=== PATIENT | female | born 1970 | race Caucasian/White ===

== ENCOUNTER → 2017-05-24 09:19 | Outpatient (CLI) | payer BC, SELFPAY ==
--- NOTE | 2017-05-24 09:29 | NM_ITS ---
NM gastric emptying study CLINICAL INDICATION: ITS.REASON: EARLY SATIETY,VOMITING ORDERING PHYSICIAN: Bia East PATIENT AGE: 47 years DOSE: 0.57 mCi technetium sulfa colloid radiolabeled meal COMPARISON: None FINDINGS: The one half emptying time is markedly prolonged an extrapolated at 269 minutes. The study was carried out for ligamentum 89 minutes. During this time only 60% of the gastric contents had emptied. No obvious reflux on the submitted images. IMPRESSION: Gastroparesis
--- NOTE | 2017-05-24 09:46 | HMH.ITSHM ---
LEVOTHYROXINE FEXOFENADINE HYDROCHLOROTHIAZIDE PHENTERMINE OXYBUTYNIN LISINOPRIL MONTELUKAST TOPIRAMATE GABAPENTIN
== END ==
PROVIDERS: Family Provider Family Medicine; PCP Family Medicine; Visit Provider Family Medicine
DX: R11.10 Vomiting, unspecified (principal); R68.81 Early satiety
CPT/HCPCS: 78264; A9541

== ENCOUNTER → 2017-07-13 08:51 | Outpatient (CLI) | payer BC, SELFPAY ==
[2017-07-13 12:03] LABS: Calcium 9.2 mg/dL (8.5-10.1); Free T4 (Free Thyroxine) 1.27 ng/dl (0.76-1.46); Thyroid Stimulating Hormone 5.15 uIU/ml (0.358-3.740)
[2017-07-15 10:47] LABS: Triiodothyronine (T3) Free 2.5 pg/mL (2.0-4.4)
== END ==
PROVIDERS: Visit Provider Otolaryngology
DX: E06.9 Thyroiditis, unspecified (principal)
CPT/HCPCS: 36415; 82310; 84439; 84443; 84481

== ENCOUNTER → 2017-07-26 09:42 | Outpatient (CLI) | payer BC, SELFPAY ==
--- NOTE | 2017-07-26 09:44 | US_ITS ---
US thyroid HISTORY: Dysphasia, neck pain, difficulty swallowing, ITS.REASON: thyroidectomy hx ORDERING PHYSICIAN: Favian Red MD PATIENT AGE: 47 years COMPARISON: 09/14/2016 FINDINGS: The right lobe is enlarged heterogeneous in nature measuring 4.8 x 2 x 1.9 cm with a solid appearing nodule in the mid aspect of the right lobe at 1.3 x 1.2 x 1.8 cm There is history of left thyroidectomy. There does appear to be some residual tissue in the left thyroid bed at 1.3 cm. IMPRESSION: 1. Status post left thyroidectomy with removal of the large left thyroid lobe with some residual tissue in the thyroid bed. 2. Enlarged right lobe of thyroid gland with a central 1.8 cm solid appearing nodule.
--- NOTE | 2017-07-26 09:44 | FL_ITS ---
EXAM: Barium swallow/esophagram. INDICATION: ITS.REASON: diffi. swallowing, prior thyroidectomy ORDERING PHYSICIAN: Favian Red MD PATIENT AGE: 47 years COMPARISON: 09/23/2016 TECHNIQUE: In the upright position the patient was observed to swallow barium in both the AP and lateral view. The cervical esophagus was examined under fluoroscopy with images obtained. The patient was then placed prone in the right anterior oblique position and was observed to swallow barium with Valsalva technique . FLUOROSCOPY TIME: 41 seconds FINDINGS: There was no evidence of aspiration. There was normal peristalsis. No filling defects or mucosal abnormalities. No masses or strictures. The lower cervical esophagus is slightly deviated toward the left as previously described no esophageal mass apparent. There is mild spasm of the distal esophagus. There is a small hiatal hernia. IMPRESSION: 1. Small hiatal hernia with mild esophageal spasm. 2. Minimal esophageal deviation toward the left in the lower cervical region
== END ==
PROVIDERS: Family Provider Family Medicine; PCP Family Medicine; Visit Provider Otolaryngology
DX: R13.10 Dysphagia, unspecified (principal)
CPT/HCPCS: 74220; 76536

== ENCOUNTER → 2017-08-29 09:47 | Outpatient (CLI) | payer BC, SELFPAY ==
--- NOTE | 2017-08-29 09:48 | US_ITS ---
US organ site (thyroid), US biopsy (core), US thyroid HISTORY: ITS.REASON: nodule right thyroid, diff swallowing ORDERING PHYSICIAN: Favian Red MD PATIENT AGE: 47 years COMPARISON: None Right thyroid ultrasound, prebiopsy: Prebiopsy ultrasound performed. Nodule of interest localized corresponding to the exam of 07/26/2017. TECHNIQUE: Following obtaining informed consent, using aseptic technique and local anesthesia with buffered lidocaine, fine-needle aspiration was performed of the nodule of interest using sonographic guidance. 3 passes were made into the nodule with a 25-gauge needle. Specimen was given to cytology. The patient tolerated the procedure well without evidence of immediate complications and left the ultrasound suite in stable condition. CYTOLOGY:Pending IMPRESSION: Uneventful ultrasound-guided FNA of the right thyroid nodule. Cytology pending
== END ==
PROVIDERS: Family Provider Family Medicine; PCP Family Medicine; Visit Provider Otolaryngology
DX: E04.1 Nontoxic single thyroid nodule (principal)
CPT/HCPCS: 10022; 76536; 76942

== ENCOUNTER → 2017-12-07 13:12 | Outpatient (CLI) | payer BC, SELFPAY ==
--- NOTE | 2017-12-07 13:28 | US_ITS ---
US thyroid HISTORY: Follow-up thyroid nodule ITS.REASON: thyroid nodule ORDERING PHYSICIAN: Favian Red MD PATIENT AGE: 47 years Comparison: 07/26/2017 FINDINGS: The right lobe is 4.2 x 1.6 x 2 cm. 2 x 1 cm hypoechoic nodule once again noted in the mid pole with a small focus of calcification. This is unchanged.. The right lobe of the thyroid gland has a heterogeneous nodular appearance.. There does appear to be some residual tissue in the left thyroid bed unchanged. IMPRESSION: No change 2 x 1 cm hypoechoic nodule the right lobe of the thyroid gland.
[2017-12-07 15:08] LABS: Free T4 (Free Thyroxine) 1.02 ng/dl (0.76-1.46)
[2017-12-07 15:12] LABS: Thyroid Stimulating Hormone 5.17 uIU/ml (0.358-3.740)
== END ==
PROVIDERS: Family Provider Family Medicine; PCP Family Medicine; Visit Provider Otolaryngology
DX: E04.1 Nontoxic single thyroid nodule (principal)
CPT/HCPCS: 36415; 76536; 84439; 84443

== ENCOUNTER → 2018-01-12 08:44 | Outpatient (CLI) | payer BC, SELFPAY ==
--- NOTE | 2018-01-12 08:46 | FL_ITS ---
EXAM: Barium swallow/esophagram. INDICATION: ITS.REASON: dysphagia ORDERING PHYSICIAN: Favian Red MD PATIENT AGE: 47 years COMPARISON: 07/26/2017 TECHNIQUE: In the upright position the patient was observed to swallow barium in both the AP and lateral view. The cervical esophagus was examined under fluoroscopy with images obtained. The patient was then placed prone in the right anterior oblique position and was observed to swallow barium with Valsalva technique . FLUOROSCOPY TIME: 1 minute and 6 seconds FINDINGS: There was no evidence of aspiration. There was normal peristalsis. No filling defects or mucosal abnormalities. No masses or strictures. There is a small hiatal hernia with a non-constricting Schatzki's ring. The ring however does allow the passage of a 12 mm barium tablet without difficulty. The upper thoracic esophagus is once again noted to be slightly deviated toward the left similar to the previous exam. IMPRESSION: Small hiatal hernia with a nonconstricting Schatzki's ring No change minimal deviation of the upper thoracic esophagus toward the left
== END ==
PROVIDERS: Family Provider Family Medicine; PCP Family Medicine; Visit Provider Otolaryngology
DX: E03.9 Hypothyroidism, unspecified (principal); R13.10 Dysphagia, unspecified
CPT/HCPCS: 36415; 74220; 84439; 84443

== ENCOUNTER → 2018-07-24 09:48 | Outpatient (CLI) | payer BC, SELFPAY ==
--- NOTE | 2018-07-24 09:54 | XR_ITS ---
EXAM: XR lumbar spine min 4V HISTORY: ITS.REASON: LOW BACK PAIN,SCIATICA ORDERING PHYSICIAN: Bia East PATIENT AGE: 48 years COMPARISON: None FINDINGS: There is mild degenerative disc disease at L3-L4 L4-L5 and L5-S1 with disc space narrowing which appears most severe at L5-S1. No fracture or dislocation. No lytic or blastic change. There is mild facet arthritic change at L5-S1. IMPRESSION: Mild lumbar spondylosis with degenerative disc disease and facet arthritic change as described above
== END ==
PROVIDERS: PCP Family Medicine; Visit Provider Family Medicine
DX: M54.5 Low back pain (principal); M54.30 Sciatica, unspecified side
CPT/HCPCS: 72110

== ENCOUNTER 2018-11-02 14:30 | Outpatient (RCR) | payer BC, SELFPAY ==
--- NOTE | 2018-08-30 11:28 | HMH.PTOPEV ---
PT Outpatient Evaluation Rehab PT Outpatient Evaluation Start: 08/30/18 10:16 Freq: Status: Active Protocol: Document 08/30/18 11:09 ADA (Rec: 08/30/18 11:25 PHOODETTE [id number]) Electronically Signed By Al Weiss, PT 08/30/18 11:09 Outpatient Therapy Subjective History Subjective History Pt is 48 yowf who presents with c/o low back pain on right side for many years, but worse x 2 mos. She reports no known injury and pain is worse with standing or bending . She had X-ray performed which shows mild DDD at L3-4, L4-5, and L5-S1. She reports feelings of catching especially with getting up in the am. She reports she has been going to chiropractor with no relief. She reports no significant PMH. Chief Complaint Pain,Stiff Symptom Type Sharp Symptoms Relieved By Rest/Positioning Symptoms Aggravated By Standing,Bending/Stooping, Physical Activity Prior Functional Limitations None Current Functional Limitations Housework,Standing,Bending/ Stooping Symptom Description Intermittent,Activity Dependent Level of pain today (0-10) 5 Pain scale - at its worst (0-10) 10 Lumbopelvic Eval Palapation tenderness right lumbar spinal tenderness Yes buttock tenderness Yes Lumbar/Sacral Palpation Findings Tenderness Lumbar/Sacral Palpation Overall Comment tender over right SI Accessory Movement L-spine Vertebrae Accessory Movements Central P/A [place] that Elicit Symptoms L2 bilateral L3 bilateral L4 bilateral L5 bilateral S1 bilateral Range of Motion Lumbar Spine Active Flexion Range of 0-40 Motion (degrees) Lumbar Spine Active Extension Range of 0-15 Motion (degrees) Left Lumbar Spine Lateral Flexion Active 0-5 Range of Motion (degrees) Right Lumbar Spine Lateral Flexion 0-15 Active Range of Motion (degrees) Manual Muscle Test Bilateral Knee Extension Strength Grade 5 Normal Knee Flexion Strength Grade 5 Normal Hip Flexion Strength Grade 5 Normal Hip Abduction Strength Grade 5 Normal Hip Adduction Strength Grade 5 Normal Ankle Dorsiflexion Strength Grade 5 Normal
--- NOTE | 2018-10-06 10:35 | HMH.RHREAS ---
Rehab Reassessment Rehab OP Re-assessment Start: 10/06/18 10:27 Freq: Status: Active Protocol: Document 10/06/18 10:27 ADA (Rec: 10/06/18 10:35 ADA [id number]) Electronically Signed By Al Weiss, PT 10/06/18 10:27 Rehab Re-assessment Subjective Subjective Pt reports she feels better overall, but has continued pain with prolonged standing or forward bending. Objective Objective Notes Lumbar AROM (in deg): Flex= 0- 65, Ext= 0-35, R SB= 0-25, L SB= 0-25. Pain: 6/10 at worst Assessment Progress Assessment Progressing as Expected Assessment Notes Pt with much improved AROM of the lumbar spine, overall pain is decreased as well. Patient goals met ST-5 Goals Not Met LT-5 Revised Goals none Plan Plan Continue per initial POC. Frequency of Therapy 2 x/wk Duration of therapy 8 wks Time and Billing Re-Eval Time 15 Re-Eval Billing Units 1 PHYSICIAN CERTIFICATION: I certify the specified therapy services for Chandni Morales are required, authorized, and reviewed every 30 days.
== END 2018-11-02 14:35 | disposition home or self-care (01) ==
LOC: PT 14:30
PROVIDERS: Visit Provider Nurse Practitioner Family
DX: M54.41 Lumbago with sciatica, right side (principal)
CPT/HCPCS: 97010; 97012; 97014; 97110; 97140; 97163; 97164; G0283

== ENCOUNTER → 2018-11-28 12:48 | Outpatient (CLI) | payer BC, SELFPAY ==
[2018-11-28 14:15] LABS: Basophils # 0.1 K/mm3 (0-0.2); Basophils % 0.7 % (0.1-2.0); Eosinophils # 0.2 K/mm3 (0.0-0.4); Eosinophils % 2.4 % (0.1-12.0); Hematocrit 34.7 % (37.0-47.0); Hemoglobin 10.1 g/dL (12.2-16.2); Lymphocytes # 1.4 K/mm3 (0.7-4.5); Lymphocytes % 20.6 % (10-50); Mean Corpuscular HGB Conc 29.2 g/dL (31.8-35.4); Mean Corpuscular Hemoglobin 21.1 pg (27.0-31.2); Mean Corpuscular Volume 72.3 fl (81-99); Mean Platelet Volume 7.3 fl (7.4-10.4); Monocytes # 0.4 K/mm3 (0.1-1.0); Monocytes % 6.4 % (1.7-9.3); Neutrophils # 4.6 K/mm3 (1.8-7.8); Platelet Count 418 K/mm3 (142-424); Red Blood Count 4.79 M/mm3 (4.20-5.40); Red Cell Distribution Width 16.9 % (11.5-17.5); White Blood Count 6.6 K/mm3 (4.8-10.8)
[2018-11-28 14:54] LABS: Alanine Aminotransferase 32 U/L (12-78); Albumin Level 3.5 gm/dL (3.4-5.0); Albumin/Globulin Ratio 0.9 (1.1-1.8); Alkaline Phosphatase 107 U/L (46-116); Anion Gap 15.4 mEq/L (5-15); Aspartate Amino Transferase 20 U/L (15-37); Bilirubin,Total 0.3 mg/dL (0.2-1.0); Blood Urea Nitrogen 22 mg/dL (7-18); Calcium 9.3 mg/dL (8.5-10.1); Carbon Dioxide 28 mmol/L (21.0-32.0); Chloride 103 mmol/L (98-107); Creatinine,Serum 0.82 mg/dL (0.55-1.02); Estimated Glomerular Filt Rate 75 ml/min (>60); GFR (African American) 90 ML/MIN (>60); Globulin 3.8 gm/dl (1.3-3.2); Glucose 89 mg/dL (74-106); Potassium 3.4 mmoL/L (3.5-5.1); Sodium 143 mmol/L (136-145); Thyroid Stimulating Hormone 0.01 uIU/ml (0.358-3.740); Total Protein,Serum 7.3 gm/dL (6.4-8.2)
[2018-11-28 15:43] LABS: Hemoglobin A1C 5.6 % (0.0-7.0)
[2018-11-29 06:09] LABS: Iron 13 ug/dL (27-159); UIBC 253 ug/dL (131-425)
[2018-11-29 07:28] LABS: Iron Saturation 5 % (15-55)
== END ==
PROVIDERS: Visit Provider Internal Medicine Adolescent Medicine
DX: I10 Essential (primary) hypertension (principal)
CPT/HCPCS: 36415; 80053; 83036; 83540; 83550; 84443; 85025

== ENCOUNTER → 2018-12-28 14:30 | Outpatient (CLI) | payer SELFPAY ==
[2018-12-28 15:50] LABS: Free T4 (Free Thyroxine) 1.34 ng/dl (0.76-1.46); Thyroid Stimulating Hormone 0.01 uIU/ml (0.358-3.740)
== END ==
PROVIDERS: Visit Provider Otolaryngology
DX: E03.9 Hypothyroidism, unspecified (principal)
CPT/HCPCS: 36415; 84439; 84443

== ENCOUNTER → 2019-09-20 11:44 | Outpatient (CLI) | payer BC, SELFPAY ==
--- NOTE | 2019-09-20 11:58 | XR_ITS ---
PROCEDURE: XR CHEST 2V CLINICAL HISTORY: COUGH, BODY ACHES COMPARISON: CXR CHEST(2 VIEWS-NOT PORTABLE) from 10/06/2016 CXR1VP XR chest portable from 07/04/2017 CXR2V XR chest 2V from 07/26/2018 FINDINGS: Mild upper thoracic scoliosis is noted. The lung myers are clear. The cardiac silhouette and the soft tissues are unremarkable. IMPRESSION: Mild thoracic scoliosis, clear lung myers Dictated by: Wilbur Bell 09/20/2019 13:57 Electronically signed by Wilbur Bell in [facility] 09/20/2019 13:57
[2019-09-20 12:14] LABS: Basophils # 0.1 K/mm3 (0-0.2); Eosinophils # 0.3 K/mm3 (0.0-0.4); Eosinophils % 3.3 % (0.1-12.0); Hematocrit 38.6 % (37.0-47.0); Hemoglobin 12.7 g/dL (12.2-16.2); Lymphocytes # 2.4 K/mm3 (0.7-4.5); Lymphocytes % 31.2 % (10-50); Mean Corpuscular Hemoglobin 29.1 pg (27.0-31.2); Mean Corpuscular Volume 88.4 fl (81-99); Mean Platelet Volume 7.6 fl (7.4-10.4); Monocytes # 0.3 K/mm3 (0.1-1.0); Monocytes % 3.5 % (1.7-9.3); Neutrophils # 4.8 K/mm3 (1.8-7.8); Neutrophils % 61.1 % (37.0-80.0); Platelet Count 275 K/mm3 (142-424); Red Blood Count 4.37 M/mm3 (4.20-5.40); Red Cell Distribution Width 14.4 % (11.5-17.5); White Blood Count 7.8 K/mm3 (4.8-10.8)
[2019-09-20 12:21] LABS: Monoscreen (Rapid) Negative (Negative)
[2019-09-20 13:19] LABS: Alanine Aminotransferase 34 U/L (12-78); Albumin/Globulin Ratio 1.2 (1.1-1.8); Alkaline Phosphatase 159 U/L (38-126); Anion Gap 9.5 mEq/L (5-15); Aspartate Amino Transferase 40 U/L (14-36); Bilirubin,Total 0.4 mg/dl (0.2-1.3); Blood Urea Nitrogen 16 mg/dl (7-17); Calcium 9.8 mg/dl (8.4-10.2); Carbon Dioxide 28 mmol/L (22.0-30.0); Chloride 103 mmol/L (98-107); Estimated Glomerular Filt Rate 67 ml/min (>60); GFR (African American) 81 ML/MIN (>60); Globulin 3.3 g/dL (1.3-3.2); Glucose 94 mg/dl (74-100); Potassium 4.5 mmoL/L (3.5-5.1); Sodium 136 mmol/L (136-145); Total Protein,Serum 7.3 g/dl (6.3-8.2)
[2019-09-20 13:36] LABS: Coronavirus 19 IgG Antibody Negative (Negative); Coronavirus 19 IgM Antibody Negative (Negative)
== END ==
PROVIDERS: Visit Provider Internal Medicine Adolescent Medicine
DX: R05 Cough (principal); R52 Pain, unspecified
CPT/HCPCS: 36415; 71046; 80053; 85025; 86318; 86328

== ENCOUNTER → 2019-11-28 09:40 | Outpatient (CLI) | payer BC, SELFPAY ==
[2019-11-28 11:47] LABS: Free Thyroxine Index 4.7 ug/dL (5.93-13.13); Triiodothryronine (T3) Uptake 36 % (23.5-40.5)
== END ==
PROVIDERS: Visit Provider Internal Medicine Adolescent Medicine
DX: E03.9 Hypothyroidism, unspecified (principal)
CPT/HCPCS: 36415; 84436; 84443; 84479

== ENCOUNTER 2020-01-09 15:02 | Emergency (ER) | payer BC, SELFPAY ==
[2020-01-09 15:33] VITALS: BP 168/93; PULSE 90; RESP 18; TEMP 36.8; O2SAT 96; BMI 47.2
--- NOTE | 2020-01-09 15:44 | XR_ITS ---
PROCEDURE: XR CHEST 2V CLINICAL HISTORY: shortness of breath, cough COMPARISON: CR CXR1VP XR chest portable from 07/04/2017 CR CXR2V XR chest 2V from 07/26/2018 CR XR CHEST 2V from 09/20/2019 FINDINGS: The cardiomediastinal silhouette and pulmonary vascularity are within normal limits. The lungs are clear without infiltrates, suspicious nodules, or pleural effusions. No acute bony abnormalities. IMPRESSION: No acute findings. Dictated by: Raffaele Membreno MD 01/09/2020 16:29 Raffaele Membreno MD in [facility] 01/09/2020 16:29
--- NOTE | 2020-01-09 15:46 | HMH.EDUTC ---
[facility] [place] Impression: Viral syndrome, Bronchitis Disposition: Home, Self-Care Condition on Discharge: Good Instructions: DI for Viral Syndrome, Preventing the Spread of Coronavirus Discharge Instructions Additional Instructions: Drink plenty of fluids. Take tylenol or ibuprofen for pain or fever. Take the medications as directed. Follow up with your regular doctor. GO TO THE ER FOR ANY WORSENING SYMPTOMS FOLLOW THE DIRECTIONS ON THE COVID-19 HAND OUT THAT WE GAVE YOU REGARDING SELF-ISOLATION UNTIL YOU KNOW YOUR COVID-19 RESULTS Prescriptions: Ondansetron [Zofran 4mg ODT] 4 mg PO Q8HP PRN #9 tab.rapdis PRN Reason: Nausea Transmission Status: Received by [facility] Azithromycin [Z-Td 250mg Tab*] 250 mg PO UD DOSE PK #6 tab Transmission Status: Received by [facility] Referrals: Rodrigue Lanier MD [Primary Care Provider] - Forms: Work/School Release Time of Disposition: 16:40 Medical Decision Making - Medical Records Medical records reviewed: No: I reviewed the patient's medical records. - Brad Inquiry Pt receiving controlled substance: No Vital Signs: 01/09/20 15:33 01/09/20 16:48 Temperature 98.3 F 98.3 F Temperature Source Oral Oral Pulse Rate 90 Pulse Rate [Radial] 90 Respiratory Rate 18 18 Blood Pressure 168/93 H Blood Pressure [Right Arm] 168/93 H Blood Pressure Mean [Right Arm] 118 Blood Pressure Source Automatic Cuff Blood Pressure Source [Right Arm] Automatic Cuff Blood Pressure Position Sitting Blood Pressure Position [Right Arm] Sitting 02 Sat by Pulse Oximetry 96 Oxygen Delivery Method Room Air Room Air - Lab Data Lab Results 01/09/20 19:29: Influenza Type A Ag Negative, Influenza Type B Ag Negative 01/09/20 19:29: Strep Scn Rapid Clinic Negative Orders (Tests/Meds): ED MEDICATIONS Discontinued Medications Generic Name Dose Route Start Last Admin Trade Name Freq PRN Reason Stop Dose Admin Ondansetron HCl 4 mg 01/09/20 15:39 01/09/20 16:03 Ondansetron 4mg Odt SL 01/09/20 15:40 4 mg ONCE ONE Administration ORDERS Category Date Time Status Full Resp Panel w/COVID ([facility]) Routine Lab 01/09/20 15:41 Received Strep Screen Confirmation Stat Micro 01/09/20 19:29 [place] [facility] [place] - General Stated complaint: fever,sore throat SOA Time Seen by Provider: 01/09/20 15:46 Mode of Arrival: Ambulatory Source of Information: Patient Limitations: No Limitations Description of Symptoms (Recalled from Triage Doc. by RN): sob, rmoe, cough, vomiting, pain in chest and upper back that started last night. HEENT Symptoms (Recalled from RN notes): Yes Resp Symptoms (Recalled from RN notes): No Skin Symptoms (Recalled from RN notes): No MS Symptoms (Recalled from RN notes): No Functional Status (Recalled from RN notes): wnl - History of Present Illness Provider Complaint: She states that last night she started feeling bad. Since then she has been having body aches, fever, chills, chest tightness, cough and n/v. She denies any known exposure to covid. - Related Data Home Medications Medication Instructions Recorded Confirmed Baclofen [Lioresal 10mg tablet] 1 tab PO DIRECTED PRN 07/04/17 01/01/19 Fexofenadine HCl 1 tab PO DAILY 07/04/17 01/01/19 Montelukast Sodium [Montelukast 10 mg PO HS 07/04/17 01/01/19 10mg Tab] Oxybutynin Chloride [Oxybutynin 10 mg PO DAILY 07/04/17 01/01/19 Chloride ER] Topiramate 1 tab PO HS 07/04/17 01/01/19 lisinopriL [Lisinopril 5mg 1 tab PO DAILY 07/04/17 01/01/19 Tablet] aspirin 81 mg tablet,delayed 81 mg PO DAILY 30 Days #30 09/05/17 01/01/19 release Levothyroxine Sodium 200 mcg PO DAILY 05/15/18 01/01/19 [Levothyroxine 200mcg (0.2mg) Tab] Levothyroxine Sodium 25 mcg PO DAILY 05/15/18 01/01/19 [Levothyroxine 25mcg (0.025mg) Tab] Citalopram Hydrobromide 20 mg PO DAILY 06/21/18 01/01/19 [Citalopram HBr] Metoclopramide HCl [Metoclopra
--- NOTE | 2020-01-09 16:24 | ECG_ITS ---
APPROVED REPORT Exam: Resting ECG HR:85 bpm ECG Measurements Heart Rate 85 AXES MD 158 P 34 QRSd 92 QRS 5 QT 394 T 26 QTc 468 Conclusion Normal sinus rhythm Poor r wave progression Abnormal ECG Electronically signed by : Edward Joshi, 01/13/2020 09:46:52
[2020-01-09 16:48] VITALS: BP 168/93; PULSE 90; RESP 18; TEMP 36.8; O2SAT 96
[2020-01-09 19:31] LABS: UTC Strep Screen (Rapid) Negative (Negative)
[2020-01-09 19:32] LABS: UTC Influenza A Antigen Negative (Negative); UTC Influenza B Antigen Negative (Negative)
[2020-01-11 13:57] LABS: Covid-19 Nasal PCR Sendout Lex Not Detected
== END 2020-01-09 16:49 | disposition home or self-care (01) ==
PROVIDERS: Emergency Provider Nurse Practitioner Family; PCP Internal Medicine Adolescent Medicine
DX: Z20.828 Contact with and (suspected) exposure to other viral communicable diseases (principal); B34.9 Viral infection, unspecified; J20.9 Acute bronchitis, unspecified; I10 Essential (primary) hypertension; E11.9 Type 2 diabetes mellitus without complications; K21.9 Gastro-esophageal reflux disease without esophagitis; G43.709 Chronic migraine without aura, not intractable, without status migrainosus; E03.9 Hypothyroidism, unspecified; Z88.0 Allergy status to penicillin; Z88.5 Allergy status to narcotic agent; Z79.899 Other long term (current) drug therapy
CPT/HCPCS: 71046; 87581; 87633; 87798; 87804; 87880; 93005; 99202; U0004

== ENCOUNTER → 2020-02-14 11:21 | Outpatient (CLI) | payer BC, SELFPAY | PROVIDERS: PCP Internal Medicine Adolescent Medicine; Visit Provider Nurse Practitioner Family | DX: Z03.818 Encounter for observation for suspected exposure to other biological agents ruled out (principal) | CPT/HCPCS: U0003 ==

== ENCOUNTER 2020-02-22 15:06 | Emergency (ER) | payer BC, SELFPAY ==
[2020-02-22 15:07] VITALS: BP 152/93; PULSE 104; RESP 18; TEMP 36.9; O2SAT 97; BMI 46.0
--- NOTE | 2020-02-22 15:16 | CT_ITS ---
PROCEDURE: CT THORACIC SPINE WO CON Referring Doctor: Bautista Moran Patient Age:49Y CLINICAL HISTORY: fall. Thoracic pain. Lumbar pain a COMPARISON: CT NECKW CT SOFT TISSUE NECK W/CONTRAST from 09/14/2016 CR CXR CHEST(2 VIEWS-NOT PORTABLE) from 10/06/2016 CT ABDPELW/O CT ABD PELVIS W/O CONTRAST from 10/15/[address] LUMBAR SPINE W/O CONTRAST from 10/15/2016 XA LHCWVENT CL lhc w ventricle from 08/16/2017 DX,RF BS FL barium swallow from 01/12/2018 CR CXR2V XR chest 2V from 07/26/2018 CR XR CHEST 2V from 09/20/2019 CR XR CHEST 2V from 01/09/2020 TECHNIQUE: No IV contrast Helical axial images obtained with sagittal and coronal reformats. All CT scans at the facility use one or more dose reduction, viz: automated exposure control, ma/kV adjustment per patient size (including targeted exams where dose is matched to indication, i.e. head), or iterative reconstruction technique. FINDINGS: Mild superior endplate compression at T6 favor is old. Slight loss of height at superior endplate with mild concavity. Age indeterminate strongly favor old finding-. I believe this is actually vaguely evident on lateral CXR from September 20 2019 as well as other old CXR studies-further supporting more likely longstanding feature Also today's CT reveals no perispinal mass or other features to raise concern. Remainder of the lower thoracic vertebral bodies appear intact The vertebral bodies at T7 through to L1 appears stable since a prior CT abdomen 2016. No additional compression fractures or findings here There is degenerative disc space narrowing and mild cervical spondylosis at C6/7 noted, but otherwise the upper T-spine from C7 through T5 appear intact with only subtle narrowing at T4/5 disc space and T3/4 suggesting early degenerative disc changes The the visualized posterior lungs and ribs adjacent to the spine appear satisfactory no significant findings.. IMPRESSION: . No discrete acute fracture or findings at the thoracic spine . . Minimal superior endplate concavity at T6 favor old, suspect reflects mild old superior endplate compression injury remote past Dictated by: Davion Perea MD 02/23/2020 11:37 Davion Perea MD in [facility] 02/23/2020 11:37
--- NOTE | 2020-02-22 15:17 | CT_ITS ---
PROCEDURE: CT LUMBAR SPINE WO CON Referring Doctor: Bautista Moran Patient Age:49Y CLINICAL HISTORY: fall abdominal pain back pain right leg pain. COMPARISON: CT LSWO CT LUMBAR SPINE W/O CONTRAST from 10/15/2016 TECHNIQUE: No IV contrast Helical axial images obtained with sagittal and coronal reformats. All CT scans at the facility use one or more dose reduction, viz: automated exposure control, ma/kV adjustment per patient size (including targeted exams where dose is matched to indication, i.e. head), or iterative reconstruction technique. FINDINGS: No acute fracture nor subluxation lumbar spine. Slight progression of degenerative findings/degenerative disc changes at the lower L-spine since 1999 17 With this there is slight progression of the levoscoliosis most notable at the L3/4 level T11/12. Scant of foraminal disc bulge. Trace degenerative facet changes T12/L1 disc intact trace degenerative facet changes L1/L2 disc intact. Unremarkable. L2/L3 disc intact unremarkable L3/4. Progression degenerative disc space narrowing to the right with resulting progression of mild levoscoliosis at this level Mild spur disc bulge and facet hypertrophy yield mild narrowing the spinal canal. Mild bilateral foraminal encroachment. L4/5: Slight progression of degenerative disc space narrowing narrowing and changes. Trace diffuse disc bulge and moderate facet hypertrophy bilateral. L 5/S1.. Similar degenerative disc space narrowing and changes, with vacuum phenomena. Mild disc bulge most evident just left of midline this small focal disc bulge or early protrusion abut and may slightly displace left S1 nerve root-. This was seen previously and appears similar.. Bilateral facet hypertrophy .. SI joint and sacrum stable minor degenerative changes SI joints but IMPRESSION: No acute fracture or findings at the lumbar spine The degenerative changes lower L-spine as detailed in body of report: . Note there has been progressive degenerative disc space narrowing rightward at at L3/4 which contributes to the progressive levoscoliosis at this level compared to 2017 . L5/S1 with disc bulge, small protrusion just the left of midline appears to abut and slightly displace left S1 nerve root-but no significant change here since 2017 Dictated by: Davion Perea MD 02/23/2020 11:59 Davion Perea MD in [facility] 02/23/2020 11:59
--- NOTE | 2020-02-22 15:18 | HMH.EDBACK ---
ED Disposition Clinical Impression: Abrasion Fall Qualifiers: Encounter type: initial encounter Qualified Code(s): W19.XXXA - Unspecified fall, initial encounter Thoracic back pain Qualifiers: Chronicity: acute Back pain laterality: bilateral Qualified Code(s): M54.6 - Pain in thoracic spine Disposition: Home, Self-Care Condition on Discharge: Good Instructions: DI for Low Back Pain Referrals: Rodrigue Lanier MD [Primary Care Provider] - Time of Disposition: 17:11 - Critical Care Critical Care Time: No Attestation: On , the high probability of a clinically significant, sudden or life threatening deterioration of the following system(s) required my full and direct attention, intervention and personal management. The time I documented below is in addition to time spent performing reported procedures but includes the following listed in this critical care notation. Medical Decision Making - Brad Inquiry Pt receiving controlled substance: No Brad was queried for this patient: No Vital Signs: 02/22/20 15:07 02/22/20 15:43 02/22/20 16:07 Temperature 98.5 F Temperature Source Oral Pulse Rate [Right] 104 H 98 H 95 H Respiratory Rate 18 20 Blood Pressure [Right Arm] 152/93 H 155/76 H 157/70 H Blood Pressure Mean [Right Arm] 112 102 99 Blood Pressure Source [Right Arm] Automatic Cuff Automatic Cuff Blood Pressure Position [Right Arm] Sitting Sitting 02 Sat by Pulse Oximetry 97 100 91 L Oxygen Delivery Method Room Air 02/22/20 16:30 Temperature Temperature Source Pulse Rate [Right] 94 H Respiratory Rate Blood Pressure [Right Arm] 137/74 Blood Pressure Mean [Right Arm] 95 Blood Pressure Source [Right Arm] Automatic Cuff Blood Pressure Position [Right Arm] Sitting 02 Sat by Pulse Oximetry 98 Oxygen Delivery Method Room Air - Lab Data Lab Results 02/22/20 15:30: WBC 9.7, RBC 5.17, Hgb 14.0, Hct 43.8, MCV 84.7, MCH 27.1, MCHC 32.0, RDW 14.4, Plt Count 360, MPV 7.2 L, Neut % (Auto) 69.6, Lymph % (Auto) 24.3, [place] % (Auto) 4.7, Eos % (Auto) 0.7, Baso % (Auto) 0.7, Neut # (Auto) 6.7, Lymph # (Auto) 2.3, [place] # (Auto) 0.5, Eos # (Auto) 0.1, Baso # (Auto) 0.1 Result diagrams: 02/22/20 15:30 Orders (Tests/Meds): ED MEDICATIONS Discontinued Medications Generic Name Dose Route Start Last Admin Trade Name Freq PRN Reason Stop Dose Admin Oxycodone/Acetaminophen 1 each 02/22/20 15:17 02/22/20 15:26 Oxycodone 5mg W/Apap 325mg Tablet PO 02/22/20 15:18 1 each ONCE ONE Administration ORDERS Category Date Time Status CT lumbar spine wo con Stat Cat Scan 02/22/20 15:[address] thoracic spine wo con Stat Cat Scan 02/22/20 15:16 Taken - CT Data CT Scan: T-Spine, L-Spine Time Received: 16:[address] Reviewed: Yes: I have reviewed the patient's CT results, I have viewed the radiologist's interpretation Preliminary Findings: Normal/NAD Medical Decision Narrative: 49yo F evaluated for acute back pain secondary to injury. Patient's pain is being treated at this time. Exam, other than acute tenderness to the area, he is unremarkable. CT of the spine unremarkable. Pain is better controlled now. Discussed results with the patient and that she needs to remain as active as possible. Tylenol/Motrin for aches and pains. Follow-up PCP next week. Back Pain HPI - General Chief Complaint: Back Pain/Injury Stated Complaint: [id number] back injury Time Seen by Provider: 02/22/20 15:18 Mode of Arrival: Ambulatory Limitations: No Limitations Description of Symptoms (Recalled from ER Triage Doc. by RN): Injury to her back 15 mins ago after falling and hitting her back on the ground. Pt states she is also bleeding from her rectum but is unsure if the 2 are related. - History of Present Illness HPI Narrative: 49yo morbidly obese F with past medical history of hypertension presents to the emergency department secondary to back pain. She reports she was trying to climb onto her
[2020-02-22 15:43] VITALS: BP 155/76; PULSE 98; RESP 20; O2SAT 100
[2020-02-22 15:43] LABS: Basophils # 0.1 K/mm3 (0-0.2); Basophils % 0.7 % (0.1-2.0); Eosinophils # 0.1 K/mm3 (0.0-0.4); Eosinophils % 0.7 % (0.1-12.0); Hematocrit 43.8 % (37.0-47.0); Lymphocytes # 2.3 K/mm3 (0.7-4.5); Lymphocytes % 24.3 % (10-50); Mean Corpuscular Hemoglobin 27.1 pg (27.0-31.2); Mean Corpuscular Volume 84.7 fl (81-99); Mean Platelet Volume 7.2 fl (7.4-10.4); Monocytes # 0.5 K/mm3 (0.1-1.0); Monocytes % 4.7 % (1.7-9.3); Neutrophils # 6.7 K/mm3 (1.8-7.8); Neutrophils % 69.6 % (37.0-80.0); Platelet Count 360 K/mm3 (142-424); Red Blood Count 5.17 M/mm3 (4.20-5.40); Red Cell Distribution Width 14.4 % (11.5-17.5); White Blood Count 9.7 K/mm3 (4.8-10.8)
[2020-02-22 16:07] VITALS: BP 157/70; PULSE 95; O2SAT 91
[2020-02-22 16:30] VITALS: BP 137/74; PULSE 94; O2SAT 98
[2020-02-22 17:20] VITALS: BP 156/62; PULSE 85; RESP 14; TEMP 36.8; O2SAT 99
== END 2020-02-22 17:21 | disposition home or self-care (01) ==
PROVIDERS: Emergency Provider Family Medicine; PCP Internal Medicine Adolescent Medicine
DX: S20.419A Abrasion of unspecified back wall of thorax, initial encounter (principal); M54.6 Pain in thoracic spine; W01.198A Fall on same level from slipping, tripping and stumbling with subsequent striking against other object, initial encounter; Y92.099 Unspecified place in other non-institutional residence as the place of occurrence of the external cause; I10 Essential (primary) hypertension; K21.9 Gastro-esophageal reflux disease without esophagitis; E11.9 Type 2 diabetes mellitus without complications; F33.1 Major depressive disorder, recurrent, moderate; Z88.0 Allergy status to penicillin; Z88.5 Allergy status to narcotic agent
CPT/HCPCS: 72128; 72131; 85025; 99283

== ENCOUNTER → 2020-03-04 12:18 | Outpatient (CLI) | payer BC, SELFPAY ==
[2020-03-04 13:20] LABS: Adenovirus,PCR Not Detected (NotDetected); Bordetella Pertussis Not Detected (NotDetected); Chlamydophila Pneumoniae, PCR Not Detected (NotDetected); Coronavirus 19, PCR Not Detected (NotDetected); Coronavirus 229E Not Detected (NotDetected); Coronavirus NL63 Not Detected (NotDetected); Coronavirus OC43 Not Detected (NotDetected); Coronovirus HKU1,PCR Not Detected (NotDetected); Human Metapneumovirus Not Detected (NotDetected); Influenza A, PCR Not Detected (NotDetected); Influenza AH1, 2009 Not Detected (NotDetected); Influenza AH1, PCR Not Detected (NotDetected); Influenza AH3,PCR Not Detected (NotDetected); Influenza B, PCR Not Detected (NotDetected); Mycoplasma Pneumoniae, PCR Not Detected (NotDetected); Parainfluenza 1, PCR Not Detected (NotDetected); Parainfluenza 2, PCR Not Detected (NotDetected); Parainfluenza 3, PCR Not Detected (NotDetected); Parainfluenza 4, PCR Not Detected (NotDetected); Respiratory Syncytial Virus Not Detected (NotDetected); Rhinovirus/Enterovirus Not Detected (NotDetected)
[2020-03-04 13:54] LABS: Strep Scrn Group A (Rapid) Negative (Negative)
== END ==
PROVIDERS: PCP Internal Medicine Adolescent Medicine; Visit Provider Internal Medicine Adolescent Medicine
DX: Z03.818 Encounter for observation for suspected exposure to other biological agents ruled out (principal); J02.9 Acute pharyngitis, unspecified
CPT/HCPCS: 87430; 87581; 87633; 87798

== ENCOUNTER → 2020-03-11 14:52 | Outpatient (CLI) | payer BC, SELFPAY ==
--- NOTE | 2020-03-11 14:57 | US_ITS ---
PROCEDURE: US TRANSVAGINAL CLINICAL INDICATION: MENORRHAGIA W/ REGULAR CYCLE COMPARISON: No exams were available for comparison FINDINGS: UTERUS: 7cm x 4cmx 4cm with a combined endometrial thickness of 10.7mm LEFT OVARY: [id number] with a volume of 7.7ml. RIGHT OVARY: [id number] with a volume of 3.9ml. Small simple cysts seen in each ovary at 1 cm on the right and 1.6 cm on the left IMPRESSION: Negative pelvic ultrasound Dictated by: Raffaele Membreno MD 03/12/2020 09:59 Raffaele Membreno MD in [facility] 03/12/2020 09:59
== END ==
PROVIDERS: PCP Internal Medicine Adolescent Medicine; Visit Provider Internal Medicine Adolescent Medicine
DX: N92.0 Excessive and frequent menstruation with regular cycle (principal)
CPT/HCPCS: 76830

== ENCOUNTER → 2020-05-05 07:18 | Outpatient (CLI) | payer BC, SELFPAY ==
--- NOTE | 2020-05-05 | CA_ITS ---
APPROVED REPORT Exam: Pharmacologic Technologist: Jo-Ann Mayberry Ht: 5 ft 3 in Wt: 278 lbs BSA: 2.22 m2 HR: 68 bpm BP: 127/63 mmHg Indications: Exertional Angina Medical History Medications: Lisinopril,,,,, Levothyroxine,,,,, Aspirin,,,,, Carvedilol,,,,, Citalopram,,,,, Ropinirole,,,,, TopIRAMATE,,,,, Montelukast,,,,, Metoclopramide,,,,, BuPROPION,,,,, OxYbutynin,,,,, Fexofenadine,,,,, Stress Test Details Test: LEXISCAN HR Resting HR: 74 bpm Max Heart Rate (APMHR): 171 bpm Max HR Achieved: 111 bpm Target HR (85% APMHR): 145 bpm % of APMHR: 64 Recovery HR: 85 bpm BP Resting BP: 127.0/63.0 mmHg Max BP: 169.0/66.0 mmHg Recovery BP: 134.0/61.0 mmHg ECG Resting ECG: Sinus rhythm Clinical Exercise duration: 04:01 min Highest Stage Achieved: Stress ECG Conclusion Lexiscan protocol completed. Patient complained of shortness of breath and chest pain during peak infusion. Symptoms: Chest pain and shortness of breath during peak infusion, resolved in recovery. Arrhythmias/Ectopy: No ectopy ST-T Changes: Less than 1.[address] depression Conclusion: Images to follow Test Summary REST . . . . . . . Resting REST 02:21 . . 74 . 127/ 63 . . Stage 1 . . . . . . . Cardiolite injected Stage 1 01:00 . . 111 . . . . Stage 2 01:00 . . 106 . 148/ 87 . . Stage 3 01:00 . . 105 . . . . Stage 4 01:00 . . 101 . 169/ 66 . . Stage 4 01:01 . . 101 . 169/ 66 . Stop exercise at 04:01 RECOVERY 01:00 . . 98 . 164/ 72 . . RECOVERY 02:00 . . 97 . 134/ 61 . . RECOVERY 03:00 . . 96 . 134/ 61 . . RECOVERY 03:52 . . 89 . 134/ 61 . . Electronically signed by : Mat Wei, 05/05/2020 21:59:00
--- NOTE | 2020-05-05 07:42 | NM_ITS ---
APPROVED REPORT Exam: Nuclear Stress Test Indication: Chest pain, SOB, HTN, Family history Patient Location: Outpatient Stress Tech: Jo-Ann Mayberry NM Tech:Angelina Cross, ARRT, RT (R)(N) Ht: 5 ft 3 in Wt: 278 lbs Bra Size: 44D HR: 68 bpm BP: 127/63 mmHg BSA: 2.22 m2 BMI: 49.2 History: Chest pain, SOB, HTN, Family history Procedure: Patient received a 0.4 mg of intravenous Lexiscan, resting heart rate 68 bpm, resting blood pressure 127/63 mmHg, with Lexiscan maximum heart rate achived was 105 bpm which is Less than 85 % of the maximum predicted heart rate and blood pressure was 148/87 mmHg. Electrocardiogram Resting electrocardiogram showed sinus rhythm, with Lexiscan there is less than 1.[address] segment depression noted from the baseline EKG. The EKG portion of the Lexiscan is nondiagnostic. Cardiac Stress and Resting SPECT Images: Cardiac Stress and Resting SPECT images were obtained using technetium 99m Myoview 28.5 mCi stress and 9.76 mCi at rest. Gated SPECT for analysis of segmental wall motion and calculation of the ejection fraction also done. Cardiac stress and rest SPECT images show uniform myocardial activity without segmental perfusion abnormality, computer derived ejection fraction is 63% with no regional wall motion abnormality, right ventricle is normal size and contractility. Conclusion: 1. The EKG portion of the Lexiscan is nondiagnostic. 2. No scintigraphic evidence of reversible ischemia seen, computer derived ejection fraction is 63% with no regional wall motion abnormality, right ventricle is normal size and contractility. 3. Normal Lexiscan Myoview study. Electronically signed by : Mat Wei, 05/05/2020 22:14:29
--- NOTE | 2020-05-05 09:35 | HMH.ITSHM ---
Current Home Medications as stated by this patient Chandni Morales or architectural representative. []LISINOPRIL LEVOTHYROXINE CARVEDILOL BUPROPION ASA TOPIRAMATE ROPINIROLE OXYBUTYNIN MONTELUKAST METOCLOPRAMIDE FEXOFENADINE CITALOPRAM
== END ==
LOC: RAD 07:19
PROVIDERS: PCP Internal Medicine Adolescent Medicine; Visit Provider Internal Medicine Adolescent Medicine
DX: I20.8 Other forms of angina pectoris (principal)
CPT/HCPCS: 78452; 93017; A9502; J2785

== ENCOUNTER → 2020-05-10 09:08 | Outpatient (CLI) | payer BC, SELFPAY ==
[2020-05-10 09:45] LABS: HCG Qualitative, Serum Negative (Negative)
[2020-05-10 10:00] LABS: Coronavirus 19 IgG Antibody Negative (Negative); Coronavirus 19 IgM Antibody Negative (Negative)
== END ==
PROVIDERS: Visit Provider Internal Medicine Gastroenterology
DX: Z01.818 Encounter for other preprocedural examination (principal); Z20.822 Contact with and (suspected) exposure to COVID-19; Z13.810 Encounter for screening for upper gastrointestinal disorder
CPT/HCPCS: 36415; 84703; 86328

== ENCOUNTER 2020-05-12 08:00 | Day surgery (SDC) | payer BC, SELFPAY ==
[2020-05-09 12:35] VITALS: BMI 49.2
[2020-05-12] VITALS (7 sets, daily range): BP systolic 121–150; BP diastolic 51–107; PULSE 82–101; RESP 18–19; TEMP 36.4–36.7; O2SAT 95–99
--- NOTE | 2020-05-12 09:16 | P.PN_ITS ---
[facility] Anesthesia Checklist - Patient Identification Patient Identification: Arm Band - Structural Data Admitted From: Home Planned Operative Procedure/s: egd Consent for Planned Operative Procedure(s) Verified: Yes Verified Documents: Surgical Consent, History and Physical - NPO Status Verified Time NPO: 00:00 - Additional verifications Anesthesia Reactions: No - Airway Assessment C-Spine Mobility Assessed: Yes (mp2) TMJ Mobility Assessed: Yes Dentition: Good Dentition - Neurological Assessment Level of Consciousness: Awake, Alert - Anesthesia Plan Anesthesia Risk discussed: Yes Anesthesia Plan: Verified ASA Class: III Anesthesia Type: MAC [facility] History I have reviewed the patient's past medical history: Yes Medical History: Reports:: Anxiety, Asthma, Congenital Heart Disease, Depression, Gastroesophageal Reflux Disease(GERD), Hypertension, Migraine Denies:: Cancer, Diabetes Mellitus Type 1, Diabetes Mellitus Type 2, Internal Pacemaker, MRSA, Seizures *Have you ever received a pneumonia vaccine?: No *Have you received a flu vaccine this season?: No Other Medical History: Reports: Hypothyroidism, Sinus Problems, Thyroid Disease Anesthesia experience/problems:: nac Laterality Cases: Bilateral: Other Other Surgeries: Yes: Cholecystectomy, Thyroidectomy, Tubal Ligation. No: Pacemaker Amputation: No Fractures: No - *Social History Smoking Status: Never smoker Alcohol Intake: current Alcohol Intake Frequency:: holidays/special occasions only Substance Use Type: denies use *Occupational Status:: unemployed Housing: house Household Members: spouse *Travel in the last 8 weeks: None - Psychiatric History Pschychiatric History:: Reports:: Depression Family Hx:: Hypertension, Hyperlipidemia, Cancer
--- NOTE | 2020-05-12 09:25 | HMH.PROC ---
[facility] Procedure Note Procedure Note:: Upper Endoscopy Procedure Report: Esophagogastroduodenoscopy with cold biopsies and TTS balloon dilation Endoscopost: Joel Carrion II, MD Referring Physician: Rodrigue Lanier MD Date of Procedure: May 12, 2020 Equipment: Olympus GIF 180 standard upper endoscope Sedation: MAC sedation Indications: Mrs. Morales is a 50-year-old female who is here for diagnostic endoscopy because of pyrosis. She reports burning across the chest. She states that this may occur even with the slightest exertion. She reports some dyspnea. Her cardiac stress test was reportedly normal. The patient reports no reflux, bloating or belching. She does have some mild intermittent dysphagia and occasionally nausea. She also reports some sharp epigastric pain that occurs 2 or 3 times monthly. She had cholecystectomy 8 years ago for what sounds like a nonfunctioning gallbladder. The patient also had seen our office previously because of anemia and some dysphagia. She had a barium swallow in August 2016 that showed some mild cervical esophageal deviation but was otherwise normal. Procedure: Prior to the procedure, a history and physical exam was performed, and patient's medications and allergies were reviewed. The risks, benefits and alternatives of the sedation and procedure were discussed with the patient. All questions were answered and informed consent was obtained. The patient was brought to the procedure room. Patient identification and proposed procedure were verified by the physician and the nurse. The patient was placed in a left lateral decubitus position and the scope was passed under direct vision. Throughout the procedure, the patient's blood pressure, pulse, and oxygen saturations were monitored continuously. The upper GI endoscopy was accomplished without difficulty. The patient tolerated the procedure well. Findings: The scope was passed directly into the upper esophagus and advanced to the third portion of the duodenum. The post bulbar duodenum and duodenal bulb were normal with normal mucosa and conniventes. The scope was withdrawn through a normal duodenal bulb and pylorus into the stomach. There was evidence of linear reactive gastropathy of the antrum and body of the stomach. The remainder of the fundus of the stomach was grossly normal. Upon retroflexion there was a small 2 cm sliding hiatal hernia. 2 biopsies were taken in the antrum and along the lesser curvature for histology to rule out gastritis and/or H pylori. The scope was then withdrawn into the esophagus. There was a serrated Z-line. Biopsies were taken from the GE junction. There were tertiary contractions and evidence of mild esophageal dysmotility. The entire esophagus was dilated to 60 Persian/20 mm with a TTS hydrostatic balloon. There was mild resistance at the cricopharyngeus. The remainder of the esophageal mucosa was normal. Impression: 1. Nonerosive GERD with mild esophageal dysmotility and small sliding (2 cm) hiatal hernia 2. Linear reactive gastropathy Plan: It is difficult to say whether her burning chest pain is esophageal chest pain. This is by her report mostly exertional and reportedly negative cardiac stress test. She does have some family history of cardiac disease. I would consider 3-month trial of PPI therapy (omeprazole). I do feel that she has some functional GERD and intermittent functional dyspepsia. Based upon this, this could be esophageal dyskinesia or esophageal hypersensitivity. If this persists, I would consider Hernandez esophageal pH monitoring with impedance.
== END 2020-05-12 10:40 | disposition home or self-care (01) ==
LOC: OUTP 08:02
PROVIDERS: PCP Internal Medicine Adolescent Medicine; Visit Provider Internal Medicine Gastroenterology
PROC: 0DJ08ZZ Inspection of Upper Intestinal Tract, Via Natural or Artificial Opening Endoscopic (ICD-10-PCS; CPT 43235; principal; 2020-05-12 09:30)
DX: K21.9 Gastro-esophageal reflux disease without esophagitis; K22.4 Dyskinesia of esophagus; K44.9 Diaphragmatic hernia without obstruction or gangrene; K31.9 Disease of stomach and duodenum, unspecified; I10 Essential (primary) hypertension; J45.909 Unspecified asthma, uncomplicated; Q24.9 Congenital malformation of heart, unspecified; F41.9 Anxiety disorder, unspecified; F32.9 Major depressive disorder, single episode, unspecified; E89.0 Postprocedural hypothyroidism
CPT/HCPCS: 43239; 43249; C1726

== ENCOUNTER → 2020-05-17 09:00 | Outpatient (CLI) | payer BC, SELFPAY ==
[2020-05-17 09:18] LABS: Basophils # 0.1 K/mm3 (0-0.2); Basophils % 0.8 % (0.1-2.0); Eosinophils # 0.1 K/mm3 (0.0-0.4); Eosinophils % 1.8 % (0.1-12.0); Hematocrit 41.5 % (37.0-47.0); Hemoglobin 12.4 g/dL (12.2-16.2); Lymphocytes # 1.7 K/mm3 (0.7-4.5); Lymphocytes % 22.5 % (10-50); Mean Corpuscular HGB Conc 29.9 g/dL (31.8-35.4); Mean Corpuscular Hemoglobin 25.6 pg (27.0-31.2); Mean Corpuscular Volume 85.5 fl (81-99); Mean Platelet Volume 8.6 fl (7.4-10.4); Monocytes # 0.4 K/mm3 (0.1-1.0); Monocytes % 5.2 % (1.7-9.3); Neutrophils # 5.3 K/mm3 (1.8-7.8); Neutrophils % 69.6 % (37.0-80.0); Platelet Count 329 K/mm3 (142-424); Red Blood Count 4.86 M/mm3 (4.20-5.40); White Blood Count 7.7 K/mm3 (4.8-10.8)
[2020-05-17 10:31] LABS: Chloride 104 mmol/L (98-107); Potassium 4.5 mmoL/L (3.5-5.1); Sodium 139 mmol/L (136-145)
[2020-05-17 10:34] LABS: Anion Gap 10.5 mEq/L (5-15); Blood Urea Nitrogen 18 mg/dl (7-17); Carbon Dioxide 29 mmol/L (22.0-30.0); Estimated Glomerular Filt Rate 67 ml/min (>60); GFR (African American) 81 ML/MIN (>60); Glucose 107 mg/dl (74-100)
[2020-05-17 10:49] LABS: Troponin I < 0.01 ng/ml (0.00-0.034)
[2020-05-17 13:20] LABS: Coronavirus 19 IgG Antibody Negative (Negative); Coronavirus 19 IgM Antibody Negative (Negative)
== END ==
PROVIDERS: Urology; Visit Provider Internal Medicine
DX: Z01.818 Encounter for other preprocedural examination (principal); Z20.822 Contact with and (suspected) exposure to COVID-19; R07.9 Chest pain, unspecified; R06.00 Dyspnea, unspecified; I10 Essential (primary) hypertension
CPT/HCPCS: 36415; 80048; 84484; 85025; 86328

== ENCOUNTER 2020-05-19 07:12 | Day surgery (SDC) | payer BC, SELFPAY ==
[2020-05-19] VITALS (14 sets, daily range): BP systolic 122–175; BP diastolic 71–106; PULSE 85–96; RESP 16–18; TEMP 37.4; O2SAT 89–97; BMI 50.3
--- NOTE | 2020-05-19 07:13 | IR_ITS ---
APPROVED REPORT Patient Location: Outpatient Automation Specialist: RADHA Morales RT (R) PROCEDURES Left heart catheterization Left ventriculogram Selective coronary angiogram Drug-eluting stent deployment to the ostial proximal LAD INDICATION Recalcitrant angina pectoris, Coronary disease Informed consent was obtained prior to the procedure. COMPLICATIONS None Estimated Blood Loss: Less than 10 ML TECHNIQUE One percent lidocaine used to anesthetize the right anterior aspect of the wrist. The right radial artery was accessed via the Seldinger technique. A 6 Sudanese sheath was placed in the right radial artery. 2.5 mg of verapamil, 800 mcg of nitroglycerin, 1mg Lidocaine and 5000 U Heparin were given through the arterial sheath. The trap catheter and 4 Sudanese JL 3.5 catheter were used to perform left heart catheterization, left ventriculogram and selective coronary angiogram. At the end of the diagnostic angiogram therapeutic heparin was administered and a 6 Sudanese JL 3 guide catheter was placed in the left main artery. A Choice PT extra-support wire was placed distally in the LAD and a 2.75 x 12 mm Xience stent was deployed at 24 rochelle in the ostial proximal LAD reducing the severe stenosis to 0%. PEEWEE-3 flow was present before and after the procedure. After achieving excellent angiographic results the apparatus was removed the sheath was removed good hemostasis was achieved using TR banding patient was transferred to the postop holding area stable ANGIOGRAPHIC RESULTS The left main artery Normal The left anterior descending artery Is an ostial proximal 80% stenosis followed by an additional long tubular 30% stenosis The circumflex artery Nondominant yet still large with a proximal smooth 20 to 30% stenosis The right coronary artery Is a dominant vessel and has a distal concentric smooth 30% stenosis The CASEY ventriculogram reveals Hyperdynamic 70% The left ventricular end-diastolic pressure Severely elevated at 40 mmHg IMPRESSION Severe ostial proximal LAD disease as described above Successful stent to the ostial proximal LAD severe disease reduced to 0% with 1 drug-eluting stent Persistent mild to moderate coronary artery disease in the proximal LAD circumflex artery and right coronary artery as described above Hyperdynamic ventricle consistent with hypertensive heart disease with diastolic dysfunction Severely elevated LVEDP consistent with severe diastolic dysfunction PLAN 1. Brilinta and aspirin 2. Aggressive risk factor modification with goal LDL less than 55 3. Patient will benefit from diuretics to decrease EDP 4. Patient has very aggressive coronary artery disease in which she went from normal coronary arteries to severe disease with multivessel involvement in less than 3 years. 5. Cardiac rehabilitation 6. Avoidance of all tobacco products Electronically signed by : Ethan Abdi, 05/19/2020 11:39:22
--- NOTE | 2020-05-19 07:25 | CA_ITS ---
APPROVED REPORT EXAM: Comprehensive 2D, Doppler, and color-flow Echocardiogram Nutrition And Dietetics Instructor: Erin Cohen RT(R) Ht: 5 ft 3 in Wt: 284lbs BSA: 2.24 BP: 163/91 mmHg Indications: CP, fatigue, BUI, obesity, HTN, edema, angina, DD, GERD, migraine 2D Dimensions LVOT 2.16 cm (M/F) 1.5-2.5 M-Mode Dimensions RVDd 2.62 cm (0.9-2.6) LA Diam 3.89 cm (1.9-4.0) LVDd 4.53 cm (3.5-5.7) Ao Diam 2.21 cm (2.0-3.7) LVDs 3.38 cm (3.5-5.7) IVSd 0.91 cm (0.6-1.1) PWd 0.78 cm (0.6-1.1) EF (Teich) 50.20% FS 25.40% EDV (Teich) 93.90 mL ESV (Teich) 46.80 mL LV Diastology E Decel Time 157.00 (160-240 msec) E/A Ratio 1.0 MED E' 10.20 (< 7 cm/sec) E'/MED E' Ratio 8.16 (>14) LAT E' 10.90 (<10 cm/sec) E/LAT E' Ratio 7.63 (>14) Mitral Valve MV E Max Mahad. 83.00 (40-130 cm/s) MV A Velocity 84.00 (40-130 cm/s) E/A Ratio 1.00 MV Decel. Time 157.00 (160-240 ms) MV PHT 46.00 ms Left Ventricle Left atrium is mildly enlarged, left ventricle is normal size, mild concentric left ventricular hypertrophy, visually estimated ejection fraction 55% with no regional wall motion abnormality, diastolic parameters are inconclusive. Right Ventricle Right atrium and right ventricle are mildly enlarged with normal contractility. Aortic Valve Aortic valve is minimally thickened and fibrosed, there is no aortic stenosis or aortic insufficiency. Mitral Valve Mitral valve is grossly normal, there is no mitral stenosis, there is trace mitral regurgitation. Tricuspid Valve Tricuspid valve grossly normal, there is trace tricuspid regurgitation, tricuspid regurgitation jet velocity is inadequate for calculation of the right ventricular systolic pressure. Pulmonic Valve Pulmonic valve is poorly visualized. Great Vessels Aortic root is normal size. Pericardium No significant pericardial effusion noted. Conclusion 1. Mild biatrial enlargement, normal left ventricular size, mild concentric left ventricular hypertrophy, visually estimated ejection fraction 55% with no regional wall motion abnormality, diastolic parameters are inconclusive. 2. Mildly enlarged right ventricle with normal contractility. 3. Trace mitral and tricuspid regurgitation. 4. No significant pericardial effusion noted. Electronically signed by : Mat Wei, 05/19/2020 12:26:41
--- NOTE | 2020-05-19 13:45 | HMH.PHACLD ---
Chandni Morales has received discharge medication counseling on the following medications: MD STARTING PATIENT WITH LISINOPRIL HCTZ 20 MG/12.5 MG DAILY, BISOPROLOL 5 MG DAILY, BRILINTA 90 MG BID, AND LIPITOR 40 MG DAILY. PATIENT IS CURRENTLY ALSO TAKING ASPIRIN [address] DAILY.
[2020-05-19 14:19] LABS: CATHL Activated Clotting Time 393 SEC (74-125)
== END 2020-05-19 15:05 | disposition home or self-care (01) ==
LOC: CATHLAB 07:13
PROVIDERS: PCP Internal Medicine Adolescent Medicine; Visit Provider Internal Medicine
DX: R07.9 Chest pain, unspecified (principal); I11.0 Hypertensive heart disease with heart failure; I25.118 Atherosclerotic heart disease of native coronary artery with other forms of angina pectoris; I50.30 Unspecified diastolic (congestive) heart failure; Z88.0 Allergy status to penicillin; E03.9 Hypothyroidism, unspecified; Z88.2 Allergy status to sulfonamides; Z88.7 Allergy status to serum and vaccine
CPT/HCPCS: 85347; 92928; 93306; 93458; 99152; 99153; C1725; C1769; C1875; C9600; J1644; Q9967

== ENCOUNTER → 2020-05-30 10:03 | Outpatient (CLI) | payer BC, SELFPAY ==
[2020-05-30 10:38] LABS: Basophils # 0.1 K/mm3 (0-0.2); Basophils % 1.1 % (0.1-2.0); Eosinophils # 0.2 K/mm3 (0.0-0.4); Eosinophils % 2.2 % (0.1-12.0); Hematocrit 41.1 % (37.0-47.0); Hemoglobin 12.6 g/dL (12.2-16.2); Lymphocytes # 2.3 K/mm3 (0.7-4.5); Lymphocytes % 22.8 % (10-50); Mean Corpuscular HGB Conc 30.8 g/dL (31.8-35.4); Mean Corpuscular Hemoglobin 25.5 pg (27.0-31.2); Mean Platelet Volume 7.2 fl (7.4-10.4); Monocytes # 0.5 K/mm3 (0.1-1.0); Monocytes % 4.4 % (1.7-9.3); Neutrophils # 7.1 K/mm3 (1.8-7.8); Neutrophils % 69.5 % (37.0-80.0); Platelet Count 384 K/mm3 (142-424); Red Blood Count 4.95 M/mm3 (4.20-5.40); Red Cell Distribution Width 15.4 % (11.5-17.5); White Blood Count 10.2 K/mm3 (4.8-10.8)
[2020-05-30 11:42] LABS: Alanine Aminotransferase 25 U/L (12-78); Albumin Level 4.6 g/dl (3.5-5.0); Alkaline Phosphatase 143 U/L (38-126); Aspartate Amino Transferase 23 U/L (14-36); Bilirubin,Indirect 0.6 mg/dL (0.0-0.9); Bilirubin,Total 0.6 mg/dl (0.2-1.3); Bilirubin,Unconjugated 0.6 mg/dL (0.0-1.1); Chol/HDL Ratio 4.1 (1-3.5); Cholesterol 192 mg/dl (140-200); HDL Cholesterol 47 mg/dl (40-60); Total Protein,Serum 8.2 g/dl (6.3-8.2); Triglycerides 270 mg/dl (30-150); VLDL Cholesterol 54 mg/dL (0-40)
[2020-05-30 11:43] LABS: Alanine Aminotransferase 24 U/L (12-78); Albumin Level 4.5 g/dl (3.5-5.0); Albumin/Globulin Ratio 1.3 (1.1-1.8); Alkaline Phosphatase 144 U/L (38-126); Aspartate Amino Transferase 23 U/L (14-36); Bilirubin,Total 0.6 mg/dl (0.2-1.3); Blood Urea Nitrogen 34 mg/dl (7-17); Calcium 10.4 mg/dl (8.4-10.2); Carbon Dioxide 24 mmol/L (22.0-30.0); Chloride 107 mmol/L (98-107); Estimated Glomerular Filt Rate 34 ml/min (>60); GFR (African American) 41 ML/MIN (>60); Globulin 3.6 g/dL (1.3-3.2); Glucose 108 mg/dl (74-100); Sodium 142 mmol/L (136-145); Total Protein,Serum 8.1 g/dl (6.3-8.2)
[2020-05-30 11:54] LABS: Direct LDL Cholesterol 86.02 mg/dL (100-129)
[2020-05-30 12:13] LABS: Thyroid Stimulating Hormone 0.05 uIU/mL (0.465-4.68)
== END ==
PROVIDERS: Physician Assistant; Visit Provider Internal Medicine Adolescent Medicine
DX: I25.10 Atherosclerotic heart disease of native coronary artery without angina pectoris (principal); E78.2 Mixed hyperlipidemia; Z79.899 Other long term (current) drug therapy
CPT/HCPCS: 36415; 80053; 80061; 80076; 84443; 85025

== ENCOUNTER 2020-06-07 10:48 | Emergency (ER) | payer BC, SELFPAY ==
[2020-06-07 11:02] VITALS: BP 103/57; PULSE 64; RESP 16; TEMP 36.6; O2SAT 97; BMI 48.6
--- NOTE | 2020-06-07 11:25 | HMH.EDUTC ---
[facility] Disposition Clinical Impression: Muscle pain Disposition: Home, Self-Care Condition on Discharge: Good Instructions: DI for Muscle Strain Additional Instructions: tylenol as needed for pain steroids as needed follow up with pcp warm tub baths muscle cream if symptoms worsen or do not improve return or be seen in ed Prescriptions: Diclofenac Sodium [Voltaren Arthritis Pain] 20 gm TP BID 14 Days #1 tube Transmission Status: Received by [id number] Referrals: Rodrigue Lanier MD [Primary Care Provider] - Time of Disposition: 11:54 Medical Decision Making - Brad Inquiry Pt receiving controlled substance: No Vital Signs: 06/07/20 11:02 Temperature 98 F Temperature Source Oral Pulse Rate [Right] 64 Respiratory Rate 16 Blood Pressure [Right Arm] 103/57 L Blood Pressure Mean [Right Arm] 72 Blood Pressure Source [Right Arm] Automatic Cuff Blood Pressure Position [Right Arm] Sitting 02 Sat by Pulse Oximetry 97 Oxygen Delivery Method Room Air Orders (Tests/Meds): ED MEDICATIONS Discontinued Medications Generic Name Dose Route Start Last Admin Trade Name Freq PRN Reason Stop Dose Admin Dexamethasone Sodium Phosphate 4 mg 06/07/20 11:43 Dexamethasone 4mg/Ml 1ml Vial IM 06/07/20 11:44 ONCE ONE [facility] HPI - General Chief complaint: Urgent Treatment Center Stated complaint: lower back pain, left arm pain Time Seen by Provider: 06/07/20 11:38 Mode of Arrival: Ambulatory Source of Information: Patient Limitations: No Limitations Description of Symptoms (Recalled from Triage Doc. by RN): pt is having lower back pain and left arm pain. no injury. pt states it just feels sore and she can hardly lift her arm. pain is 6/10 HEENT Symptoms (Recalled from RN notes): No Resp Symptoms (Recalled from RN notes): No Skin Symptoms (Recalled from RN notes): No MS Symptoms (Recalled from RN notes): Yes (lower back and left arm pain) Functional Status (Recalled from RN notes): na - History of Present Illness Provider Complaint: 50 yr old female presents for lower back pain and left arm pain. no injury. pt states it just feels sore and she can hardly lift her arm. pain is 6/10. pt states tender to palpate but shoulders and pain in left elbow and wrist. pt states if she uses her left arm much it cause pain to throb. pt states decrease rom due to pain. pt denies cp or pressure. - Related Data Home Medications Medication Instructions Recorded Confirmed Montelukast Sodium [Montelukast 10 mg PO HS 07/04/17 05/26/20 10mg Tab] Oxybutynin Chloride [Oxybutynin 10 mg PO DAILY 07/04/17 05/26/20 Chloride ER] aspirin 81 mg tablet,delayed 81 mg PO DAILY 30 Days #30 09/05/17 05/26/20 release Levothyroxine Sodium 175 mcg PO DAILY 05/15/18 05/26/20 [Levothyroxine 200mcg (0.2mg) Tab] citalopram 20 mg tablet 10 mg PO DAILY tab 05/14/20 05/26/20 hydroxyzine pamoate 25 mg capsule 25 mg PO HS PRN cap 05/14/20 05/26/20 omeprazole 40 mg capsule,delayed 40 mg PO DAILY 05/14/20 05/26/20 release ropinirole 1 mg tablet 2 mg PO HS tab 05/14/20 05/26/20 topiramate 100 mg tablet 50 mg PO HS tab 05/14/20 05/26/20 Atorvastatin Calcium [Lipitor 40mg 40 mg PO DAILY 05/19/20 05/26/20 Tab] Bisoprolol Fumarate [Bisoprolol 5 mg PO DAILY 05/19/20 05/26/20 5mg Tablet] Ranolazine [Ranolazine ER] 500 mg PO BID 05/19/20 05/26/20 Ticagrelor [Brilinta 90mg 90 mg PO BID 05/19/20 05/26/20 Tablet] lisinopril 20 1 tab PO DAILY tab 05/26/20 05/26/20 mg-hydrochlorothiazide 12.5 mg tablet Previous Rx's Medication Instructions Recorded Diclofenac Sodium [Voltaren 20 gm TP BID 14 Days #1 tube 06/07/20 Arthritis Pain] Allergies Allergy/AdvReac Type Severity Reaction Status Date / Time Penicillins [PENICILLINS] Allergy Intermediate ITCHING Verified 05/26/20 08:33 morphine [MORPHINE] Allergy Mild Verified 05/26/20 08:33 Iodinated Contrast Media AdvReac Intermediate HIVES,COUGH,NAUS
--- NOTE | 2020-06-07 11:37 | ECG_ITS ---
APPROVED REPORT Exam: Resting ECG HR:66 bpm ECG Measurements Heart Rate 66 AXES UT 156 P 35 QRSd 94 QRS 95 QT 390 T 9 QTc 408 Conclusion Normal sinus rhythm Rightward axis Low voltage QRS Borderline ECG Electronically signed by : Edward Joshi, 06/08/2020 20:25:07
[2020-06-07 12:02] VITALS: BP 109/87; PULSE 61; RESP 16; TEMP 36.6
== END 2020-06-07 12:05 | disposition home or self-care (01) ==
PROVIDERS: Emergency Provider Nurse Practitioner Family; PCP Internal Medicine Adolescent Medicine
DX: M79.18 Myalgia, other site (principal); M54.5 Low back pain; I25.10 Atherosclerotic heart disease of native coronary artery without angina pectoris; I10 Essential (primary) hypertension; F41.8 Other specified anxiety disorders; K21.9 Gastro-esophageal reflux disease without esophagitis; Z79.899 Other long term (current) drug therapy; Z88.0 Allergy status to penicillin; Z88.5 Allergy status to narcotic agent
CPT/HCPCS: 93005; 93041; 96372; 99202; G0463

== ENCOUNTER 2020-07-24 10:05 | Outpatient (RCR) | payer BC, SELFPAY | END 2020-10-03 13:10 | disposition home or self-care (01) | LOC: PT 10:05 | PROVIDERS: Visit Provider Urology | DX: I25.10 Atherosclerotic heart disease of native coronary artery without angina pectoris (principal) | CPT/HCPCS: 93798 ==

== ENCOUNTER → 2020-08-09 08:15 | Outpatient (CLI) | payer BC, SELFPAY ==
[2020-08-09 08:51] LABS: Adenovirus,PCR Not Detected (NotDetected); Bordetella Pertussis Not Detected (NotDetected); Chlamydophila Pneumoniae, PCR Not Detected (NotDetected); Coronavirus 19, PCR Not Detected (NotDetected); Coronavirus 229E Not Detected (NotDetected); Coronavirus NL63 Not Detected (NotDetected); Coronavirus OC43 Not Detected (NotDetected); Coronovirus HKU1,PCR Not Detected (NotDetected); Human Metapneumovirus Not Detected (NotDetected); Influenza A, PCR Not Detected (NotDetected); Influenza AH1, 2009 Not Detected (NotDetected); Influenza AH1, PCR Not Detected (NotDetected); Influenza AH3,PCR Not Detected (NotDetected); Influenza B, PCR Not Detected (NotDetected); Mycoplasma Pneumoniae, PCR Not Detected (NotDetected); Parainfluenza 1, PCR Not Detected (NotDetected); Parainfluenza 2, PCR Not Detected (NotDetected); Parainfluenza 3, PCR Not Detected (NotDetected); Parainfluenza 4, PCR Not Detected (NotDetected); Respiratory Syncytial Virus Not Detected (NotDetected); Rhinovirus/Enterovirus Not Detected (NotDetected)
== END ==
PROVIDERS: PCP Internal Medicine Adolescent Medicine; Visit Provider Internal Medicine Adolescent Medicine
DX: Z11.52 Encounter for screening for COVID-19 (principal); R05 Cough
CPT/HCPCS: 87581; 87633; 87798

== ENCOUNTER → 2020-08-18 17:01 | Outpatient (CLI) | payer BC, SELFPAY ==
--- NOTE | 2020-08-18 17:16 | XR_ITS ---
PROCEDURE: XR SHOULDER LT MIN 2V CLINICAL INDICATION: LEFT ANTERIOR SHOULDER PAIN COMPARISON: No exams were available for comparison FINDINGS: No fracture or dislocation. No lytic or blastic change. There is normal mineralization. The joint spaces are well-preserved. No significant degenerative/arthritic changes. No erosive changes evident. Other findings:None. IMPRESSION: Negative left shoulder Dictated by: Raffaele Membreno MD 08/19/2020 13:00 Raffaele Membreno MD in [place] 08/19/2020 13:00
== END ==
PROVIDERS: PCP Internal Medicine Adolescent Medicine; Visit Provider Internal Medicine Adolescent Medicine
DX: M25.512 Pain in left shoulder (principal)
CPT/HCPCS: 73030

== ENCOUNTER 2020-08-19 14:14 | Emergency (ER) | payer BC, SELFPAY ==
[2020-08-19 14:15] VITALS: BP 140/91; PULSE 79; RESP 18; TEMP 37.1; O2SAT 98; BMI 46.4
[2020-08-19 14:39] LABS: UTC Strep Screen (Rapid) Negative (Negative)
--- NOTE | 2020-08-19 14:42 | HMH.EDUTC ---
[facility] Disposition Clinical Impression: Sore throat (viral) Disposition: Home, Self-Care Condition on Discharge: Good Instructions: Sore Throat, DI for Cough -- Adult Additional Instructions: *Monitor Temp, Over the counter Motrin or Tylenol as directed/as needed Tylenol every 4 hours and Motrin every 6 hours (as long as your family doctor has told you that you can take it) for fever or pain. and straight to ER if unable to lower temp less than 101.0 after medication given *Warm salt water gargles may help to soothe the throat *Throat Lozenges *Warm fluids like tea with honey may help to soothe the throat *Sleep elevated *Humidifier/Vaporizer Your throat swab was sent for culture. Those results are typically sent to your primary care. Be sure to follow up in 2-3 days with your family doctor/primary care physician if no improvement so they can review those result and treat if necessary. If you don?t have a primary care doctor, I recommend you get one but in the mean time, you will have to return to a walk in clinic Follow up IMMEDIATELY for new or worsening symptoms or no Noticeable improvement over the next 48-72 hours. 911 for difficulty breathing or swallowing Prescriptions: Benzonatate [Tessalon Perle 100mg Cap*] 100 mg PO TID PRN #15 cap PRN Reason: Cough Transmission Status: Pending to [id number] Referrals: Edward Joshi MD [Primary Care Provider] - As needed Medical Decision Making - Brad Inquiry Pt receiving controlled substance: No Brad was queried for this patient: No Vital Signs: 08/19/20 14:15 Temperature 98.7 F Temperature Source Oral Pulse Rate [Right Brachial] 79 Respiratory Rate 18 Blood Pressure [Right Arm] 140/91 H Blood Pressure Mean [Right Arm] 107 Blood Pressure Source [Right Arm] Automatic Cuff Blood Pressure Position [Right Arm] Sitting 02 Sat by Pulse Oximetry 98 Oxygen Delivery Method Room Air - Lab Data Lab results reviewed: Yes: I reviewed the patient's lab results. Lab Results 08/19/20 14:16: Strep Scn Rapid Clinic Negative Orders (Tests/Meds): ORDERS Category Date Time Status Strep Screen Confirmation Stat Micro 08/19/20 14:16 Received [facility] [place] HPI - General Stated complaint: sore throat Time Seen by Provider: 08/19/20 14:42 Mode of Arrival: Ambulatory Source of Information: Patient Limitations: No Limitations Description of Symptoms (Recalled from Triage Doc. by RN): PATIENT C/O SORE THROAT AND COUGH SINCE YESTERDAY HEENT Symptoms (Recalled from RN notes): Yes Resp Symptoms (Recalled from RN notes): Yes Skin Symptoms (Recalled from RN notes): No MS Symptoms (Recalled from RN notes): No Functional Status (Recalled from RN notes): WNL - History of Present Illness Provider Complaint: Patient states that she started having sore throat last night and has had a nagging cough on and off State that had something similar last week but got better State that she was worried that she may have strep throat so she came in to get checked Denies fever - Related Data Home Medications Medication Instructions Recorded Confirmed Montelukast Sodium [Montelukast 10 mg PO HS 07/04/17 05/26/20 10mg Tab] Oxybutynin Chloride [Oxybutynin 10 mg PO DAILY 07/04/17 05/26/20 Chloride ER] aspirin 81 mg tablet,delayed 81 mg PO DAILY 30 Days #30 09/05/17 05/26/20 release Levothyroxine Sodium 175 mcg PO DAILY 05/15/18 05/26/20 [Levothyroxine 200mcg (0.2mg) Tab] citalopram 20 mg tablet 10 mg PO DAILY tab 05/14/20 05/26/20 hydroxyzine pamoate 25 mg capsule 25 mg PO HS PRN cap 05/14/20 05/26/20 omeprazole 40 mg capsule,delayed 40 mg PO DAILY 05/14/20 05/26/20 release ropinirole 1 mg tablet 2 mg PO HS tab 05/14/20 05/26/20 topiramate 100 mg tablet 50 mg PO HS tab 05/14/20 05/26/20 Atorvastatin Calcium [Lipitor 40mg 40 mg PO DAILY 05/19/20 05/26/20 Tab] Bisoprolol Fumarate [Bisoprolol 5 mg PO DAILY 05/19/20 05/26/20 5mg Tablet
[2020-08-19 14:48] VITALS: BP 140/91; PULSE 79; RESP 18; TEMP 37.1; O2SAT 98
== END 2020-08-19 14:50 | disposition home or self-care (01) ==
PROVIDERS: Emergency Provider Nurse Practitioner; PCP Internal Medicine Adolescent Medicine
DX: J02.8 Acute pharyngitis due to other specified organisms (principal); E03.9 Hypothyroidism, unspecified; F41.8 Other specified anxiety disorders; K21.9 Gastro-esophageal reflux disease without esophagitis; I10 Essential (primary) hypertension; G43.709 Chronic migraine without aura, not intractable, without status migrainosus; Z79.899 Other long term (current) drug therapy; Z88.0 Allergy status to penicillin; Z88.5 Allergy status to narcotic agent
CPT/HCPCS: 87880; 99202; G0463

== ENCOUNTER → 2020-08-20 19:27 | Outpatient (CLI) | payer BC, SELFPAY ==
[2020-08-21 01:49] LABS: Adenovirus,PCR Not Detected (NotDetected); Bordetella Pertussis Not Detected (NotDetected); Chlamydophila Pneumoniae, PCR Not Detected (NotDetected); Coronavirus 19, PCR Not Detected (NotDetected); Coronavirus 229E Not Detected (NotDetected); Coronavirus NL63 Not Detected (NotDetected); Coronavirus OC43 Not Detected (NotDetected); Coronovirus HKU1,PCR Not Detected (NotDetected); Human Metapneumovirus Not Detected (NotDetected); Influenza A, PCR Not Detected (NotDetected); Influenza AH1, 2009 Not Detected (NotDetected); Influenza AH1, PCR Not Detected (NotDetected); Influenza AH3,PCR Not Detected (NotDetected); Influenza B, PCR Not Detected (NotDetected); Mycoplasma Pneumoniae, PCR Not Detected (NotDetected); Parainfluenza 1, PCR Not Detected (NotDetected); Parainfluenza 2, PCR Not Detected (NotDetected); Parainfluenza 3, PCR Not Detected (NotDetected); Parainfluenza 4, PCR Not Detected (NotDetected); Respiratory Syncytial Virus Not Detected (NotDetected); Rhinovirus/Enterovirus Not Detected (NotDetected)
== END ==
PROVIDERS: Visit Provider Nurse Practitioner Family
DX: Z20.822 Contact with and (suspected) exposure to COVID-19 (principal); J02.9 Acute pharyngitis, unspecified; R05 Cough
CPT/HCPCS: 87581; 87633; 87798; U0003

== ENCOUNTER → 2020-08-26 09:26 | Outpatient (CLI) | payer BC, SELFPAY ==
--- NOTE | 2020-08-26 09:29 | XR_ITS ---
PROCEDURE: XR CHEST 2V CLINICAL HISTORY: cough, dyspnea COMPARISON: CR CXR2V XR chest 2V from 07/26/2018 CR XR CHEST 2V from 09/20/2019 CR XR CHEST 2V from 01/09/2020 FINDINGS: The cardiomediastinal silhouette and pulmonary vascularity are within normal limits. The lungs are clear without infiltrates, suspicious nodules, or pleural effusions. Mild upper thoracic curvature convex right. IMPRESSION: No acute findings. Dictated by: Raffaele Membreno MD 08/26/2020 10:15 Raffaele Membreno MD in [place] 08/26/2020 10:15
== END ==
PROVIDERS: PCP Internal Medicine Adolescent Medicine; Visit Provider Physician Assistant
DX: R05 Cough (principal); I10 Essential (primary) hypertension; I51.89 Other ill-defined heart diseases; R06.00 Dyspnea, unspecified
CPT/HCPCS: 71046

== ENCOUNTER → 2020-08-29 10:54 | Outpatient (CLI) | payer BC, SELFPAY ==
[2020-08-29 11:27] LABS: Basophils # 0.1 K/mm3 (0-0.2); Basophils % 0.7 % (0.1-2.0); Eosinophils # 0.2 K/mm3 (0.0-0.4); Eosinophils % 3.5 % (0.1-12.0); Hematocrit 40.4 % (37.0-47.0); Hemoglobin 13.3 g/dL (12.2-16.2); Lymphocytes # 1.6 K/mm3 (0.7-4.5); Lymphocytes % 23.8 % (10-50); Mean Corpuscular HGB Conc 32.8 g/dL (31.8-35.4); Mean Corpuscular Hemoglobin 27.2 pg (27.0-31.2); Mean Corpuscular Volume 82.7 fl (81-99); Mean Platelet Volume 7.7 fl (7.4-10.4); Monocytes # 0.4 K/mm3 (0.1-1.0); Monocytes % 6.3 % (1.7-9.3); Neutrophils # 4.4 K/mm3 (1.8-7.8); Neutrophils % 65.7 % (37.0-80.0); Platelet Count 329 K/mm3 (142-424); Red Blood Count 4.88 M/mm3 (4.20-5.40); Red Cell Distribution Width 14.4 % (11.5-17.5); White Blood Count 6.7 K/mm3 (4.8-10.8)
[2020-08-29 12:15] LABS: Blood Urea Nitrogen 13 mg/dl (7-17); Calcium 9.6 mg/dl (8.4-10.2); Carbon Dioxide 24 mmol/L (22.0-30.0); Chloride 103 mmol/L (98-107); Cholesterol 166 mg/dl (140-200); Estimated Glomerular Filt Rate 67 ml/min (>60); GFR (African American) 81 ML/MIN (>60); Glucose 100 mg/dl (74-100); Sodium 140 mmol/L (136-145)
== END ==
PROVIDERS: Visit Provider Internal Medicine Adolescent Medicine
DX: R05 Cough (principal); I10 Essential (primary) hypertension
CPT/HCPCS: 36415; 80048; 82465; 85025

== ENCOUNTER → 2020-09-02 11:28 | Outpatient (CLI) | payer BC, SELFPAY | PROVIDERS: PCP Internal Medicine Adolescent Medicine; Visit Provider Internal Medicine Adolescent Medicine | DX: Z20.822 Contact with and (suspected) exposure to COVID-19 (principal); U07.1 COVID-19 | CPT/HCPCS: U0003 ==

== ENCOUNTER → 2020-09-06 07:53 | Outpatient (CLI) | payer BC, SELFPAY ==
[2020-09-06] VITALS (10 sets, daily range): BP systolic 101–119; BP diastolic 50–71; PULSE 65–82; RESP 15–18; TEMP 36.8–36.9; O2SAT 95–98
== END ==
PROVIDERS: PCP Internal Medicine Adolescent Medicine; Visit Provider Internal Medicine Adolescent Medicine
DX: U07.1 COVID-19 (principal)
CPT/HCPCS: 96365

== ENCOUNTER 2020-10-26 18:58 | Emergency (ER) | payer BC, SELFPAY ==
--- NOTE | 2020-10-26 19:50 | HMH.EDUTC ---
[facility] [place] Impression: Right knee pain Qualifiers: Chronicity: acute Qualified Code(s): M25.561 - Pain in right knee Disposition: Home, Self-Care Condition on Discharge: Good Instructions: How to Use Crutches, DI for Knee Pain, How to Use a Knee Immobilizer Additional Instructions: Rest the extremity, apply ice for 15 minutes as tolerated three or four times per day, Elevate the extremity as tolerated while you are resting. Follow up with Dr. Hawkins (orthopedics). I put in a referral but you need to call his office and schedule an appointment. Follow up with your regular doctor. GO TO THE ER FOR ANY WORSENING SYMPTOMS Prescriptions: methylPREDNISolone [Medrol] 4 mg PO DIRECTED 6 Days #21 tab.ds.pk Transmission Status: Received by [id number] Referrals: Rodrigue Lanier MD [Primary Care Provider] - Wayne Hawkins MD [Staff Physician] - Time of Disposition: 20:49 Medical Decision Making - Medical Records Medical records reviewed: No: I reviewed the patient's medical records. - Brad Inquiry Pt receiving controlled substance: No Vital Signs: 10/26/20 20:06 10/26/20 21:06 Temperature 98.2 F 98 F Temperature Source Oral Pulse Rate 71 Pulse Rate [Left] 71 Respiratory Rate 16 16 Blood Pressure 126/65 Blood Pressure [Right Arm] 121/58 L Blood Pressure Mean [Right Arm] 79 02 Sat by Pulse Oximetry 100 Orders (Tests/Meds): ED MEDICATIONS Discontinued Medications Generic Name Dose Route Start Last Admin Trade Name Freq PRN Reason Stop Dose Admin Ketorolac Tromethamine 60 mg 10/26/20 20:28 10/26/20 20:37 Ketorolac 60mg/2ml Vial IM 10/26/20 20:29 60 mg ONCE ONE Administration Methylprednisolone Sodium Succinate 125 mg 10/26/20 20:28 10/26/20 20:37 Methylprednisolone Sod Succ 125mg Vial IM 10/26/20 20:29 125 mg ONCE ONE Administration - Radiology Data #1 Image(s): Knee Image Reviewed: Yes I reviewed the patient's radiology image, Yes I have reviewed radiologist's interpretation Preliminary Findings: Normal/NAD, No Fracture Seen PROCEDURE INFORMATION: Exam: XR Right Knee Exam date and time: 10/26/2020 7:52 PM Age: 50 years old Clinical indication: Injury or trauma; Fall; Blunt trauma; Injury details: Patient fell onto right knee yesterday. ; Additional info: Fall, knee pain TECHNIQUE: Imaging protocol: XR Right knee. Views: 3 views. COMPARISON: US VARPH ARTERIAL/[id number] 12/15/2016 1:38 PM FINDINGS: Bones/joints: Normal. Soft tissues: Normal. IMPRESSION: No acute findings. [facility] [place] - General Stated complaint: AO 10/26 899 injured R knee Time Seen by Provider: 10/26/20 20:23 - History of Present Illness Provider Complaint: She states that she has been having worsening right knee pain and stiffness since yesterday. 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 She denies any fall or known injury. - Related Data Home Medications Medication Instructions Recorded Confirmed Montelukast Sodium [Montelukast 10 mg PO HS 07/04/17 08/26/20 10mg Tab] aspirin 81 mg tablet,delayed 81 mg PO DAILY 30 Days #30 09/05/17 08/26/20 release Levothyroxine Sodium 175 mcg PO DAILY 05/15/18 08/26/20 [Levothyroxine 200mcg (0.2mg) Tab] citalopram 20 mg tablet 10 mg PO DAILY tab 05/14/20 08/26/20 hydroxyzine pamoate 25 mg capsule 25 mg PO HS PRN cap 05/14/20 08/26/20 ropinirole 1 mg tablet 2 mg PO HS tab 05/14/20 08/26/20 topiramate 100 mg tablet 50 mg PO HS tab 05/14/20 08/26/20 Atorvastatin Calcium [Lipitor 40mg 40 mg PO DAILY 05/19/20 08/26/20 Tab] Bisoprolol Fumarate [Bisoprolol 5 mg PO DAILY 05/19/20 08/26/20 5mg Tablet] bupropion HCl 150 mg 24 hr tablet, ea PO 08/20/20 08/26/20 extended release Previous Rx's Medication Instruct
[2020-10-26 20:06] VITALS: BP 121/58; PULSE 71; RESP 16; TEMP 36.8; O2SAT 100; BMI 45.5
[2020-10-26 21:06] VITALS: BP 126/65; PULSE 71; RESP 16; TEMP 36.6
== END 2020-10-26 21:08 | disposition home or self-care (01) ==
PROVIDERS: Emergency Provider Nurse Practitioner Family; PCP Internal Medicine Adolescent Medicine
DX: M25.561 Pain in right knee (principal); X50.3XXA Overexertion from repetitive movements, initial encounter; Y92.89 Other specified places as the place of occurrence of the external cause; F41.8 Other specified anxiety disorders; K21.9 Gastro-esophageal reflux disease without esophagitis; I10 Essential (primary) hypertension; E78.5 Hyperlipidemia, unspecified; G43.709 Chronic migraine without aura, not intractable, without status migrainosus; E03.9 Hypothyroidism, unspecified; Z88.0 Allergy status to penicillin; Z88.5 Allergy status to narcotic agent; Z79.899 Other long term (current) drug therapy
CPT/HCPCS: 29505; 73562; 96372; 99202; G0463

== ENCOUNTER 2021-03-04 00:40 | Observation (INO) | payer BC, SELFPAY ==
[2021-03-04] VITALS (32 sets, daily range): BP systolic 102–162; BP diastolic 52–89; PULSE 59–80; RESP 16–23; TEMP 36.5–37.2; O2SAT 92–99; BMI 46.0; BMI 46.5
--- NOTE | 2021-03-04 | IR_ITS ---
APPROVED REPORT Patient Location: Inpatient Forepart Reducer: RADHA Morales RT (R) PROCEDURES Left heart catheterization Left ventriculogram Selective coronary angiogram Drug-eluting stent deployment to the ostial proximal LAD Drug-eluting stent deployment to the left main artery extending into the circumflex artery Angioplasty to the circumflex artery INDICATION Coronary artery disease, Acute coronary syndrome Informed consent was obtained prior to the procedure. COMPLICATIONS NONE Estimated Blood Loss: LESS THAN 10 ML TECHNIQUE One percent lidocaine used to anesthetize the right anterior aspect of the wrist. The right radial artery was accessed via the Seldinger technique. A 6 [place] sheath was placed in the right radial artery. 2.5 mg of verapamil, 800 mcg of nitroglycerin, 1mg Lidocaine and 5000 U Heparin were given through the arterial sheath. The ZingCheckout one catheter was also used to perform left heart catheterization, left ventriculogram and selective coronary angiogram. At the end the diagnostic angiogram therapeutic heparin was administered giving a therapeutic ACT and the same guide catheter was placed in the left main artery. Wires were placed in the LAD and circumflex artery. A 3 mm x 15 mm resolute Rangely stent was deployed in the ostium of the LAD at 22 rochelle. 2.5 mm balloon was then used to dilate the struts in the left main artery extending into the circumflex artery. Following this a 4 mm x 18 mm resolute Rangely stent was placed in the left main artery extending into the proximal circumflex artery and deployed at 20 rochelle. A wire was then placed back into the LAD where a 3 mm x 12 mm balloon was used to open the struts. An additional 3 mm x 18 mm resolute Rangely stent was then deployed in the proximal LAD overlapping the distal aspect of the first LAD stent and deployed at 18 rochelle. The balloon was brought back and deployed at 22 to mesh the two stents. Following this a 4 mm x 12 mm noncompliant balloon was placed in the ostium of the circumflex artery and deployed at 20 rochelle to further post dilate. Excellent angiographic results were obtained. At the beginning of the procedure PEEWEE II flow was present down the LAD with PEEWEE-3 flow being present down the LAD at the end of the procedure. The left main artery and circumflex artery had PEEWEE-3 flow before and after the procedure ANGIOGRAPHIC RESULTS The left main artery Normal The left anterior descending artery Has an ostial greater than 90% stenosis which appears to represent a component of in-stent restenosis. Distal to the stent there is an additional 30 to 40% proximal LAD stenosis. The circumflex artery Is nondominant yet still large vessel and has an eccentric 50% stenosis The right coronary artery Is a codominant vessel and has proximal and mid vessel 10 to 20% stenoses with a distal 40 to 50% stenosis proximal to the origin of the PDA and posterior lateral branch The CASEY ventriculogram reveals Normal 65% The left ventricular end-diastolic pressure Severe to critically elevated at 55 mmHg IMPRESSION Coronary disease as described above Successful percutaneous revascularization of a critically diseased ostial LAD reducing the critical disease to 0%. Successful stenting of an ostial circumflex artery extending back into the left main artery reducing the stenosis to 10% Normal ejection fraction Critically elevated LVEDP PLAN 1. Dual antiplatelet therapy 2. Risk factor modification 3. Cardiac rehabilitation 4. Avoidance of tobacco products 5. Patient must have more aggressive control of her diabetes. 6. I would recommend a Myoview stress test in 6 months as well as 1 year. In this particular patient I would recommend an annual
--- NOTE | 2021-03-04 00:34 | ECG_ITS ---
APPROVED REPORT Exam: Resting ECG HR:74 bpm ECG Measurements Heart Rate 74 AXES AR 166 P 74 QRSd 88 QRS -7 QT 400 T 38 QTc 444 Conclusion Normal sinus rhythm Nonspecific ST and T wave abnormality Abnormal ECG Electronically signed by : Edward Joshi MD 03/04/2021 13:55:43
--- NOTE | 2021-03-04 00:41 | XR_ITS ---
PROCEDURE INFORMATION: Exam: XR Chest Exam date and time: 03/04/2021 12:41 AM Age: 50 years old Clinical indication: Sternal or substernal pain and left-sided; Patient HX: Chest pain midsternal to left sided. No prior SX, HX of covid TECHNIQUE: Imaging protocol: XR of the chest. Views: 1 view. COMPARISON: CR XR CHEST 2V 08/26/2020 9:32 AM FINDINGS: Lungs: Mild linear atelectasis in the bilateral infrahilar regions. No consolidation. No overt pulmonary edema. Pleural spaces: No pleural effusion. No pneumothorax. Heart/Mediastinum: Normal heart size. Bones/joints: Unremarkable. IMPRESSION: Mild infrahilar atelectasis. Otherwise unremarkable.
--- NOTE | 2021-03-04 00:43 | HMH.EDGENADL ---
ED Disposition Clinical Impression: Chest pain Qualifiers: Chest pain type: chest pain due to myocardial ischemia Ischemic chest pain type: unspecified angina pectoris type Qualified Code(s): I25.9 - Chronic ischemic heart disease, unspecified CAD (coronary artery disease) Qualifiers: Coronary Disease-Associated Artery/Lesion type: andreafski artery [place] vs. transplanted heart: andreafski heart Associated angina: with unstable angina Qualified Code(s): I25.110 - Atherosclerotic heart disease of andreafski coronary artery with unstable angina pectoris Disposition: Admitted as Observation Condition on Discharge: Fair Time of Disposition: 01:36 - Critical Care Critical Care Time: No Attestation: On , the high probability of a clinically significant, sudden or life threatening deterioration of the following system(s) required my full and direct attention, intervention and personal management. The time I documented below is in addition to time spent performing reported procedures but includes the following listed in this critical care notation. Medical Decision Making - Medical Records Medical records reviewed: Yes: I reviewed the patient's medical records. - Brad Inquiry Pt receiving controlled substance: No Vital Signs: 03/04/21 00:40 03/04/21 01:00 03/04/21 01:30 Temperature 97.7 F Temperature Source Oral Pulse Rate 67 66 Pulse Rate [Right] 69 Respiratory Rate 23 17 Blood Pressure 128/65 102/59 L Blood Pressure [Right Arm] 156/79 H Blood Pressure Mean Blood Pressure Mean [Right Arm] 104 Blood Pressure Source [Right Arm] 02 Sat by Pulse Oximetry 98 99 96 Oxygen Delivery Method Room Air Room Air Room Air 03/04/21 01:42 03/04/21 02:01 03/04/21 02:06 Temperature 97.9 F 98.0 F Temperature Source Oral Oral Pulse Rate 61 66 Pulse Rate [Right] 59 L Respiratory Rate 16 17 18 Blood Pressure 107/55 L 107/55 L Blood Pressure [Right Arm] 141/79 H Blood Pressure Mean 63 Blood Pressure Mean [Right Arm] 99 Blood Pressure Source [Right Arm] Automatic Cuff 02 Sat by Pulse Oximetry 98 96 Oxygen Delivery Method Room Air Room Air Room Air - Lab Data Lab Results 03/04/21 00:45: SARS-CoV-2 (PCR) Not detected, Influenza A Untype (PCR) Not detected, Influenza Type B (PCR) Not detected 03/04/21 00:46: WBC 11.0 H, RBC 4.87, Hgb 14.2, Hct 43.3, MCV 88.8, MCH 29.2, MCHC 32.8, RDW 13.4, Plt Count 390, MPV 7.4, Neut % (Auto) 58.2, Lymph % (Auto) 31.8, [place] % (Auto) 4.6, Eos % (Auto) 3.8, Baso % (Auto) 1.5, Neut # (Auto) 6.4, Lymph # (Auto) 3.5, [place] # (Auto) 0.5, Eos # (Auto) 0.4, Baso # (Auto) 0.2 03/04/21 00:46: Sodium 138, Potassium 3.7, Chloride 99, Carbon Dioxide 34 H, Anion Gap 8.7, BUN 19 H, Creatinine 0.80, Estimated Creat Clear 70, Estimated GFR 76, Est GFR ( Amer) 92, Glucose 123 H, Calcium 9.8, Troponin I < 0.01 Result diagrams: 03/04/21 00:46 03/04/21 00:46 Orders (Tests/Meds): ED MEDICATIONS Generic Name Dose Route Start Last Admin Trade Name Freq PRN Reason Stop Dose Admin Acetaminophen 650 mg 03/04/21 02:07 03/04/21 03:05 Acetaminophen 325mg Tab PO 04/03/21 02:06 650 mg Q4HP PRN Administration Fever or Mild Pain Hydrocodone Bitart/Acetaminophen 1 tab 03/04/21 03:40 03/04/21 03:49 Hydrocodone/Apap 5/325 Mg Tablet PO 04/03/21 03:39 1 tab Q4HP PRN Administration Moderate to Severe Pain Aspirin 81 mg 03/04/21 09:00 Aspirin Ec 81mg Tablet PO 04/03/21 08:59 DAILY SANDRO Atorvastatin Calcium 40 mg 03/04/21 21:00 Atorvastatin 40mg Tablet PO 04/03/21 20:59 HS SANDRO Bisoprolol Fumarate 5 mg 03/04/21 09:00 Bisoprolol 5mg Tablet PO 04/03/21 08:59 DAILY SANDRO Citalopram Hydrobromide 20 mg 03/04/21 09:00 Citalopram 20mg Tablet PO 04/03/21 08:59 DAILY SANDRO Clopidogrel Bisulfate 75 mg 03/04/21 09:00 Clopidogrel 75mg Tab PO 04/03/21 08:59 DAILY SANDRO Hydrochlorothiazide 12.5 mg 03/04/21 09:00 H
[2021-03-04 00:54] LABS: Basophils # 0.2 K/mm3 (0-0.2); Basophils % 1.5 % (0.1-2.0); Eosinophils # 0.4 K/mm3 (0.0-0.4); Eosinophils % 3.8 % (0.1-12.0); Hematocrit 43.3 % (37.0-47.0); Hemoglobin 14.2 g/dL (12.2-16.2); Lymphocytes # 3.5 K/mm3 (0.7-4.5); Lymphocytes % 31.8 % (10-50); Mean Corpuscular HGB Conc 32.8 g/dL (31.8-35.4); Mean Corpuscular Hemoglobin 29.2 pg (27.0-31.2); Mean Corpuscular Volume 88.8 fl (81-99); Mean Platelet Volume 7.4 fl (7.4-10.4); Monocytes # 0.5 K/mm3 (0.1-1.0); Monocytes % 4.6 % (1.7-9.3); Neutrophils # 6.4 K/mm3 (1.8-7.8); Neutrophils % 58.2 % (37.0-80.0); Platelet Count 390 K/mm3 (142-424); Red Blood Count 4.87 M/mm3 (4.20-5.40); Red Cell Distribution Width 13.4 % (11.5-17.5)
[2021-03-04 01:03] LABS: Coronavirus 19, PCR Not Detected (NotDetected); Influenza A, PCR Not Detected (NotDetected); Influenza B, PCR Not Detected (NotDetected)
[2021-03-04 01:04] LABS: Anion Gap 8.7 mEq/L (5-15); Blood Urea Nitrogen 19 mg/dl (7-17); Calcium 9.8 mg/dl (8.4-10.2); Carbon Dioxide 34 mmol/L (22.0-30.0); Chloride 99 mmol/L (98-107); Creatinine Clearance Estimated 70 mL/min (50-200); Estimated Glomerular Filt Rate 76 ml/min (>60); GFR (African American) 92 ML/MIN (>60); Glucose 123 mg/dl (74-100); Potassium 3.7 mmoL/L (3.5-5.1); Sodium 138 mmol/L (136-145)
[2021-03-04 01:16] LABS: Troponin I < 0.01 ng/ml (0.00-0.034)
--- NOTE | 2021-03-04 01:37 | ECG_ITS ---
APPROVED REPORT Exam: Resting ECG HR:59 bpm ECG Measurements Heart Rate 59 AXES IL 176 P 27 QRSd 92 QRS -1 QT 422 T 31 QTc 417 Conclusion Sinus bradycardia Cannot rule out Anterior infarct, age undetermined Abnormal ECG Electronically signed by : Edward Joshi MD 03/04/2021 13:55:36
--- NOTE | 2021-03-04 02:19 | PC.NURSE ---
patient up to floor via wheelchair @ this time.
[2021-03-04 04:01] LABS: Troponin I < 0.01 ng/ml (0.00-0.034)
--- NOTE | 2021-03-04 04:33 | PC.NURSE ---
Patient reported chest pain at 0315. Patient describes pain as same pain that brought her into ER. Dr Gonzales paged at 0320 new medication orders given. Upon reassessment pt reports relief of symptoms and is resting well.
[2021-03-04 05:38] LABS: POC Glucose,Bedside 120 (70-110)
--- NOTE | 2021-03-04 07:13 | P.CONPHA_ITS ---
[facility] [place] Pharmacy VTE Monitoring - Patient Demographics Admission date: 03/04/21 Report Date: 03/04/21 Time: 07:14 Allergies/Adverse Reactions: Patient Allergies Penicillins [PENICILLINS] Allergy (Intermediate, Verified 08/26/20 08:58) ITCHING morphine [MORPHINE] Allergy (Mild, Verified 08/26/20 08:58) Iodinated Contrast Media [Iodinated Contrast Media - Oral and] Adverse Reaction (Intermediate, Verified 08/26/20 08:58) HIVES,COUGH,NAUSEA,DIZZY - NEED TO PREMED BEFORE GIVING Height: 1.6 m Weight: 119.249 kg Patient Problems: Current Active Problems Chest pain (Acute) CAD (coronary artery disease) (Chronic) - VTE Risk Labs: VTE Related Lab Results Hgb 14.2 g/dL (12.2-16.2) 03/04/21 00:46 Hct 43.3 % (37.0-47.0) 03/04/21 00:46 Plt Count 390 K/mm3 (142-424) 03/04/21 00:46 BUN 19 mg/dl (7-17) H 03/04/21 00:46 Creatinine 0.80 mg/dl (0.52-1.04) 03/04/21 00:46 Estimated Creat Clear 70 mL/min (50-200) 03/04/21 00:46 - Prophylaxis VTE Prophylaxis Ordered?: Yes Types of VTE Prophylaxis: TEDS Knee High Location of Applied Device: Bilateral Lower Extremeties
--- NOTE | 2021-03-04 07:41 | HMH.PHAINT ---
MEDICATION RECONCILIATION COMPLETED ON PATIENT USING EXTERNAL FILL HISTORY FROM PHARMACY AND PATIENT INTERVIEW. -HESHAM MALONEY, YAMILETHD
--- NOTE | 2021-03-04 08:16 | HMH.CNCARD ---
History of Present Illness Consult date: 03/04/21 Requesting physician: Edward Joshi Consult reason: chest pain Chief complaint: chest pain Additional Medical History:: 1. Hypertension A. Echocardiogram, 04/2020, 1. Mild biatrial enlargement, normal left ventricular size, mild concentric left ventricular hypertrophy, visually estimated ejection fraction 55% with no regional wall motion abnormality, diastolic parameters are inconclusive. 2. Mildly enlarged right ventricle with normal contractility. 3. Trace mitral and tricuspid regurgitation. 4. No significant pericardial effusion noted. Electronically signed by : Mat Wei, 05/19/2020 12:26:41 2. Obesity 3. Coronary artery disease A. History of cardiac catheterization in 2018 with mild coronary artery disease B. History of normal Lexiscan Myoview 04/2020 C. Left heart catheterization, 04/2020, GALE to ostial LAD with mild to moderate CAD of all 3 coronary vessels. 4. Hyperlipidemia, on statin therapy 5. Anxiety/depression 6. Gastroesophageal reflux disease A. Delayed gastric emptying by gastric study 2018 History of present illness: 50-year-old white female with known coronary artery disease and obesity presented to the emergency department with a 3-day history of recurrent exertional chest pain that was reminiscent of her symptoms prior to cardiac catheterization and subsequent stenting in April of this year. Symptoms would resolve with rest until last evening when they continue despite rest. Patient was seen in the emergency department and given aspirin along with sublingual nitroglycerin with near resolution of symptoms. She was admitted for observation. Troponins have returned normal x2 overnight. EKG is sinus rhythm with poor R wave progression anteriorly and T wave inversion. Patient remains asymptomatic this morning. Cardiology consulted for evaluation recommendations. [facility] History Medical History: Reports:: Anxiety, Asthma, Congenital Heart Disease, Coronary Artery Disease, Depression, Gastroesophageal Reflux Disease(GERD), Hyperlipidemia, Hypertension, Migraine Denies:: Cancer, Diabetes Mellitus Type 1, Diabetes Mellitus Type 2, Internal Pacemaker, MRSA, Seizures *Have you ever received a pneumonia vaccine?: No *Have you received a flu vaccine this season?: No Other Medical History: Reports: Hypothyroidism, Sinus Problems, Thyroid Disease, Other Laterality Cases: Bilateral: Other Other Surgeries: Yes: Cardiac Catheterization, Cholecystectomy, Coronary Stent, , Thyroidectomy, Tubal Ligation. No: Pacemaker Amputation: No Fractures: No - *Social History Smoking Status: Never smoker Alcohol Intake: never Alcohol Intake Frequency:: holidays/special occasions only Substance Use Type: denies use *Occupational Status:: unemployed Housing: house Household Members: spouse *Travel in the last 8 weeks: None - Psychiatric History Pschychiatric History:: Reports:: Anxiety, Depression Family Hx:: Cancer, Diabetes, Heart Attack Meds Home Medications Medication Instructions Recorded Confirmed Type aspirin 81 mg tablet,delayed 81 mg PO DAILY 30 Days #30 09/05/17 03/04/21 History release hydroxyzine pamoate 25 mg capsule 25 mg PO BIDP PRN cap 05/14/20 03/04/21 History topiramate 100 mg tablet 100 mg PO HS tab 05/14/20 03/04/21 History Atorvastatin Calcium [Lipitor 40mg 40 mg PO DAILY 03/04/21 03/04/21 History Tab] Citalopram Hydrobromide 20 mg PO DAILY 03/04/21 03/04/21 History [Citalopram 20mg Tablet] Clopidogrel Bisulfate [Plavix] 75 mg PO DAILY 03/04/21 03/04/21 History Diclofenac Sodium [Voltaren 1 applicatio TP NEEDED PRN 03/04/21 03/04/21 History Arthritis Pain] Ferrous Sulfate 325 mg PO DAILY 03/04/21 03/04/21 History Fexofenadine HCl [Allergy Relief] 180 mg PO DAILY 03/04/21 03/04/21 History Levothyroxine Sodium [Euthyrox] 175 mcg PO DAILY 03/04/21 03/04/21 History Ropinirole HCl 2 mg PO HS 03/04/21 12
[2021-03-04 09:01] LABS: Anion Gap 3.5 mEq/L (5-15); Blood Urea Nitrogen 18 mg/dl (7-17); Calcium 8.9 mg/dl (8.4-10.2); Carbon Dioxide 35 mmol/L (22.0-30.0); Chloride 102 mmol/L (98-107); Creatinine Clearance Estimated 77 mL/min (50-200); Estimated Glomerular Filt Rate 89 ml/min (>60); GFR (African American) 108 ML/MIN (>60); Glucose 111 mg/dl (74-100); Potassium 3.5 mmoL/L (3.5-5.1); Sodium 137 mmol/L (136-145)
[2021-03-04 09:11] LABS: Troponin I < 0.01 ng/ml (0.00-0.034)
[2021-03-04 09:57] LABS: Hemoglobin A1C 5.3 % (4.0-6.0)
[2021-03-04 10:45] LABS: Chol/HDL Ratio 2.9 (1-3.5); Cholesterol 186 mg/dl (140-200); HDL Cholesterol 64 mg/dl (40-60); Triglycerides 231 mg/dl (30-150); VLDL Cholesterol 46 mg/dL (0-40)
[2021-03-04 10:56] LABS: Direct LDL Cholesterol 75.86 mg/dL (100-129)
[2021-03-04 11:59] LABS: CATHL Activated Clotting Time 317 SEC (74-125)
[2021-03-04 12:01] LABS: CATHL Activated Clotting Time > 400 SEC (74-125)
--- NOTE | 2021-03-04 13:51 | HMH.HP ---
*Admission Date: 03/04/21 *Chief complaint: Anterior chest pain *History of present illness: 50-year-old white female with known coronary artery disease and obesity presented to the emergency department with a 3-day history of recurrent exertional chest pain that was reminiscent of her symptoms prior to cardiac catheterization and subsequent stenting in April of this year. Symptoms would resolve with rest until last evening when they continue despite rest. Patient was seen in the emergency department and given aspirin along with sublingual nitroglycerin with near resolution of symptoms. She was admitted for observation. Troponins have returned normal x2 overnight. EKG is sinus rhythm with poor R wave progression anteriorly and T wave inversion. Patient remains asymptomatic this morning. [facility] History I have reviewed the patient's past medical history: Yes Medical History: Reports:: Anxiety, Asthma, Congenital Heart Disease, Coronary Artery Disease, Depression, Gastroesophageal Reflux Disease(GERD), Hyperlipidemia, Hypertension, Migraine Denies:: Cancer, Diabetes Mellitus Type 1, Diabetes Mellitus Type 2, Internal Pacemaker, MRSA, Seizures *Have you ever received a pneumonia vaccine?: No *Have you received a flu vaccine this season?: No Other Medical History: Reports: Hypothyroidism, Sinus Problems, Thyroid Disease, Other Laterality Cases: Bilateral: Other Other Surgeries: Yes: Cardiac Catheterization, Cholecystectomy, Coronary Stent, , Thyroidectomy, Tubal Ligation. No: Pacemaker Amputation: No Fractures: No - *Social History Smoking Status: Never smoker Alcohol Intake: never Alcohol Intake Frequency:: holidays/special occasions only Substance Use Type: denies use *Occupational Status:: unemployed Housing: house Household Members: spouse *Travel in the last 8 weeks: None - Psychiatric History Pschychiatric History:: Reports:: Anxiety, Depression Family Hx:: Cancer, Diabetes, Heart Attack Review of Systems - Review of Systems Review of systems:: pertinent systems reviewed and negative unless documented below - *Neurologic Denies headache(s), Denies numbness, Denies tingling Meds Home Medications Medication Instructions Recorded Confirmed Type aspirin 81 mg tablet,delayed 81 mg PO DAILY 30 Days #30 09/05/17 03/04/21 History release hydroxyzine pamoate 25 mg capsule 25 mg PO BIDP PRN cap 05/14/20 03/04/21 History topiramate 100 mg tablet 100 mg PO HS tab 05/14/20 03/04/21 History Atorvastatin Calcium [Lipitor 40mg 40 mg PO DAILY 03/04/21 03/04/21 History Tab] Citalopram Hydrobromide 20 mg PO DAILY 03/04/21 03/04/21 History [Citalopram 20mg Tablet] Clopidogrel Bisulfate [Plavix] 75 mg PO DAILY 03/04/21 03/04/21 History Diclofenac Sodium [Voltaren 1 applicatio TP NEEDED PRN 03/04/21 03/04/21 History Arthritis Pain] Ferrous Sulfate 325 mg PO DAILY 03/04/21 03/04/21 History Fexofenadine HCl [Allergy Relief] 180 mg PO DAILY 03/04/21 03/04/21 History Levothyroxine Sodium [Euthyrox] 175 mcg PO DAILY 03/04/21 03/04/21 History Ropinirole HCl 2 mg PO HS 03/04/21 03/04/21 History bisoproloL fumarate [Bisoprolol 5 mg PO DAILY 03/04/21 03/04/21 History Fumarate] hydroCHLOROthiazide 12.5 mg PO DAILY 03/04/21 03/04/21 History [Hydrochlorothiazide 12.5mg Tab] nitroglycerin 0.4 mg sublingual 0.4 mg SUBLINGUAL Q5M PRN #30 tab 03/04/21 Rx tablet Allergies Allergy/AdvReac Type Severity Reaction Status Date / Time Penicillins [PENICILLINS] Allergy Intermediate ITCHING Verified 08/26/20 08:58 morphine [MORPHINE] Allergy Mild Verified 08/26/20 08:58 Iodinated Contrast Media AdvReac Intermediate HIVES,COUGH,NAUSEA,DIZZY Verified 08/26/20 08:58 [Iodinated Contrast Media - - NEED TO Oral and] PREMED BEFORE GIVING Exam Vital signs and Labs for Last 24 Hours: Temp Pulse Resp BP Pulse Ox 98.7 F 70 18 129/60 92 L 03/04/21 07:24 03/04/21 11:55 03/04/21 1
--- NOTE | 2021-03-04 19:22 | PC.NURSE ---
radial band deflated as follows: 1330: -3 (17mL remains) 1345: -3 (14mL remains) 1400: -3 (11 mL remains) 1415: -3 (8mL remains) 1430: -3 (5 mL remains) 1445: -3 (2 mL remains) 15:00 -2 (cuff deflated and removed)
[2021-03-04 19:26] LABS: POC Glucose,Bedside 154 (70-110)
[2021-03-04 20:33] LABS: POC Glucose,Bedside 200 (70-110)
[2021-03-05] VITALS: PULSE 70
[2021-03-05 04:00] VITALS: BP 118/61; PULSE 60; PULSE 74; RESP 16; TEMP 36.8; O2SAT 96
[2021-03-05 04:16] VITALS: BMI 48.2
[2021-03-05 05:26] LABS: POC Glucose,Bedside 131 (70-110)
[2021-03-05 06:55] LABS: Basophils % 0.2 % (0.1-2.0); Hematocrit 41.8 % (37.0-47.0); Hemoglobin 13.4 g/dL (12.2-16.2); Lymphocytes # 1.3 K/mm3 (0.7-4.5); Lymphocytes % 7.1 % (10-50); Mean Corpuscular Hemoglobin 28.9 pg (27.0-31.2); Mean Corpuscular Volume 90.4 fl (81-99); Monocytes # 0.6 K/mm3 (0.1-1.0); Monocytes % 3.1 % (1.7-9.3); Neutrophils # 16.7 K/mm3 (1.8-7.8); Neutrophils % 89.5 % (37.0-80.0); Platelet Count 396 K/mm3 (142-424); Red Blood Count 4.63 M/mm3 (4.20-5.40); Red Cell Distribution Width 13.3 % (11.5-17.5); White Blood Count 18.7 K/mm3 (4.8-10.8)
[2021-03-05 07:00] LABS: MANUAL DIFFERENTIAL MANUAL DIFFERENTIAL (MANUAL DIFF)
[2021-03-05 07:09] LABS: Anion Gap 7.5 mEq/L (5-15); Blood Urea Nitrogen 15 mg/dl (7-17); Calcium 9.3 mg/dl (8.4-10.2); Carbon Dioxide 35 mmol/L (22.0-30.0); Chloride 98 mmol/L (98-107); Creatinine Clearance Estimated 60 mL/min (50-200); Estimated Glomerular Filt Rate 67 ml/min (>60); GFR (African American) 81 ML/MIN (>60); Glucose 118 mg/dl (74-100); Potassium 3.5 mmoL/L (3.5-5.1); Sodium 137 mmol/L (136-145)
[2021-03-05 07:46] VITALS: BP 108/63; PULSE 63; RESP 17; TEMP 36.6; O2SAT 94
--- NOTE | 2021-03-05 08:08 | HMH.PNCARD ---
Subjective Date: 03/05/21 Time: 08:08 Principal diagnosis: Angina Interval history: 50 yo WF in bed in NAD. No chest pains. Feeling much better. Discussed diet changes regarding salt intake and soda in setting of diastolic dysfunction. Also discussed that she may be insulin resistant as part of the reason for aggressive CAD. Will defer workup to PCP. Exam Vital signs and Labs for Last 24 Hours: Temp Pulse Resp BP Pulse Ox 97.9 F 63 17 108/63 L 94 L 03/05/21 07:46 03/05/21 07:46 03/05/21 07:46 03/05/21 07:46 03/05/21 07:46 Laboratory Results - last 24 hr 03/04/21 00:42: Hemoglobin A1c 5.3 03/04/21 00:46: Triglycerides 231 H, Cholesterol 186, LDL Cholesterol Direct 75.86 L, VLDL Cholesterol 46 H, HDL Cholesterol 64 H, Cholesterol/HDL Ratio 2.9 03/04/21 06:30: Sodium 137, Potassium 3.5, Chloride 102, Carbon Dioxide 35 H, Anion Gap 3.5 L, BUN 18 H, Creatinine 0.70, Estimated Creat Clear 77, Estimated GFR 89, Est GFR ( Amer) 108, Glucose 111 H, Calcium 8.9, Troponin I < 0.01 03/04/21 11:57: Activated Clotting Time > 400 H* 03/04/21 12:21: Activated Clotting Time 317 H* D 03/04/21 16:51: POC Glucose 154 H 03/04/21 20:22: POC Glucose 200 H 03/05/21 05:04: POC Glucose 131 H 03/05/21 05:24: WBC 18.7 H D, RBC 4.63, Hgb 13.4, Hct 41.8, MCV 90.4, MCH 28.9, MCHC 32.0, RDW 13.3, Plt Count 396, MPV 8.0, Neut % (Auto) 89.5 H, Lymph % (Auto) 7.1 L, [place] % (Auto) 3.1, Eos % (Auto) 0.0 L, Baso % (Auto) 0.2, Neut # (Auto) 16.7 H, Lymph # (Auto) 1.3, [place] # (Auto) 0.6, Eos # (Auto) 0.0, Baso # (Auto) 0.0 03/05/21 05:24: Sodium 137, Potassium 3.5, Chloride 98, Carbon Dioxide 35 H, Anion Gap 7.5, BUN 15, Creatinine 0.90 D, Estimated Creat Clear 60, Estimated GFR 67, Est GFR ( Amer) 81 D, Glucose 118 H, Calcium 9.3 I & O for Last 24 hours: Intake & Output 03/02/21 03/03/21 03/04/21 03/05/21 11:59 11:59 11:59 11:59 Intake Total 360 / 360 1713 / 1713 Output Total 0 / 0 Balance 360 / 360 1713 / 1713 Weight 262 lb 14.384 oz 272 lb - Constitutional no acute distress - *Routine HEENT Exam Head: Present: normocephalic Eye: Present: EOMI, PERRL ENT: Present: mucous membranes moist - *Routine Neck Exam Present: supple. Absent: lymphadenopathy - *Routine Respiratory Exam Present: CTA bilaterally - *Routine Cardiovascular Exam Present: RRR - *Routine Abdominal Exam Present: soft, normoactive bowel sounds. Absent: tenderness - *Routine Extremities Exam Absent: cyanosis, clubbing, edema - *Routine Skin Exam Present: warm. Absent: rash - *Routine Neurological Exam Present: alert, oriented X3 Progress Note: A&P (1) Coronary artery disease with exertional angina Status: Acute (2) Hyperlipidemia Status: Acute (3) Obesity Status: Acute (4) Diastolic dysfunction Status: Chronic (5) HTN (hypertension) Status: Chronic Assessment and Plan for All Diagnoses:: 1. CAD, s/p GALE to LAD and Circ. Continue ASA, plavix. Atorvastatin increased to 80 mg daily. 2. Diastolic dysfunction, continue bisoprolol. Added Irbesartan 75 mg daily along with lasix 40 mg daily and potassium 20 meq daily. Will need BMP in one week. 3. Elevated glucose but normal Hgb A1C. Concerned for insulin resistance. 4. Obesity Okay for discharge home from cardiology standpoint Home medication recommendations: Bisoprolol 5 mg daily Irbesartan 75 mg daily Lasix 40 mg daily Potassium 20 mEq daily Atorvastatin 80 mg daily Aspirin 81 mg daily Plavix 75 mg daily Follow-up in our office in 1 week with BMP on the day of visit.
--- NOTE | 2021-03-05 08:51 | HMH.DCSUM ---
General - General Admission date:: 03/04/21 Discharge date: 03/05/21 HPI HPI: 50-year-old white female with known coronary artery disease and obesity presented to the emergency department with a 3-day history of recurrent exertional chest pain that was reminiscent of her symptoms prior to cardiac catheterization and subsequent stenting in April of this year. Symptoms would resolve with rest until last evening when they continue despite rest. Patient was seen in the emergency department and given aspirin along with sublingual nitroglycerin with near resolution of symptoms. She was admitted for observation. Troponins have returned normal x2 overnight. EKG is sinus rhythm with poor R wave progression anteriorly and T wave inversion. Patient remains asymptomatic this morning. Hospital Course Hospital Course: Patient was admitted. Given her significant history and atypical chest pain she was taken to [facility] on 03/04/[facility]21. Results as noted below: ANGIOGRAPHIC RESULTS The left main artery Normal The left anterior descending artery Has an ostial greater than 90% stenosis which appears to represent a component of in-stent restenosis. Distal to the stent there is an additional 30 to 40% proximal LAD stenosis. The circumflex artery Is nondominant yet still large vessel and has an eccentric 50% stenosis The right coronary artery Is a codominant vessel and has proximal and mid vessel 10 to 20% stenoses with a distal 40 to 50% stenosis proximal to the origin of the PDA and posterior lateral branch The CSAEY ventriculogram reveals Normal 65% The left ventricular end-diastolic pressure Severe to critically elevated at 55 mmHg IMPRESSION Coronary disease as described above Successful percutaneous revascularization of a critically diseased ostial LAD reducing the critical disease to 0%. Successful stenting of an ostial circumflex artery extending back into the left main artery reducing the stenosis to 10% Normal ejection fraction Critically elevated LVEDP PLAN 1. Dual antiplatelet therapy 2. Risk factor modification 3. Cardiac rehabilitation 4. Avoidance of tobacco products 5. Patient must have more aggressive control of her diabetes. 6. I would recommend a Myoview stress test in 6 months as well as 1 year. In this particular patient I would recommend an annual Myoview. Patient did well overnight. This morning patient was feeling much better. Patient will be discharged home with the addition of ARB medication, Lasix and potassium. Given her elevated sugar and significant cardiac disease we will start Jardiance given its positive effects on coronary atherosclerotic outcomes. We will set up follow-up in my office on Tuesday and with cardiology this week. Objective Vital signs: Temp Pulse Resp BP Pulse Ox 97.9 F 63 17 108/63 L 94 L 03/05/21 07:46 03/05/21 07:46 03/05/21 07:46 03/05/21 07:46 03/05/21 07:46 no acute distress - *Routine HEENT Exam Head: Present: normocephalic Eye: Present: EOMI, PERRL ENT: Present: mucous membranes moist - *Routine Neck Exam Present: supple - *Routine Respiratory Exam Present: CTA bilaterally - *Routine Cardiovascular Exam Present: RRR - *Routine Abdominal Exam Present: soft, normoactive bowel sounds. Absent: tenderness - *Routine Extremities Exam Absent: cyanosis, clubbing, edema - *Routine Skin Exam Present: warm. Absent: rash - Detailed Eye Exam Eyelids: Bilateral normal inspection Results Labs on day of discharge: Labs from last 24 hours 03/05/21 03/05/21 03/05/21 05:24 05:24 05:04 WBC 18.7 H D RBC 4.63 Hgb 13.4 Hct 41.8 MCV 90.4 MCH 28.9 MCHC 32.0 RDW 13.3 Plt Count 396 MPV 8.0 Neut % (Auto) 89.5 H Lymph % (Auto) 7.1 L [place] % (Auto) 3.1 Eos % (Auto) 0.0 L Baso % (Auto) 0.2 Neut # (Auto) 16.7 H Lymph # (Auto) 1.3 [place] # (Auto) 0.6 Eos # (Auto) 0.0 Bas
[2021-03-05 09:07] LABS: Lymphocytes % 5 % (10-50); Monocytes % 2 % (2-9); Neutrophils % 93 % (42-76); Platelet Estimate Normal; RBC Morphology Normal; Total Cells Counted 100
--- NOTE | 2021-03-05 10:33 | HMH.PHACLD ---
Chandni Morales has received discharge medication counseling on the following medications: -ASA -PLAVIX -BISOPROLOL -ATORVASTATIN -IRBESARTAN
[2021-03-05 12:03] VITALS: BMI 48.2
== END 2021-03-05 11:35 | disposition home or self-care (01) ==
LOC: ER 00:44 → 2ND 01:42
PROVIDERS: Internal Medicine; Physician Assistant; Admitting Provider Family Medicine; Emergency Provider Emergency Medicine; PCP Internal Medicine Adolescent Medicine; Visit Provider Internal Medicine Adolescent Medicine
DX: I25.118 Atherosclerotic heart disease of native coronary artery with other forms of angina pectoris (principal); R07.9 Chest pain, unspecified; Z20.822 Contact with and (suspected) exposure to COVID-19; E11.9 Type 2 diabetes mellitus without complications; Z79.899 Other long term (current) drug therapy; I10 Essential (primary) hypertension; G43.909 Migraine, unspecified, not intractable, without status migrainosus; Z95.5 Presence of coronary angioplasty implant and graft; E03.9 Hypothyroidism, unspecified; E66.01 Morbid (severe) obesity due to excess calories; Z68.42 Body mass index [BMI] 45.0-49.9, adult
CPT/HCPCS: 36415; 71045; 80048; 80061; 82962; 83036; 84484; 85007; 85025; 85347; 92920; 92928; 93005; 93458; 99152; 99153; 99284; C1725; C1769; C1876; C9600; C9803; G0378; J1644; J2405; Q9967; U0003; U0005

== ENCOUNTER 2021-03-08 11:29 | Observation (INO) | payer BC, SELFPAY ==
[2021-03-08] VITALS (18 sets, daily range): BP systolic 96–145; BP diastolic 32–74; PULSE 48–60; RESP 12–24; TEMP 36.4–36.7; O2SAT 96–100; BMI 46.0; BMI 46.1
--- NOTE | 2021-03-08 | ECG_ITS ---
APPROVED REPORT Exam: Resting ECG HR:54 bpm ECG Measurements Heart Rate 54 AXES MA 164 P 31 QRSd 92 QRS 21 QT 426 T 48 QTc 403 Conclusion Sinus bradycardia Otherwise normal ECG Electronically signed by : Edward Joshi MD 03/09/2021 20:17:29
--- NOTE | 2021-03-08 11:29 | ECG_ITS ---
APPROVED REPORT Exam: Resting ECG HR:55 bpm ECG Measurements Heart Rate 55 AXES [place] 164 P 36 QRSd 96 QRS 67 QT 442 T 53 QTc 422 Conclusion Sinus bradycardia Low voltage QRS Nonspecific T wave abnormality Abnormal ECG Electronically signed by : Edward Joshi MD 03/09/2021 20:19:32
--- NOTE | 2021-03-08 11:53 | XR_ITS ---
PROCEDURE INFORMATION: Exam: XR Chest Exam date and time: 03/08/2021 11:53 AM Age: 50 years old Clinical indication: Pain; On breathing; Additional info: Cp TECHNIQUE: Imaging protocol: XR of the chest. Views: 1 view. COMPARISON: CR XR CHEST PORTABLE 03/04/2021 12:57 AM FINDINGS: Lungs: Unremarkable. No consolidation. Pleural spaces: Unremarkable. No pleural effusion. No pneumothorax. Heart/Mediastinum: Unremarkable. No cardiomegaly. Bones/joints: Unremarkable. IMPRESSION: No acute findings.
--- NOTE | 2021-03-08 11:54 | PC.NURSE ---
Notified Rad of CXR
[2021-03-08 12:01] LABS: Basophils # 0.1 K/mm3 (0-0.2); Basophils % 0.6 % (0.1-2.0); Eosinophils # 0.4 K/mm3 (0.0-0.4); Eosinophils % 3.2 % (0.1-12.0); Hematocrit 43.5 % (37.0-47.0); Hemoglobin 14.2 g/dL (12.2-16.2); Lymphocytes # 2.5 K/mm3 (0.7-4.5); Lymphocytes % 19.6 % (10-50); Mean Corpuscular HGB Conc 32.7 g/dL (31.8-35.4); Mean Corpuscular Volume 88.8 fl (81-99); Mean Platelet Volume 7.4 fl (7.4-10.4); Monocytes # 0.6 K/mm3 (0.1-1.0); Monocytes % 4.9 % (1.7-9.3); Neutrophils # 9.2 K/mm3 (1.8-7.8); Neutrophils % 71.7 % (37.0-80.0); Platelet Count 384 K/mm3 (142-424); White Blood Count 12.9 K/mm3 (4.8-10.8)
[2021-03-08 12:03] LABS: Chloride 98 mmol/L (98-107); Potassium 3.8 mmoL/L (3.5-5.1); Sodium 137 mmol/L (136-145)
[2021-03-08 12:06] LABS: Anion Gap 12.8 mEq/L (5-15); Blood Urea Nitrogen 26 mg/dl (7-17); Calcium 9.3 mg/dl (8.4-10.2); Carbon Dioxide 30 mmol/L (22.0-30.0); Creatinine Clearance Estimated 63 mL/min (50-200); Estimated Glomerular Filt Rate 67 ml/min (>60); GFR (African American) 81 ML/MIN (>60); Glucose 112 mg/dl (74-100)
[2021-03-08 12:18] LABS: Troponin I 0.16 ng/ml (0.00-0.034)
[2021-03-08 12:28] LABS: Appearance,Urine CLEAR (Clear); Bilirubin,Urine Negative (Negative); Blood, Urine Negative (Negative); Color,Urine STRAW (Yellow); Glucose,Urine (UA) Negative (Negative); Ketones,Urine Negative (Negative); Leukocyte Esterase,Urine Negative (Negative); Microscopic, Urine URINE MICROSCOPIC (MICROSCOPIC); Nitrate,Urine Negative (Negative); Protein,Urine Negative (Negative); Specific Gravity, Urine 1.015 (1.005-1.030); Urobilinogen,Urine 0.2 EU/dl (0.2)
--- NOTE | 2021-03-08 12:30 | PC.NURSE ---
has been paged.
--- NOTE | 2021-03-08 12:32 | HMH.EDCP ---
ED Disposition Clinical Impression: Unstable angina, Chest pain Disposition: Admitted As Inpatient Condition on Discharge: Good Time of Disposition: 13:00 - Critical Care Critical Care Time: Yes Attestation: On 03/08/21, the high probability of a clinically significant, sudden or life threatening deterioration of the following system(s) required my full and direct attention, intervention and personal management. The time I documented below is in addition to time spent performing reported procedures but includes the following listed in this critical care notation. Total Critical Care Time: 30 Vital system(s) involved:: Circulatory Failure My critical care processes included: Assessment & monitoring of V/S, Initial and Re-exams, Data Review/Interpretation, Coordinating Care, Medication Orders and management, Documentation Medical Decision Making - Medical Records Medical records reviewed: Yes: I reviewed the patient's medical records. - Brad Inquiry Pt receiving controlled substance: No Vital Signs: 03/08/21 11:29 03/08/21 12:01 03/08/21 12:16 Temperature 98.1 F Temperature Source Oral Pulse Rate 52 L 58 L Pulse Rate [Right Radial] 54 L Respiratory Rate 18 24 17 Blood Pressure 96/32 L 118/35 L Blood Pressure [Right Arm] 128/63 Blood Pressure Mean Blood Pressure Mean [Right Arm] 84 Blood Pressure Source [Right Arm] Automatic Cuff Blood Pressure Position [Right Arm] Sitting 02 Sat by Pulse Oximetry 98 96 97 Oxygen Delivery Method Room Air 03/08/21 12:30 03/08/21 13:00 03/08/21 13:31 Temperature Temperature Source Pulse Rate 53 L 57 L 48 L Pulse Rate [Right Radial] Respiratory Rate 16 16 20 Blood Pressure 99/52 L 107/50 L 122/37 L Blood Pressure [Right Arm] Blood Pressure Mean 68 70 65 Blood Pressure Mean [Right Arm] Blood Pressure Source [Right Arm] Blood Pressure Position [Right Arm] 02 Sat by Pulse Oximetry 98 98 100 Oxygen Delivery Method Room Air 03/08/21 14:00 03/08/21 14:31 03/08/21 15:00 Temperature Temperature Source Pulse Rate 55 L 54 L 57 L Pulse Rate [Right Radial] Respiratory Rate 16 16 12 Blood Pressure 112/52 L 120/74 111/58 L Blood Pressure [Right Arm] Blood Pressure Mean 75 81 76 Blood Pressure Mean [Right Arm] Blood Pressure Source [Right Arm] Blood Pressure Position [Right Arm] 02 Sat by Pulse Oximetry 96 97 96 Oxygen Delivery Method 03/08/21 15:31 03/08/21 16:00 03/08/21 16:30 Temperature Temperature Source Pulse Rate 54 L 55 L 52 L Pulse Rate [Right Radial] Respiratory Rate 15 13 13 Blood Pressure 110/61 118/67 101/53 L Blood Pressure [Right Arm] Blood Pressure Mean 65 80 69 Blood Pressure Mean [Right Arm] Blood Pressure Source [Right Arm] Blood Pressure Position [Right Arm] 02 Sat by Pulse Oximetry 98 97 98 Oxygen Delivery Method Room Air - Lab Data Lab results reviewed: Yes: I reviewed the patient's lab results. Lab Results 03/08/21 11:30: WBC 12.9 H, RBC 4.90, Hgb 14.2, Hct 43.5, MCV 88.8, MCH 29.0, MCHC 32.7, RDW 13.0, Plt Count 384, MPV 7.4, Neut % (Auto) 71.7, Lymph % (Auto) 19.6, [place] % (Auto) 4.9, Eos % (Auto) 3.2, Baso % (Auto) 0.6, Neut # (Auto) 9.2 H, Lymph # (Auto) 2.5, [place] # (Auto) 0.6, Eos # (Auto) 0.4, Baso # (Auto) 0.1 03/08/21 11:30: Sodium 137, Potassium 3.8, Chloride 98, Carbon Dioxide 30, Anion Gap 12.8, BUN 26 H, Creatinine 0.90, Estimated Creat Clear 63, Estimated GFR 67, Est GFR ( Amer) 81, Glucose 112 H, Calcium 9.3, Troponin I 0.16 H 03/08/21 11:30: WBC 12.7 H, RBC 4.86, Hgb 14.2, Hct 43.3, MCV 89.1, MCH 29.2, MCHC 32.8, RDW 13.1, Plt Count 374, MPV 7.8, Neut % (Auto) 72.7, Lymph % (Auto) 19.4, [place] % (Auto) 5.0, Eos % (Auto) 2.2, Baso % (Auto) 0.8, Neut # (Auto) 9.2 H, Lymph # (Auto) 2.5, [place] # (Auto) 0.6, Eos # (Auto) 0.3, Baso # (Auto) 0.1 03/08/21 11:30: PT 10.3, INR 0.90, APTT 27.2 03/08/21 11:30: Sodium 136, Potassium 3.8, Chloride 99,
--- NOTE | 2021-03-08 12:35 | PC.NURSE ---
Dr Coe spoke with Dr Abdi, he wants to have to pt admitted. Put a call out for Dr Lanier.
[2021-03-08 12:47] LABS: Chloride 99 mmol/L (98-107); Sodium 136 mmol/L (136-145)
--- NOTE | 2021-03-08 12:47 | PC.NURSE ---
Dr Lanier returned call.
[2021-03-08 12:48] LABS: Potassium 3.8 mmoL/L (3.5-5.1)
[2021-03-08 12:49] LABS: Basophils # 0.1 K/mm3 (0-0.2); Basophils % 0.8 % (0.1-2.0); Eosinophils # 0.3 K/mm3 (0.0-0.4); Eosinophils % 2.2 % (0.1-12.0); Hematocrit 43.3 % (37.0-47.0); Hemoglobin 14.2 g/dL (12.2-16.2); Lymphocytes # 2.5 K/mm3 (0.7-4.5); Lymphocytes % 19.4 % (10-50); Mean Corpuscular HGB Conc 32.8 g/dL (31.8-35.4); Mean Corpuscular Hemoglobin 29.2 pg (27.0-31.2); Mean Corpuscular Volume 89.1 fl (81-99); Mean Platelet Volume 7.8 fl (7.4-10.4); Monocytes # 0.6 K/mm3 (0.1-1.0); Neutrophils # 9.2 K/mm3 (1.8-7.8); Neutrophils % 72.7 % (37.0-80.0); Platelet Count 374 K/mm3 (142-424); Red Blood Count 4.86 M/mm3 (4.20-5.40); Red Cell Distribution Width 13.1 % (11.5-17.5); White Blood Count 12.7 K/mm3 (4.8-10.8)
[2021-03-08 12:50] LABS: Alanine Aminotransferase 23 U/L (12-78); Albumin Level 4.1 g/dl (3.5-5.0); Albumin/Globulin Ratio 1.2 (1.1-1.8); Alkaline Phosphatase 111 U/L (38-126); Anion Gap 10.8 mEq/L (5-15); Aspartate Amino Transferase 34 U/L (14-36); Bilirubin,Total 0.6 mg/dl (0.2-1.3); Blood Urea Nitrogen 27 mg/dl (7-17); Carbon Dioxide 30 mmol/L (22.0-30.0); Creatinine Clearance Estimated 56 mL/min (50-200); Estimated Glomerular Filt Rate 59 ml/min (>60); GFR (African American) 71 ML/MIN (>60); Globulin 3.4 g/dL (1.3-3.2); Total Protein,Serum 7.5 g/dl (6.3-8.2)
[2021-03-08 12:51] LABS: Calcium 9.3 mg/dl (8.4-10.2); Glucose 113 mg/dl (74-100)
[2021-03-08 12:57] LABS: Activated Partial Thrombo Time 27.2 seconds (22.8-30.6); Prothrombin Time 10.3 seconds (10.1-12.5)
[2021-03-08 12:59] LABS: Coronavirus 19, PCR Not Detected (NotDetected); Influenza A, PCR Not Detected (NotDetected); Influenza B, PCR Not Detected (NotDetected)
--- NOTE | 2021-03-08 13:00 | PC.NURSE ---
Attempted to call [facility] for bed request for admission of pt. No answer. Will try again in a few minutes.
--- NOTE | 2021-03-08 13:17 | ECG_ITS ---
APPROVED REPORT Exam: Resting ECG HR:50 bpm ECG Measurements Heart Rate 50 AXES VT 184 P 48 QRSd 96 QRS -16 QT 444 T 29 QTc 404 Conclusion Sinus bradycardia with sinus arrhythmia Low voltage QRS Nonspecific T wave abnormality Abnormal ECG Electronically signed by : Edward Joshi MD 03/09/2021 20:18:55
--- NOTE | 2021-03-08 13:31 | PC.NURSE ---
Lab at bedside
[2021-03-08 14:19] LABS: Chloride 97 mmol/L (98-107); Potassium 3.5 mmoL/L (3.5-5.1); Sodium 136 mmol/L (136-145)
[2021-03-08 14:22] LABS: Anion Gap 12.5 mEq/L (5-15); Blood Urea Nitrogen 24 mg/dl (7-17); Carbon Dioxide 30 mmol/L (22.0-30.0); Creatinine Clearance Estimated 63 mL/min (50-200); Estimated Glomerular Filt Rate 67 ml/min (>60); GFR (African American) 81 ML/MIN (>60)
[2021-03-08 14:23] LABS: Calcium 9.4 mg/dl (8.4-10.2); Glucose 87 mg/dl (74-100)
[2021-03-08 14:26] LABS: Basophils # 0.1 K/mm3 (0-0.2); Basophils % 0.6 % (0.1-2.0); Eosinophils # 0.2 K/mm3 (0.0-0.4); Eosinophils % 1.6 % (0.1-12.0); Hematocrit 51.8 % (37.0-47.0); Lymphocytes # 2.2 K/mm3 (0.7-4.5); Lymphocytes % 21.7 % (10-50); Mean Corpuscular HGB Conc 31.4 g/dL (31.8-35.4); Mean Corpuscular Hemoglobin 28.5 pg (27.0-31.2); Mean Corpuscular Volume 90.8 fl (81-99); Mean Platelet Volume 7.2 fl (7.4-10.4); Monocytes # 0.5 K/mm3 (0.1-1.0); Monocytes % 4.5 % (1.7-9.3); Neutrophils # 7.5 K/mm3 (1.8-7.8); Neutrophils % 71.7 % (37.0-80.0); Platelet Count 276 K/mm3 (142-424); Red Blood Count 5.71 M/mm3 (4.20-5.40); Red Cell Distribution Width 12.9 % (11.5-17.5); White Blood Count 10.4 K/mm3 (4.8-10.8)
[2021-03-08 14:29] LABS: Hemoglobin 13.6 g/dL (12.2-16.2)
--- NOTE | 2021-03-08 14:32 | PC.NURSE ---
pt will be boarding in ER until a bed is available on second floor
[2021-03-08 14:37] LABS: Troponin I 0.16 ng/ml (0.00-0.034)
[2021-03-08 15:51] LABS: Troponin I 0.14 ng/ml (0.00-0.034)
--- NOTE | 2021-03-08 16:20 | PC.NURSE ---
Pt resting in bed at this time. Pt has been napping off and on. Pt no longer c/o CP at this time. V/S WNL. Will continue to monitor.
--- NOTE | 2021-03-08 16:44 | PC.NURSE ---
report called to antionette mason on second floor at this time
--- NOTE | 2021-03-08 18:47 | HMH.HP ---
*Admission Date: 03/08/21 *Chief complaint: CHEST PAIN *History of present illness: She is a pleasant 50-year-old white female with known coronary artery disease, morbid obesity, hyperlipidemia, hypothyroid, with recent admission last week for angina. Was admitted overnight, heart cath performed with numerous drug-eluting stents deployed in a critically diseased ostial LAD and circumflex. Was monitored overnight and discharged home. Reports over the past several days she has had occasional twinges of pain in her chest. Presented to the ER today due to worsening chest pressure, pain, squeezing sensation substernal while sitting in a pew at [employer]. On arrival to the ER she was found to have elevation in her troponins. Cardiology was consulted, patient admitted to medicine for management overnight and monitoring on telemetry along with serial enzymes. On assessment after arriving to the floor, she states her pain is doing better after morphine but still present just to the lower level. Denies any nausea, shortness of breath, vomiting or diarrhea. Blood pressure well controlled less than 130/80. Remainder of labs unremarkable. A. History of cardiac catheterization in 2018 with mild coronary artery disease B. History of normal Lexiscan Myoview 04/2020 C. Left heart catheterization, 04/2020, GALE to ostial LAD with mild to moderate CAD of all 3 coronary vessels. D. Left heart cath, 03/05/21, GALE to critically diseased ostial LAD; GALE to ostial circumflex artery extending back into the left main artery reducing the stenosis to 10% [facility] History I have reviewed the patient's past medical history: Yes Medical History: Reports:: Anxiety, Asthma, Congenital Heart Disease, Coronary Artery Disease, Depression, Gastroesophageal Reflux Disease(GERD), Hyperlipidemia, Hypertension, Migraine Denies:: Cancer, Diabetes Mellitus Type 1, Diabetes Mellitus Type 2, Internal Pacemaker, MRSA, Seizures *Have you ever received a pneumonia vaccine?: No *Have you received a flu vaccine this season?: No Other Medical History: Reports: Hypothyroidism, Sinus Problems, Thyroid Disease, Other Laterality Cases: Bilateral: Other Other Surgeries: Yes: Cardiac Catheterization, Cholecystectomy, Coronary Stent, , Thyroidectomy, Tubal Ligation. No: Pacemaker Amputation: No Fractures: No - *Social History Smoking Status: Never smoker Alcohol Intake: never Alcohol Intake Frequency:: holidays/special occasions only Substance Use Type: denies use *Occupational Status:: unemployed Housing: house Household Members: spouse *Travel in the last 8 weeks: None - Psychiatric History Pschychiatric History:: Reports:: Anxiety, Depression Family Hx:: Cancer, Diabetes, Heart Attack Review of Systems - Review of Systems Review of systems:: pertinent systems reviewed and negative unless documented below (14 point review of systems performed, pertinent positives and negatives as per HPI) Meds Home Medications Medication Instructions Recorded Confirmed Type aspirin 81 mg tablet,delayed 81 mg PO DAILY 30 Days #30 09/05/17 03/08/21 History release hydroxyzine pamoate 25 mg capsule 25 mg PO BIDP PRN cap 05/14/20 03/04/21 History topiramate 100 mg tablet 100 mg PO HS tab 05/14/20 03/08/21 History Atorvastatin Calcium [Lipitor 40mg 40 mg PO DAILY 03/04/21 03/08/21 History Tab] Citalopram Hydrobromide 20 mg PO HS 03/04/21 03/08/21 History [Citalopram 20mg Tablet] Clopidogrel Bisulfate [Plavix] 75 mg PO DAILY 03/04/21 03/08/21 History Diclofenac Sodium [Voltaren 1 applicatio TP NEEDED PRN 03/04/21 03/08/21 History Arthritis Pain] Ferrous Sulfate 325 mg PO HS 03/04/21 03/08/21 History Fexofenadine HCl [Allergy Relief] 180 mg PO DAILY 03/04/21 03/08/21 History Levothyroxine Sodium [Euthyrox] 175 mcg PO DAILY 03/04/21 03/08/21 History Ropinirole HCl 2 mg PO HS 03/04/21 03/08/21 History bisoproloL fumarate [Bisoprolol 5 mg PO DAILY 03/04/21 03/08/21 His
[2021-03-08 20:49] LABS: POC Glucose,Bedside 122 (70-110)
--- NOTE | 2021-03-08 21:45 | ECG_ITS ---
APPROVED REPORT Exam: Resting ECG HR:54 bpm ECG Measurements Heart Rate 54 AXES [place] 164 P 31 QRSd 92 QRS 21 QT 426 T 48 QTc 403 Conclusion Sinus bradycardia Otherwise normal ECG Electronically signed by : Edward Joshi MD 03/09/2021 20:17:42
--- NOTE | 2021-03-08 22:16 | PC.NURSE ---
late entry: 2139 Pt c/o nausea/vomiting and increase headache. Dr Lanier notified of pt c/o. Orders for STAT EKG and STAT Troponin. Protonix 40mg x 1 IV and zofran 4mg IV. R/V. 2142: Respiratory at bedside performing EKG 2143: Lab at bedside. Troponin obtained with new IV start by Hanane CUEVAS. New 20g Iv to left ac. Old Iv dc'd with catheter intact. 2144: EKG taken to ER for Dr Moses to review. No acute changes. Pt resting with RN at bedside. Telemetry placed per order.
[2021-03-08 22:23] LABS: Troponin I 0.13 ng/ml (0.00-0.034)
[2021-03-09] VITALS: BP 101/47; PULSE 50; RESP 17; TEMP 36.8; O2SAT 95
[2021-03-09 04:00] VITALS: BP 110/50; PULSE 50; PULSE 54; RESP 17; TEMP 36.5; O2SAT 96
--- NOTE | 2021-03-09 04:24 | PC.NURSE ---
No acute changes from previous assessment. VS remain WNL as charted, pt states her chest pain and headache have improved. However, nausea persists (pt medicated per EMAR). Pt remains sinus tanner on telemetry.
[2021-03-09 05:08] VITALS: BMI 47.1
--- NOTE | 2021-03-09 07:33 | P.CONPHA_ITS ---
[facility] Pharmacy VTE Monitoring - Patient Demographics Admission date: 03/08/21 Report Date: 03/09/21 Time: 07:34 Allergies/Adverse Reactions: Patient Allergies Penicillins [PENICILLINS] Allergy (Intermediate, Verified 08/26/20 08:58) ITCHING morphine [MORPHINE] Allergy (Mild, Verified 08/26/20 08:58) Iodinated Contrast Media [Iodinated Contrast Media - Oral and] Adverse Reaction (Intermediate, Verified 08/26/20 08:58) HIVES,COUGH,NAUSEA,DIZZY - NEED TO PREMED BEFORE GIVING Height: 1.6 m Weight: 120.656 kg Patient Problems: Current Active Problems Chest pain (Acute) Coronary artery disease with exertional angina (Chronic) Hyperlipidemia (Chronic) Unstable angina (Acute) Morbid obesity with BMI of 45.0-49.9, adult (Chronic) Hypothyroid (Chronic) Depression (Chronic) CAD (coronary artery disease) (Chronic) HTN (hypertension) (Chronic) - VTE Risk Labs: VTE Related Lab Results Hgb 13.6 g/dL (12.2-16.2) 03/08/21 13:30 Hct 51.8 % (37.0-47.0) H 03/08/21 13:30 Plt Count 276 K/mm3 (142-424) D 03/08/21 13:30 PT 10.3 seconds (10.1-12.5) 03/08/21 11:30 INR 0.90 (0.9-1.1) 03/08/21 11:30 APTT 27.2 seconds (22.8-30.6) 03/08/21 11:30 BUN 24 mg/dl (7-17) H 03/08/21 13:30 Creatinine 0.90 mg/dl (0.52-1.04) 03/08/21 13:30 Estimated Creat Clear 63 mL/min (50-200) 03/08/21 13:30 - Prophylaxis VTE Prophylaxis Ordered?: Yes Types of VTE Prophylaxis: TEDS Knee High Location of Applied Device: Bilateral Lower Extremeties
[2021-03-09 08:00] VITALS: BP 120/65; PULSE 58; PULSE 60; RESP 20; TEMP 36.6; O2SAT 96
--- NOTE | 2021-03-09 08:48 | HMH.ACPN2 ---
Internal Medicine - PN: Subj *Date: 03/09/21 *Time: 08:48 Interval history: Overnight patient had no further chest pain, did have a little bit of nausea right before midnight and some vomiting. Has been n.p.o. since that time. Exam Vital signs and Labs for Last 24 Hours: Temp Pulse Resp BP Pulse Ox 97.9 F 58 L 20 120/65 96 03/09/21 08:00 03/09/21 08:00 03/09/21 08:00 03/09/21 08:00 03/09/21 08:00 Laboratory Results - last 24 hr 03/08/21 11:30: WBC 12.9 H, RBC 4.90, Hgb 14.2, Hct 43.5, MCV 88.8, MCH 29.0, MCHC 32.7, RDW 13.0, Plt Count 384, MPV 7.4, Neut % (Auto) 71.7, Lymph % (Auto) 19.6, [place] % (Auto) 4.9, Eos % (Auto) 3.2, Baso % (Auto) 0.6, Neut # (Auto) 9.2 H, Lymph # (Auto) 2.5, [place] # (Auto) 0.6, Eos # (Auto) 0.4, Baso # (Auto) 0.1 03/08/21 11:30: Sodium 137, Potassium 3.8, Chloride 98, Carbon Dioxide 30, Anion Gap 12.8, BUN 26 H, Creatinine 0.90, Estimated Creat Clear 63, Estimated GFR 67, Est GFR ( Amer) 81, Glucose 112 H, Calcium 9.3, Troponin I 0.16 H 03/08/21 11:30: WBC 12.7 H, RBC 4.86, Hgb 14.2, Hct 43.3, MCV 89.1, MCH 29.2, MCHC 32.8, RDW 13.1, Plt Count 374, MPV 7.8, Neut % (Auto) 72.7, Lymph % (Auto) 19.4, [place] % (Auto) 5.0, Eos % (Auto) 2.2, Baso % (Auto) 0.8, Neut # (Auto) 9.2 H, Lymph # (Auto) 2.5, [place] # (Auto) 0.6, Eos # (Auto) 0.3, Baso # (Auto) 0.1 03/08/21 11:30: PT 10.3, INR 0.90, APTT 27.2 03/08/21 11:30: Sodium 136, Potassium 3.8, Chloride 99, Carbon Dioxide 30, Anion Gap 10.8, BUN 27 H, Creatinine 1.00, Estimated Creat Clear 56, Estimated GFR 59, Est GFR ( Amer) 71, Glucose 113 H, Calcium 9.3, Total Bilirubin 0.6, AST 34, ALT 23, Alkaline Phosphatase 111, Total Protein 7.5, Albumin 4.1, Globulin 3.4 H, Albumin/Globulin Ratio 1.2 03/08/21 12:15: Urine Color Straw, Urine Appearance Clear, Urine pH 6.0, Ur Specific [place] 1.015, Urine Protein Negative, Urine Glucose (UA) Negative, Urine Ketones Negative, Urine Blood Negative, Urine Nitrate Negative, Urine Bilirubin Negative, Urine Urobilinogen 0.2, Ur Leukocyte Esterase Negative, Urine RBC None, Urine WBC None, Ur Squamous Epith Cells None, Urine Bacteria None 03/08/21 12:54: SARS-CoV-2 (PCR) Not detected, Influenza A Untype (PCR) Not detected, Influenza Type B (PCR) Not detected 03/08/21 13:30: WBC 10.4, RBC 5.71 H, Hgb 13.6, Hct 51.8 H, MCV 90.8, MCH 28.5, MCHC 31.4 L, RDW 12.9, Plt Count 276 D, MPV 7.2 L, Neut % (Auto) 71.7, Lymph % (Auto) 21.7, [place] % (Auto) 4.5, Eos % (Auto) 1.6, Baso % (Auto) 0.6, Neut # (Auto) 7.5, Lymph # (Auto) 2.2, [place] # (Auto) 0.5, Eos # (Auto) 0.2, Baso # (Auto) 0.1 03/08/21 13:30: Sodium 136, Potassium 3.5, Chloride 97 L, Carbon Dioxide 30, Anion Gap 12.5, BUN 24 H, Creatinine 0.90, Estimated Creat Clear 63, Estimated GFR 67, Est GFR ( Amer) 81, Glucose 87 D, Calcium 9.4 03/08/21 13:30: Troponin I 0.16 H 03/08/21 15:10: Troponin I 0.14 H 03/08/21 20:19: POC Glucose 122 H 03/08/21 21:42: Troponin I 0.13 H I & O for Last 24 hours: Intake & Output 03/06/21 03/07/21 03/08/21 03/09/21 11:59 11:59 11:59 11:59 Intake Total 240 / 240 Balance 240 / 240 Weight 260 lb 266 lb - Constitutional no acute distress - *Routine HEENT Exam Head: Present: normocephalic Eye: Present: EOMI, PERRL ENT: Present: mucous membranes moist - *Routine Neck Exam Present: supple. Absent: lymphadenopathy - *Routine Respiratory Exam Present: CTA bilaterally - *Routine Cardiovascular Exam Present: RRR - *Routine Abdominal Exam Present: soft, normoactive bowel sounds. Absent: tenderness - *Routine Extremities Exam Absent: cyanosis, clubbing, edema - *Routine Skin Exam Present: warm. Absent: rash - *Routine Neurological Exam Present: alert, oriented X3 Assessment and Plan (1) Unstable angina Status: Acute Category: Medical Code(s): I20.0 - Unstable angina (2) Morbid obesity with BMI of 45.0-49.9, adult Status: Chronic Category: Medical Code(s): E66.01 - Morbid (severe) obesity d
--- NOTE | 2021-03-09 10:11 | HMH.PHAINT ---
MEDICATION RECONCILIATION COMPLETED ON PATIENT USING EXTERNAL FILL HISTORY FROM PHARMACY AND DISCHARGE SUMMARY FROM PREVIOUS ADMISSION. -YAMILETH REDDYD
--- NOTE | 2021-03-09 10:25 | PC.NURSE ---
spoke with a black-okay for cardiac diet and okay to give beta xavier. r/v
--- NOTE | 2021-03-09 10:50 | HMH.CNCARD ---
History of Present Illness Consult date: 03/09/21 Requesting physician: Rodrigue Lanier Consult reason: chest pain Chief complaint: chest pain History of present illness: This is a 50-year-old white female who presented to the emergency department with chest pain and pressure. The patient underwent multiple stents placement last week to a critically diseased LAD and circumflex artery. She states that when she got home she had some occasional twinges in her chest that really did not amount to anything. However yesterday around 10:30 AM she started to have some substernal pressure and tight sensations in her chest. She states that she took a nitroglycerin and it resolved and she went on to uatsdin. She states that while she was sitting in uatsdin the chest pressure and tightness returned and was severe. She states that this persisted and she decided to come into the emergency department. It was associated with shortness of breath. She states that it did not radiate. And as mentioned before, he states that this was a severe pain. The patient came into the emergency department and did have an elevated troponin and the patient was admitted to the hospital for observation. Recent left cardiac catheterization showed: The left main artery Normal The left anterior descending artery Has an ostial greater than 90% stenosis which appears to represent a component of in-stent restenosis. Distal to the stent there is an additional 30 to 40% proximal LAD stenosis. The circumflex artery Is nondominant yet still large vessel and has an eccentric 50% stenosis The right coronary artery Is a codominant vessel and has proximal and mid vessel 10 to 20% stenoses with a distal 40 to 50% stenosis proximal to the origin of the PDA and posterior lateral branch The CASEY ventriculogram reveals Normal 65% The left ventricular end-diastolic pressure Severe to critically elevated at 55 mmHg IMPRESSION Coronary disease as described above Successful percutaneous revascularization of a critically diseased ostial LAD reducing the critical disease to 0%. Successful stenting of an ostial circumflex artery extending back into the left main artery reducing the stenosis to 10% Normal ejection fraction Critically elevated LVEDP PLAN 1. Dual antiplatelet therapy 2. Risk factor modification 3. Cardiac rehabilitation 4. Avoidance of tobacco products 5. Patient must have more aggressive control of her diabetes. 6. I would recommend a Myoview stress test in 6 months as well as 1 year. In this particular patient I would recommend an annual Myoview. [facility] History I have reviewed the patient's past medical history: Yes Medical History: Reports:: Anxiety, Asthma, Congenital Heart Disease, Coronary Artery Disease, Depression, Diabetes Mellitus Type 2, Gastroesophageal Reflux Disease(GERD), Hyperlipidemia, Hypertension, Migraine Denies:: Cancer, Diabetes Mellitus Type 1, Internal Pacemaker, MRSA, Seizures *Have you ever received a pneumonia vaccine?: No *Have you received a flu vaccine this season?: No Other Medical History: Reports: Hypothyroidism, Sinus Problems, Thyroid Disease, Other Laterality Cases: Bilateral: Other Other Surgeries: Yes: Cardiac Catheterization, Cholecystectomy, Coronary Stent, , Thyroidectomy, Tubal Ligation. No: Pacemaker Amputation: No Fractures: No - *Social History Last grade of school completed: High school graduate Smoking Status: Never smoker Alcohol Intake: never Alcohol Intake Frequency:: holidays/special occasions only Substance Use Type: denies use *Occupational Status:: unemployed Housing: house Household Members: spouse, children *Travel in the last 8 weeks: None - Psychiatric History Pschychiatric History:: Reports:: Anxiety, Depression Family Hx:: Cancer, Coronary Artery Disease, Diabetes, Heart Attack, Hyperlipidemia, Hypertension, Kidney Disease Meds Home Medications Medication Instructions Recorded Confirmed Type aspirin
[2021-03-09 11:34] VITALS: BP 120/60; PULSE 68; RESP 20; TEMP 36.4; O2SAT 96
[2021-03-09 12:00] VITALS: PULSE 60
--- NOTE | 2021-03-09 12:59 | HMH.DCSUM ---
General - General Admission date:: 03/08/21 Discharge date: 03/09/21 HPI HPI: She is a pleasant 50-year-old white female with known coronary artery disease, morbid obesity, hyperlipidemia, hypothyroid, with recent admission last week for angina. Was admitted overnight, heart cath performed with numerous drug-eluting stents deployed in a critically diseased ostial LAD and circumflex. Was monitored overnight and discharged home. Reports over the past several days she has had occasional twinges of pain in her chest. Presented to the ER today due to worsening chest pressure, pain, squeezing sensation substernal while sitting in a pew at [employer]. On arrival to the ER she was found to have elevation in her troponins. Cardiology was consulted, patient admitted to medicine for management overnight and monitoring on telemetry along with serial enzymes. On assessment after arriving to the floor, she states her pain is doing better after morphine but still present just to the lower level. Denies any nausea, shortness of breath, vomiting or diarrhea. Blood pressure well controlled less than 130/80. Remainder of labs unremarkable. A. History of cardiac catheterization in 2018 with mild coronary artery disease B. History of normal Lexiscan Myoview 04/2020 C. Left heart catheterization, 04/2020, GALE to ostial LAD with mild to moderate CAD of all 3 coronary vessels. D. Left heart cath, 03/05/21, GALE to critically diseased ostial LAD; GALE to ostial circumflex artery extending back into the left main artery reducing the stenosis to 10% Hospital Course Hospital Course: Patient was admitted to hospital. Troponin stabilized and in fact went down. Initial thought was possibly vasospasm from recent multiple stent placements. Cardiology evaluated her, felt this was the same, did not feel patient needed reevaluated. Did recommend starting isosorbide and pantoprazole. This is certainly reasonable. This was started, patient will be followed up in our office tomorrow and with cardiology very quickly. Objective Vital signs: Temp Pulse Resp BP Pulse Ox 97.6 F 68 20 120/60 96 03/09/21 11:34 03/09/21 11:34 03/09/21 11:34 03/09/21 11:34 03/09/21 11:34 no acute distress - *Routine HEENT Exam Head: Present: normocephalic Eye: Present: EOMI, PERRL ENT: Present: mucous membranes moist - *Routine Neck Exam Present: supple - *Routine Respiratory Exam Present: CTA bilaterally - *Routine Cardiovascular Exam Present: RRR - *Routine Abdominal Exam Present: soft, normoactive bowel sounds. Absent: tenderness - *Routine Extremities Exam Absent: cyanosis, clubbing, edema - *Routine Skin Exam Present: warm. Absent: rash - Detailed Eye Exam Eyelids: Bilateral normal inspection Results Labs on day of discharge: Labs from last 24 hours 03/08/21 03/08/21 03/08/21 21:42 20:19 15:10 WBC RBC Hgb Hct MCV MCH MCHC RDW Plt Count MPV Neut % (Auto) Lymph % (Auto) [place] % (Auto) Eos % (Auto) Baso % (Auto) Neut # (Auto) Lymph # (Auto) [place] # (Auto) Eos # (Auto) Baso # (Auto) PT INR APTT Sodium Potassium Chloride Carbon Dioxide Anion Gap BUN Creatinine Estimated Creat Clear Estimated GFR Est GFR ( Amer) Glucose POC Glucose 122 H Calcium Troponin I 0.13 H 0.14 H SARS-CoV-2 (PCR) Influenza A Untype (PCR) Influenza Type B (PCR) 03/08/21 03/08/21 03/08/21 13:30 13:30 13:30 WBC 10.4 RBC 5.71 H Hgb 13.6 Hct 51.8 H MCV 90.8 MCH 28.5 MCHC 31.4 L RDW 12.9 Plt Count 276 D MPV 7.2 L Neut % (Auto) 71.7 Lymph % (Auto) 21.7 [place] % (Auto) 4.5 Eos % (Auto) 1.6 Baso % (Auto) 0.6 Neut # (Auto) 7.5 Lymph # (Auto) 2.2 [place] # (Auto) 0.5 Eos # (Auto) 0.2 Baso # (Auto) 0.1 PT INR APTT Sod
== END 2021-03-09 13:50 | disposition home or self-care (01) ==
LOC: ER 11:45 → 2ND 13:32 → OB 22:35
PROVIDERS: Admitting Provider Internal Medicine Adolescent Medicine; Emergency Provider Student in an Organized Health Care Education/Training Program; PCP Internal Medicine Adolescent Medicine; Visit Provider Internal Medicine Adolescent Medicine
DX: I25.110 Atherosclerotic heart disease of native coronary artery with unstable angina pectoris (principal); E66.01 Morbid (severe) obesity due to excess calories; Z68.42 Body mass index [BMI] 45.0-49.9, adult; E03.9 Hypothyroidism, unspecified; I10 Essential (primary) hypertension; E78.5 Hyperlipidemia, unspecified; I25.10 Atherosclerotic heart disease of native coronary artery without angina pectoris; E11.9 Type 2 diabetes mellitus without complications; G43.909 Migraine, unspecified, not intractable, without status migrainosus; Z88.8 Allergy status to other drugs, medicaments and biological substances; Z79.899 Other long term (current) drug therapy; Z79.01 Long term (current) use of anticoagulants; Z20.822 Contact with and (suspected) exposure to COVID-19; Z95.5 Presence of coronary angioplasty implant and graft
CPT/HCPCS: 36415; 71045; 80048; 80053; 81001; 82962; 84484; 85025; 85610; 85730; 93005; 96374; 96375; 99284; C9803; G0378; J2405; U0003; U0005

== ENCOUNTER → 2021-03-10 10:06 | Outpatient (CLI) | payer BC, SELFPAY ==
[2021-03-10 10:46] LABS: Hematocrit 38.3 % (37.0-47.0); Hemoglobin 13.2 g/dL (12.2-16.2)
[2021-03-10 11:26] LABS: Blood Urea Nitrogen 18 mg/dl (7-17); Estimated Glomerular Filt Rate 76 ml/min (>60); GFR (African American) 92 ML/MIN (>60)
== END ==
PROVIDERS: Visit Provider Internal Medicine Adolescent Medicine
DX: D64.9 Anemia, unspecified (principal)
CPT/HCPCS: 36415; 82565; 84520; 85014; 85018

== ENCOUNTER → 2021-04-17 10:47 | Outpatient (CLI) | payer BC, SELFPAY | PROVIDERS: PCP Internal Medicine Adolescent Medicine; Visit Provider Internal Medicine Adolescent Medicine | DX: U07.1 COVID-19 (principal) | CPT/HCPCS: C9803; U0003; U0005 ==

== ENCOUNTER 2021-05-13 23:57 | Emergency (ER) | payer BC, SELFPAY ==
--- NOTE | 2021-05-13 23:54 | ECG_ITS ---
APPROVED REPORT Exam: Resting ECG HR:54 bpm ECG Measurements Heart Rate 54 AXES VT 174 P 52 QRSd 102 QRS 33 QT 430 T 38 QTc 415 Conclusion SINUS BRADYCARDIA LOW QRS VOLTAGE IN PRECORDIAL LEADS [QRS DEFLECTION < 1.0 mV IN CHEST LEADS] PATTERN CONSISTENT WITH PULMONARY DISEASE ABNORMAL ECG UNCONFIRMED REPORT Electronically signed by : Edward Joshi MD 05/14/2021 20:22:35
[2021-05-13 23:57] VITALS: BP 153/75; PULSE 56; RESP 22; TEMP 36.4; O2SAT 100; BMI 45.5
[2021-05-14] VITALS (7 sets, daily range): BP systolic 114–153; BP diastolic 53–76; PULSE 46–52; RESP 12–20; TEMP 36.7; O2SAT 94–99
--- NOTE | 2021-05-14 00:06 | XR_ITS ---
PROCEDURE INFORMATION: Exam: XR Chest Exam date and time: 05/14/2021 12:06 AM Age: 51 years old Clinical indication: Sternal or substernal pain; Prior surgery; Surgery type: Stents; Additional info: Chest pain TECHNIQUE: Imaging protocol: XR of the chest. Views: 2 views. Total images: 2 COMPARISON: CR XR CHEST PORTABLE 03/08/2021 12:06 PM FINDINGS: Lungs: Unremarkable. No consolidation. Pleural spaces: Unremarkable. No pleural effusion. No pneumothorax. Heart/Mediastinum: Unremarkable. No cardiomegaly. Question coronary artery stent on lateral radiograph. Bones/joints: Unremarkable. IMPRESSION: No acute findings.
--- NOTE | 2021-05-14 00:23 | HMH.EDCP ---
ED Disposition Clinical Impression: Chest pain Qualifiers: Chest pain type: precordial pain Qualified Code(s): R07.2 - Precordial pain CAD (coronary artery disease) Qualifiers: Coronary Disease-Associated Artery/Lesion type: [place] artery [place] vs. transplanted heart: [place] heart Associated angina: with stable angina Qualified Code(s): I25.118 - Atherosclerotic heart disease of [place] coronary artery with other forms of angina pectoris Disposition: Home, Self-Care Condition on Discharge: Good Instructions: DI for Chest Pain Additional Instructions: see card this am Referrals: Edward Joshi MD [Primary Care Provider] - - Critical Care Critical Care Time: No Attestation: On 05/13/21, the high probability of a clinically significant, sudden or life threatening deterioration of the following system(s) required my full and direct attention, intervention and personal management. The time I documented below is in addition to time spent performing reported procedures but includes the following listed in this critical care notation. Medical Decision Making - Medical Records Medical records reviewed: Yes: I reviewed the patient's medical records. - Brad Inquiry Pt receiving controlled substance: No Vital Signs: 05/13/21 23:57 05/14/21 00:30 05/14/21 01:00 Temperature 97.6 F Temperature Source Oral Pulse Rate 48 L 52 L Pulse Rate [Left Radial] 56 L Respiratory Rate 22 14 Blood Pressure 114/53 L 125/66 Blood Pressure [Right Arm] 153/75 H Blood Pressure Mean [Right Arm] 101 Blood Pressure Source [Right Arm] Automatic Cuff Blood Pressure Position [Right Arm] Sitting 02 Sat by Pulse Oximetry 100 98 95 Oxygen Delivery Method Nasal Cannula Oxygen Flow Rate (LPM) 2 05/14/21 02:00 05/14/21 02:30 05/14/21 03:00 Temperature Temperature Source Pulse Rate 46 L 50 L Pulse Rate [Left Radial] Respiratory Rate 14 13 12 Blood Pressure 153/76 H 147/73 H 118/59 L Blood Pressure [Right Arm] Blood Pressure Mean [Right Arm] Blood Pressure Source [Right Arm] Blood Pressure Position [Right Arm] 02 Sat by Pulse Oximetry 98 Oxygen Delivery Method Oxygen Flow Rate (LPM) 05/14/21 03:30 Temperature Temperature Source Pulse Rate 47 L Pulse Rate [Left Radial] Respiratory Rate 12 Blood Pressure 114/64 Blood Pressure [Right Arm] Blood Pressure Mean [Right Arm] Blood Pressure Source [Right Arm] Blood Pressure Position [Right Arm] 02 Sat by Pulse Oximetry 94 L Oxygen Delivery Method Oxygen Flow Rate (LPM) - Lab Data Lab results reviewed: Yes: I reviewed the patient's lab results. Lab Results 05/14/21 00:04: WBC 10.4, RBC 5.26, Hgb 15.0, Hct 46.2, MCV 87.9, MCH 28.6, MCHC 32.5, RDW 14.0, Plt Count 364, MPV 7.8, Neut % (Auto) 59.5, Lymph % (Auto) 32.3, [place] % (Auto) 4.6, Eos % (Auto) 2.6, Baso % (Auto) 0.9, Neut # (Auto) 6.2, Lymph # (Auto) 3.4, [place] # (Auto) 0.5, Eos # (Auto) 0.3, Baso # (Auto) 0.1 05/14/21 00:04: Sodium 140, Potassium 3.7, Chloride 99, Carbon Dioxide 32 H, Anion Gap 12.7, BUN 17, Creatinine 0.80, Estimated Creat Clear 70, Estimated GFR 76, Est GFR ( Amer) 92, Glucose 134 H, Calcium 9.7, Total Bilirubin 0.7, Direct Bilirubin 0.3, Conjugated Bilirubin 0.0, Indirect Bilirubin 0.4, Unconjugated Bilirubin 0.4, AST 41 H, ALT 30, Alkaline Phosphatase 121, Troponin I < 0.01, Total Protein 8.6 H, Albumin 4.7, Amylase 122 H, Lipase 360 H 05/14/21 00:04: Serum HCG, Qual Negative 05/14/21 03:06: Troponin I < 0.01 Result diagrams: 05/14/21 00:04 05/14/21 00:04 Orders (Tests/Meds): ED MEDICATIONS Generic Name Dose Route Start Last Admin Trade Name Freq PRN Reason Stop Dose Admin Sodium Chloride 1,000 mls @ 125 mls/hr 05/14/21 01:30 Sod Chlor 0.9% 1000ml Bag IV 05/14/21 09:29 .Q8H SANDRO Sodium Chloride 8 ml 05/14/21 01:53 Sodium Chloride 0.9% 10ml Vial IV 06/13/21 01:52 NEEDED PRN dilute pepcid Disconti
[2021-05-14 00:33] LABS: Basophils # 0.1 K/mm3 (0-0.2); Basophils % 0.9 % (0.1-2.0); Eosinophils # 0.3 K/mm3 (0.0-0.4); Eosinophils % 2.6 % (0.1-12.0); Hematocrit 46.2 % (37.0-47.0); Lymphocytes # 3.4 K/mm3 (0.7-4.5); Lymphocytes % 32.3 % (10-50); Mean Corpuscular HGB Conc 32.5 g/dL (31.8-35.4); Mean Corpuscular Hemoglobin 28.6 pg (27.0-31.2); Mean Corpuscular Volume 87.9 fl (81-99); Mean Platelet Volume 7.8 fl (7.4-10.4); Monocytes # 0.5 K/mm3 (0.1-1.0); Monocytes % 4.6 % (1.7-9.3); Neutrophils # 6.2 K/mm3 (1.8-7.8); Neutrophils % 59.5 % (37.0-80.0); Platelet Count 364 K/mm3 (142-424); Red Blood Count 5.26 M/mm3 (4.20-5.40); White Blood Count 10.4 K/mm3 (4.8-10.8)
[2021-05-14 00:41] LABS: HCG Qualitative, Serum Negative (Negative)
[2021-05-14 00:43] LABS: Alanine Aminotransferase 30 U/L (12-78); Albumin Level 4.7 g/dl (3.5-5.0); Alkaline Phosphatase 121 U/L (38-126); Amylase 122 U/L (30-110); Anion Gap 12.7 mEq/L (5-15); Aspartate Amino Transferase 41 U/L (14-36); Bilirubin,Direct 0.3 mg/dl (0.0-0.4); Bilirubin,Indirect 0.4 mg/dL (0.0-0.9); Bilirubin,Total 0.7 mg/dl (0.2-1.3); Bilirubin,Unconjugated 0.4 mg/dL (0.0-1.1); Blood Urea Nitrogen 17 mg/dl (7-17); Calcium 9.7 mg/dl (8.4-10.2); Carbon Dioxide 32 mmol/L (22.0-30.0); Chloride 99 mmol/L (98-107); Creatinine Clearance Estimated 70 mL/min (50-200); Estimated Glomerular Filt Rate 76 ml/min (>60); GFR (African American) 92 ML/MIN (>60); Glucose 134 mg/dl (74-100); Lipase 360 U/L (23-300); Potassium 3.7 mmoL/L (3.5-5.1); Sodium 140 mmol/L (136-145); Total Protein,Serum 8.6 g/dl (6.3-8.2)
[2021-05-14 00:58] LABS: Troponin I < 0.01 ng/ml (0.00-0.034)
--- NOTE | 2021-05-14 01:47 | CT_ITS ---
PROCEDURE INFORMATION: Exam: CT Abdomen And Pelvis With Contrast Exam date and time: 05/14/2021 1:47 AM Age: 51 years old Clinical indication: Abnormal findings; Abnormal lab test; Elevated lipase; Prior surgery; Surgery type: Cholecystectomy; Additional info: Elevated lipase TECHNIQUE: Imaging protocol: Computed tomography of the abdomen and pelvis with contrast. Total images: 343 Radiation optimization: All CT scans at this facility use at least one of these dose optimization techniques: automated exposure control; mA and/or kV adjustment per patient size (includes targeted exams where dose is matched to clinical indication); or iterative reconstruction. Contrast material: ISOVUE; Contrast volume: 75 ml; Contrast route: IV; COMPARISON: ABDPELW/O CT ABD PELVIS W/O CONTRAST 10/15/2016 12:04 AM FINDINGS: Diaphragm: A small sliding hiatal hernia is present. Liver: Decreased density of the liver adjacent to the falciform ligament is likely a benign perfusional variant. Hepatomegaly at 20 cm craniocaudal dimension. Gallbladder and bile ducts: Prior cholecystectomy noted. Pancreas: There is mild atrophy of the pancreatic parenchyma. Spleen: Incidental splenule with unremarkable spleen. Adrenal glands: Normal. No mass. Kidneys and ureters: Normal. No hydronephrosis. Stomach and bowel: Unremarkable. No obstruction. No mucosal thickening. Appendix: Normal appendix. Intraperitoneal space: Unremarkable. No free air. No significant fluid collection. Vasculature: Unremarkable. No abdominal aortic aneurysm. Lymph nodes: Unremarkable. No enlarged lymph nodes. Urinary bladder: Unremarkable as visualized. Reproductive: Unremarkable as visualized. Bones/joints: Moderate spinal degenerative changes. Facet joint degenerative changes are present. Multifocal neural foraminal stenosis, due to degeneration. Soft tissues: Unremarkable. IMPRESSION: 1. There is mild atrophy of the pancreatic parenchyma. No peripancreatic inflammation. 2. Normal appendix. 3. No acute intra-abdominal process identified.
[2021-05-14 03:34] LABS: Troponin I < 0.01 ng/ml (0.00-0.034)
--- NOTE | 2021-05-14 03:55 | PC.NURSE ---
speaking with at this time
== END 2021-05-14 04:05 | disposition home or self-care (01) ==
PROVIDERS: Emergency Provider Emergency Medicine; PCP Internal Medicine Adolescent Medicine
DX: R07.2 Precordial pain (principal); I25.118 Atherosclerotic heart disease of native coronary artery with other forms of angina pectoris; F41.8 Other specified anxiety disorders; E11.9 Type 2 diabetes mellitus without complications; K21.9 Gastro-esophageal reflux disease without esophagitis; E78.5 Hyperlipidemia, unspecified; I10 Essential (primary) hypertension; G43.709 Chronic migraine without aura, not intractable, without status migrainosus; Z79.899 Other long term (current) drug therapy
CPT/HCPCS: 71046; 74177; 80048; 80076; 82150; 83690; 84484; 84703; 85025; 93005; 96365; 96375; 99283; 99284; Q9967

== ENCOUNTER 2021-06-12 06:10 | Emergency (ER) | payer BC, SELFPAY ==
[2021-06-12] VITALS (7 sets, daily range): BP systolic 102–115; BP diastolic 54–62; PULSE 45–58; RESP 14–20; TEMP 36.6–36.8; O2SAT 94–98; BMI 45.5
--- NOTE | 2021-06-12 06:11 | ECG_ITS ---
APPROVED REPORT Exam: Resting ECG HR:50 bpm ECG Measurements Heart Rate 50 AXES HI 191 P 42 QRSd 109 QRS 74 QT 442 T 2 QTc 415 Conclusion SINUS BRADYCARDIA INDETERMINATE AXIS LOW QRS VOLTAGE IN PRECORDIAL LEADS [QRS DEFLECTION < 1.0 mV IN CHEST LEADS] BORDERLINE ECG UNCONFIRMED REPORT Electronically signed by : Edward Joshi MD 06/13/2021 12:32:56
--- NOTE | 2021-06-12 06:18 | XR_ITS ---
PROCEDURE INFORMATION: Exam: XR Chest Exam date and time: 06/12/2021 6:20 AM Age: 51 years old Clinical indication: Sternal or substernal pain; Additional info: Chest pain TECHNIQUE: Imaging protocol: XR of the chest. Views: 2 views. COMPARISON: CR XR CHEST 2V 05/14/2021 12:14 AM FINDINGS: Tubes, catheters and devices: Surgical clips, RUQ. Lungs: Unremarkable. No consolidation. Pleural spaces: Unremarkable. No pleural effusion. No pneumothorax. Heart/Mediastinum: Unremarkable. No cardiomegaly. Bones/joints: Unremarkable. IMPRESSION: No acute process.
[2021-06-12 06:30] LABS: Basophils # 0.2 K/mm3 (0-0.2); Basophils % 2.5 % (0.1-2.0); Eosinophils # 0.4 K/mm3 (0.0-0.4); Eosinophils % 4.1 % (0.1-12.0); Hematocrit 45.7 % (37.0-47.0); Hemoglobin 14.7 g/dL (12.2-16.2); Lymphocytes # 3.1 K/mm3 (0.7-4.5); Lymphocytes % 35.4 % (10-50); Mean Corpuscular HGB Conc 32.2 g/dL (31.8-35.4); Mean Corpuscular Hemoglobin 29.1 pg (27.0-31.2); Mean Corpuscular Volume 90.3 fl (81-99); Mean Platelet Volume 7.9 fl (7.4-10.4); Monocytes # 0.4 K/mm3 (0.1-1.0); Monocytes % 4.6 % (1.7-9.3); Neutrophils # 4.6 K/mm3 (1.8-7.8); Neutrophils % 53.4 % (37.0-80.0); Platelet Count 305 K/mm3 (142-424); Red Blood Count 5.06 M/mm3 (4.20-5.40); Red Cell Distribution Width 15.4 % (11.5-17.5); White Blood Count 8.7 K/mm3 (4.8-10.8)
[2021-06-12 06:31] LABS: Coronavirus 19, PCR Not Detected (NotDetected); Influenza A, PCR Not Detected (NotDetected); Influenza B, PCR Not Detected (NotDetected)
[2021-06-12 06:34] LABS: Anion Gap 9.9 mEq/L (5-15); Blood Urea Nitrogen 21 mg/dl (7-17); Calcium 9.3 mg/dl (8.4-10.2); Carbon Dioxide 29 mmol/L (22.0-30.0); Chloride 103 mmol/L (98-107); Creatinine Clearance Estimated 62 mL/min (50-200); Estimated Glomerular Filt Rate 66 ml/min (>60); GFR (African American) 80 ML/MIN (>60); Glucose 99 mg/dl (74-100); HDL Cholesterol 64 mg/dl (40-60); Potassium 3.9 mmoL/L (3.5-5.1); Sodium 138 mmol/L (136-145); Triglycerides 165 mg/dl (30-150); VLDL Cholesterol 33 mg/dL (0-40)
[2021-06-12 06:45] LABS: Direct LDL Cholesterol 178.94 mg/dL (100-129)
[2021-06-12 06:53] LABS: Procalcitonin 0.064 ng/mL (0.0-2.0)
[2021-06-12 06:54] LABS: Troponin I < 0.01 ng/ml (0.00-0.034)
[2021-06-12 06:55] LABS: Alanine Aminotransferase 50 U/L (12-78); Albumin Level 4.6 g/dl (3.5-5.0); Alkaline Phosphatase 125 U/L (38-126); Aspartate Amino Transferase 43 U/L (14-36); Bilirubin,Direct 0.3 mg/dl (0.0-0.4); Bilirubin,Indirect 0.8 mg/dL (0.0-0.9); Bilirubin,Total 1.1 mg/dl (0.2-1.3); Bilirubin,Unconjugated 0.8 mg/dL (0.0-1.1); Total Protein,Serum 7.8 g/dl (6.3-8.2)
[2021-06-12 06:56] LABS: Lipase 92 U/L (23-300)
[2021-06-12 07:01] LABS: C-Reactive Protein 5.5 mg/L (0-4)
[2021-06-12 07:04] LABS: Chol/HDL Ratio 5.1 (1-3.5); Cholesterol 328 mg/dl (140-200)
[2021-06-12 07:12] LABS: Erythrocyte Sedimentation Rate 87 mm/hr (0-20)
--- NOTE | 2021-06-12 07:38 | PC.NURSE ---
Pt to bathroom at this time.
[2021-06-12 07:56] LABS: Microscopic, Urine URINE MICROSCOPIC (MICROSCOPIC)
[2021-06-12 07:58] LABS: Appearance,Urine CLEAR (Clear); Bilirubin,Urine Negative (Negative); Blood, Urine Negative (Negative); Color,Urine YELLOW (Yellow); Glucose,Urine (UA) Negative (Negative); Ketones,Urine Negative (Negative); Leukocyte Esterase,Urine Negative (Negative); Nitrate,Urine Negative (Negative); PH,Urine 6.5 (5.0-8.5); Protein,Urine Negative (Negative); Specific Gravity, Urine <= 1.005 (1.005-1.030); Urobilinogen,Urine 0.2 EU/dl (0.2)
[2021-06-12 08:06] LABS: Bacteria,Urine 1+ /lpf; WBC,Urine Occasional #/hpf (0-3)
--- NOTE | 2021-06-12 09:10 | HMH.EDGENADL ---
ED Disposition Clinical Impression: Chest pain Qualifiers: Chest pain type: unspecified Qualified Code(s): R07.9 - Chest pain, unspecified Disposition: Home, Self-Care Condition on Discharge: Good Referrals: Rodrigue Lanier MD [Primary Care Provider] - - Critical Care Critical Care Time: No Attestation: On 06/12/21, the high probability of a clinically significant, sudden or life threatening deterioration of the following system(s) required my full and direct attention, intervention and personal management. The time I documented below is in addition to time spent performing reported procedures but includes the following listed in this critical care notation. Medical Decision Making - Medical Records Medical records reviewed: Yes: I reviewed the patient's medical records. - Brad Inquiry Pt receiving controlled substance: No Vital Signs: 06/12/21 06:11 06/12/21 06:18 06/12/21 06:30 Temperature 97.8 F Temperature Source Oral Pulse Rate 58 L 45 L Pulse Rate [Right Radial] 58 L Respiratory Rate 20 Blood Pressure 113/62 106/55 L Blood Pressure [Right Arm] 113/62 Blood Pressure Mean [Right Arm] 79 Blood Pressure Source [Right Arm] Automatic Cuff Blood Pressure Position [Right Arm] Sitting 02 Sat by Pulse Oximetry 97 97 94 L Oxygen Delivery Method Room Air Room Air Room Air 06/12/21 07:00 06/12/21 07:30 06/12/21 08:00 Temperature Temperature Source Pulse Rate 57 L 58 L 58 L Pulse Rate [Right Radial] Respiratory Rate 16 15 16 Blood Pressure 102/56 L 109/54 L 113/62 Blood Pressure [Right Arm] Blood Pressure Mean [Right Arm] Blood Pressure Source [Right Arm] Blood Pressure Position [Right Arm] 02 Sat by Pulse Oximetry 98 98 97 Oxygen Delivery Method - Lab Data Lab results reviewed: Yes: I reviewed the patient's lab results. Lab Results 06/12/21 06:18: WBC 8.7, RBC 5.06, Hgb 14.7, Hct 45.7, MCV 90.3, MCH 29.1, MCHC 32.2, RDW 15.4, Plt Count 305, MPV 7.9, Neut % (Auto) 53.4, Lymph % (Auto) 35.4, [place] % (Auto) 4.6, Eos % (Auto) 4.1, Baso % (Auto) 2.5 H, Neut # (Auto) 4.6, Lymph # (Auto) 3.1, [place] # (Auto) 0.4, Eos # (Auto) 0.4, Baso # (Auto) 0.2 06/12/21 06:18: Troponin I < 0.01, Procalcitonin 0.064 06/12/21 06:18: Sodium 138, Potassium 3.9, Chloride 103, Carbon Dioxide 29, Anion Gap 9.9, BUN 21 H, Creatinine 0.90, Estimated Creat Clear 62, Estimated GFR 66, Est GFR ( Amer) 80, Glucose 99, Calcium 9.3, Triglycerides 165 H, Cholesterol 328 H, LDL Cholesterol Direct 178.94 H, VLDL Cholesterol 33, HDL Cholesterol 64 H, Cholesterol/HDL Ratio 5.1 H 06/12/21 06:18: Total Bilirubin 1.1, Direct Bilirubin 0.3, Conjugated Bilirubin 0.0, Indirect Bilirubin 0.8, Unconjugated Bilirubin 0.8, AST 43 H, ALT 50, Alkaline Phosphatase 125, C-Reactive Protein 5.5 H, Total Protein 7.8, Albumin 4.6 06/12/21 06:18: ESR 87 H 06/12/21 06:18: Lipase 92 06/12/21 06:24: SARS-CoV-2 (PCR) Not detected, Influenza A Untype (PCR) Not detected, Influenza Type B (PCR) Not detected 06/12/21 07:48: Urine Color Yellow, Urine Appearance Clear, Urine pH 6.5, Ur Specific [place] <= 1.005, Urine Protein Negative, Urine Glucose (UA) Negative, Urine Ketones Negative, Urine Blood Negative, Urine Nitrate Negative, Urine Bilirubin Negative, Urine Urobilinogen 0.2, Ur Leukocyte Esterase Negative, Urine RBC None, Urine WBC Occasional, Ur Squamous Epith Cells 3-5, Urine Bacteria 1+ Result diagrams: 06/12/21 06:18 06/12/21 06:18 Orders (Tests/Meds): ED MEDICATIONS Discontinued Medications Generic Name Dose Route Start Last Admin Trade Name Guilhermeq PRN Reason Stop Dose Admin Aspirin 243 mg 06/12/21 06:20 06/12/21 06:25 Aspirin 81mg Chewable Tablet PO 06/12/21 06:21 243 mg ONCE ONE Administration Sodium Chloride 1,000 mls @ 999 mls/hr 06/12/21 06:30 06/12/21 06:24 Sod Chlor 0.9% 1000ml Bag IV 06/12/21 07:30 999 mls/hr .Q1H1M SANDRO Administration Nitroglycerin 0.4 mg 06/12/21 0
== END 2021-06-12 09:38 | disposition home or self-care (01) ==
PROVIDERS: Emergency Provider Emergency Medicine; PCP Internal Medicine Adolescent Medicine
DX: R07.9 Chest pain, unspecified (principal); N64.4 Mastodynia; R20.2 Paresthesia of skin; Z20.822 Contact with and (suspected) exposure to COVID-19; I10 Essential (primary) hypertension; I25.10 Atherosclerotic heart disease of native coronary artery without angina pectoris; K21.9 Gastro-esophageal reflux disease without esophagitis; E78.5 Hyperlipidemia, unspecified; Q21.9 Congenital malformation of cardiac septum, unspecified; E89.0 Postprocedural hypothyroidism; G43.909 Migraine, unspecified, not intractable, without status migrainosus; J45.909 Unspecified asthma, uncomplicated; F32.A Depression, unspecified; F41.9 Anxiety disorder, unspecified; Z79.02 Long term (current) use of antithrombotics/antiplatelets; Z79.82 Long term (current) use of aspirin; Z79.899 Other long term (current) drug therapy; Z88.0 Allergy status to penicillin; Z88.5 Allergy status to narcotic agent; Z88.8 Allergy status to other drugs, medicaments and biological substances; Z91.041 Radiographic dye allergy status; Z95.5 Presence of coronary angioplasty implant and graft; Z82.49 Family history of ischemic heart disease and other diseases of the circulatory system; Z80.9 Family history of malignant neoplasm, unspecified; Z83.3 Family history of diabetes mellitus; Z83.438 Family history of other disorder of lipoprotein metabolism and other lipidemia; Z84.1 Family history of disorders of kidney and ureter
CPT/HCPCS: 71046; 80048; 80061; 80076; 81001; 83690; 84145; 84484; 85025; 85651; 86140; 93005; 96360; 96365; 99285; C9803; U0003; U0005

== ENCOUNTER → 2021-07-27 13:10 | Outpatient (CLI) | payer BC, SELFPAY ==
--- NOTE | 2021-07-27 13:17 | XR_ITS ---
FINAL REPORT CLINICAL HISTORY: LT KNEE PAIN, anterior knee pain, fall on escalator FINDINGS: LEFT KNEE: Three views of the left knee were obtained. There is no acute fracture or dislocation. There is mild patellofemoral degenerative change. There is a small joint effusion. Soft tissues are unremarkable. IMPRESSION: Small joint effusion with no acute bony abnormality. Reviewed, Interpreted and Dictated by Ger Huang III, MD Transcribed by Marbin Wood Authenticated by Ger Huang III, MD on 07/27/2021 02:47:04 PM [facility]
== END ==
PROVIDERS: PCP Internal Medicine Adolescent Medicine; Visit Provider Internal Medicine Adolescent Medicine
DX: M25.562 Pain in left knee (principal)
CPT/HCPCS: 73562

== ENCOUNTER 2021-09-08 18:57 | Emergency (ER) | payer BC, SELFPAY ==
[2021-09-08 19:19] VITALS: BP 146/65; PULSE 50; RESP 17; TEMP 37; O2SAT 98; BMI 44.6
--- NOTE | 2021-09-08 19:31 | HMH.EDUTC ---
[facility] Disposition Clinical Impression: Knee pain, left Qualifiers: Chronicity: unspecified Qualified Code(s): M25.562 - Pain in left knee Disposition: Home, Self-Care Condition on Discharge: Good Instructions: DI for Chronic Pain -- Adult, DI for Knee Pain Additional Instructions: *weight bearing as tolerated *RICE, Rest the extremity, Ice 15-20 minutes 3-4 times daily, Compress- wear the tello wrap as discussed as much as possible to help reduce swelling and pain, Elevate the extremity when at rest *Tello wrap is for support and help control swelling, use it except in the shower. Be sure that is not to tight but not to loose either *Elevate when resting *Tylenol may help with pain Immediately follow up with your family doctor for new or worsening of symptoms, or no noticeable improvement over the next 3-5 days Referrals: Rodrigue Lanier MD [Primary Care Provider] - As needed Time of Disposition: 19:46 Medical Decision Making - Brad Inquiry Pt receiving controlled substance: No Brad was queried for this patient: No Vital Signs: 09/08/21 19:19 09/08/21 19:55 Temperature 98.6 F 98.6 F Temperature Source Oral Pulse Rate 50 L Pulse Rate [Left Radial] 50 L Respiratory Rate 17 17 Blood Pressure 146/65 H Blood Pressure [Right Arm] 146/65 H Blood Pressure Mean [Right Arm] 92 02 Sat by Pulse Oximetry 98 Orders (Tests/Meds): ED MEDICATIONS Discontinued Medications Generic Name Dose Route Start Last Admin Trade Name Guilhermeq PRN Reason Stop Dose Admin Ketorolac Tromethamine 30 mg 09/08/21 19:45 09/08/21 19:48 Ketorolac 60mg/2ml Vial IM 09/08/21 19:46 30 mg ONCE ONE Administration Medical Decision Narrative: Patient states that she has taken Toradol in the past with last dose being 06/12/21 per medication all visits Discussed with pharmacy will do one time dose for pain [facility] HPI - General Stated complaint: L knee pain Time Seen by Provider: 09/08/21 19:31 Description of Symptoms (Recalled from Triage Doc. by RN): patient comes in today for left knee pain. pain begn tuesday. patient states that she can not bear weight on it, it is throbbing. patient went to see pcp on tuesday and she was given a steroid shot HEENT Symptoms (Recalled from RN notes): No Resp Symptoms (Recalled from RN notes): No Skin Symptoms (Recalled from RN notes): No MS Symptoms (Recalled from RN notes): Yes Functional Status (Recalled from RN notes): wnl - History of Present Illness Provider Complaint: Patient states that she has been having problems with her left knee for several months now since she fell from psychiatric State that she has had fluid drawn off the knee by Orthopedics in [place] and seen her PCP on Tuesday and he give her a shot in the knee but it hasnt helped much States that today she was still having pain and she called the Physician senior international tax manager and they told her to come in and get it checked so she came in wanting to see if she could get something for pain - Related Data Home Medications Medication Instructions Recorded Confirmed aspirin 81 mg tablet,delayed 81 mg PO DAILY 30 Days #30 09/05/17 05/14/21 release hydroxyzine pamoate 25 mg capsule 25 mg PO BIDP PRN cap 05/14/20 05/14/21 topiramate 100 mg tablet 100 mg PO HS tab 05/14/20 05/14/21 Atorvastatin Calcium [Lipitor 40mg 40 mg PO DAILY 03/04/21 05/14/21 Tab] Citalopram Hydrobromide 20 mg PO HS 03/04/21 05/14/21 [Citalopram 20mg Tablet] Clopidogrel Bisulfate [Plavix] 75 mg PO DAILY 03/04/21 05/14/21 Diclofenac Sodium [Voltaren 1 applicatio TP NEEDED PRN 03/04/21 05/14/21 Arthritis Pain] Ferrous Sulfate 325 mg PO HS 03/04/21 05/14/21 Fexofenadine HCl [Allergy Relief] 180 mg PO DAILY 03/04/21 05/14/21 Levothyroxine Sodium [Euthyrox] 175 mcg PO DAILY 03/04/21 05/14/21 bisoproloL fumarate [Bisoprolol 5 mg PO DAILY 03/04/21 05/14/21 Fumarate] Furosemide [Lasix 40mg tablet] 40 mg PO DAILY 03/08/21 05/14/21 Nitroglycerin 0.4 m
[2021-09-08 19:55] VITALS: BP 146/65; PULSE 50; RESP 17; TEMP 37
== END 2021-09-08 19:58 | disposition home or self-care (01) ==
PROVIDERS: Emergency Provider Nurse Practitioner; PCP Internal Medicine Adolescent Medicine
DX: M25.562 Pain in left knee (principal); G89.29 Other chronic pain; I10 Essential (primary) hypertension; I25.10 Atherosclerotic heart disease of native coronary artery without angina pectoris; K21.9 Gastro-esophageal reflux disease without esophagitis; E78.5 Hyperlipidemia, unspecified; E11.9 Type 2 diabetes mellitus without complications; Z88.5 Allergy status to narcotic agent; G43.909 Migraine, unspecified, not intractable, without status migrainosus; Q24.9 Congenital malformation of heart, unspecified; J45.909 Unspecified asthma, uncomplicated; F32.A Depression, unspecified; F41.9 Anxiety disorder, unspecified; Z79.02 Long term (current) use of antithrombotics/antiplatelets; Z79.82 Long term (current) use of aspirin; Z79.899 Other long term (current) drug therapy; Z88.0 Allergy status to penicillin; Z91.041 Radiographic dye allergy status; Z95.5 Presence of coronary angioplasty implant and graft; Z82.49 Family history of ischemic heart disease and other diseases of the circulatory system; Z83.438 Family history of other disorder of lipoprotein metabolism and other lipidemia; Z84.1 Family history of disorders of kidney and ureter; Z83.3 Family history of diabetes mellitus; Z80.9 Family history of malignant neoplasm, unspecified
CPT/HCPCS: 96372; 99213; G0463

== ENCOUNTER 2022-01-01 13:00 | Outpatient (RCR) | payer BC, SELFPAY | END 2022-01-01 13:05 | disposition home or self-care (01) | LOC: PT 13:00 | PROVIDERS: PCP Internal Medicine Adolescent Medicine; Visit Provider Anesthesiology | DX: M17.0 Bilateral primary osteoarthritis of knee (principal) | CPT/HCPCS: 97010; 97014; 97110; 97163; G0283 ==

== ENCOUNTER → 2022-03-23 10:01 | Outpatient (CLI) | payer BC, SELFPAY ==
--- NOTE | 2022-03-23 10:07 | XR_ITS ---
FINAL REPORT CLINICAL HISTORY: bilateral anterior knee pain, arthritis behind patellas, occasional swelling COMPARISON: October 26, 2020 FINDINGS: RIGHT KNEE 3 views of the right knee were obtained. There is no acute fracture or dislocation. Visualized joint spaces are normally aligned. There are mild degenerative changes of the patellofemoral joint. A small joint effusion is seen. IMPRESSION: Mild degenerative change of the patellofemoral joint and a small joint effusion with no acute bony abnormality. Reviewed, Interpreted and Dictated by Ger Huang III, MD Transcribed by Sheryl Trujillo Authenticated and [facility]
--- NOTE | 2022-03-23 10:07 | XR_ITS ---
FINAL REPORT CLINICAL HISTORY: bilateral anterior knee pain, arthritis behind patellas, occasional swelling COMPARISON: July 27, 2021 FINDINGS: LEFT KNEE 3 views of the left knee were obtained. There is no acute fracture or dislocation. Visualized joint spaces are normally aligned. There are mild degenerative changes of the patellofemoral joint. A small joint effusion is seen. IMPRESSION: Mild degenerative change of the patellofemoral joint and a small joint effusion with no acute bony abnormality. Reviewed, Interpreted and Dictated by Ger Huang III, MD Transcribed by Sheryl Trujillo Authenticated and [facility]
== END ==
PROVIDERS: PCP Internal Medicine Adolescent Medicine; Visit Provider Orthopaedic Surgery
DX: M25.561 Pain in right knee (principal); M25.562 Pain in left knee
CPT/HCPCS: 73562

== ENCOUNTER → 2022-03-26 08:36 | Outpatient (CLI) | payer BC, SELFPAY ==
--- NOTE | 2022-03-26 08:36 | MR_ITS ---
FINAL REPORT CLINICAL HISTORY: effusion, left knee pain and swelling, fall june 2021 FINDINGS: Multiplanar MR imaging of the left knee was performed without contrast. There is diffuse medial meniscal degeneration with a tear of the posterior root. The lateral meniscus is intact. The anterior and posterior cruciate ligaments are intact. The medial collateral ligament and lateral ligamentous complex are intact. The patellar and quadriceps tendons are intact. There is no evidence of fracture. There is distal patellar tendinitis. There is severe patellar chondromalacia with multiple subchondral cysts. Edema is seen in the superior aspect of the Hoffa's fat pad. Small joint effusion is seen. The musculature is intact. No soft tissue mass or cyst is identified. IMPRESSION: Tear posterior root medial meniscus. 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 Distal patellar tendinitis. Reviewed, Interpreted and Dictated by Ger Huang III, MD Transcribed by Madeline Acuna Authenticated and [facility]
== END ==
PROVIDERS: PCP Internal Medicine Adolescent Medicine; Visit Provider Orthopaedic Surgery
DX: M25.562 Pain in left knee (principal)
CPT/HCPCS: 73721

== ENCOUNTER → 2022-04-14 10:47 | Outpatient (CLI) | payer BC, SELFPAY ==
[2022-04-14 11:02] LABS: Microscopic, Urine URINE MICROSCOPIC (MICROSCOPIC)
--- NOTE | 2022-04-14 11:25 | XR_ITS ---
FINAL REPORT CLINICAL HISTORY: preop COMPARISON: 06/12/2021 FINDINGS: PA and lateral views of the chest were obtained. The cardiac and mediastinal silhouettes are within normal limits. The lungs are clear. There is no pleural effusion or pneumothorax. No acute osseous abnormality is identified. IMPRESSION: No radiographic evidence of acute cardiac or pulmonary disease. Reviewed, Interpreted and Dictated by Aliya Najera MD Transcribed by Tamela García Authenticated and [facility][1]
[2022-04-14 11:37] LABS: Appearance,Urine CLEAR (Clear); Bilirubin,Urine Negative (Negative); Blood, Urine Negative (Negative); Color,Urine YELLOW (Yellow); Glucose,Urine (UA) Negative (Negative); Ketones,Urine Negative (Negative); Leukocyte Esterase,Urine Negative (Negative); Nitrate,Urine Negative (Negative); Protein,Urine Negative (Negative); Specific Gravity, Urine 1.015 (1.005-1.030); Urobilinogen,Urine 0.2 EU/dl (0.2)
[2022-04-14 11:45] LABS: Basophils # 0.1 K/mm3 (0-0.2); Basophils % 1.3 % (0.1-2.0); Eosinophils # 0.2 K/mm3 (0.0-0.4); Eosinophils % 2.6 % (0.1-12.0); Hematocrit 43.4 % (37.0-47.0); Hemoglobin 13.7 g/dL (12.2-16.2); Lymphocytes % 26.9 % (10-50); Mean Corpuscular HGB Conc 31.6 g/dL (31.8-35.4); Mean Corpuscular Hemoglobin 27.7 pg (27.0-31.2); Mean Corpuscular Volume 87.7 fl (81-99); Mean Platelet Volume 7.8 fl (7.4-10.4); Monocytes # 0.2 K/mm3 (0.1-1.0); Neutrophils # 4.9 K/mm3 (1.8-7.8); Neutrophils % 66.2 % (37.0-80.0); Platelet Count 293 K/mm3 (142-424); Red Blood Count 4.95 M/mm3 (4.20-5.40); Red Cell Distribution Width 14.1 % (11.5-17.5); White Blood Count 7.4 K/mm3 (4.8-10.8)
[2022-04-14 11:48] LABS: Bacteria,Urine Trace /lpf; Squamous Epithelial Cell,Urine Occasional #/hpf (0-5); WBC,Urine Occasional #/hpf (0-3)
[2022-04-14 12:46] LABS: Anion Gap 12.3 mEq/L (5-15); Bilirubin,Total 0.7 mg/dl (0.2-1.3); Blood Urea Nitrogen 15 mg/dl (7-17); Calcium 9.5 mg/dl (8.4-10.2); Carbon Dioxide 30 mmol/L (22.0-30.0); Chloride 105 mmol/L (98-107); Estimated Glomerular Filt Rate 66 ml/min (>60); GFR (African American) 80 ML/MIN (>60); Glucose 100 mg/dl (74-100); Potassium 4.3 mmoL/L (3.5-5.1); Sodium 143 mmol/L (136-145)
[2022-04-14 12:47] LABS: Albumin Level 4.3 g/dl (3.5-5.0); Albumin/Globulin Ratio 1.3 (1.1-1.8); Alkaline Phosphatase 113 U/L (38-126); Aspartate Amino Transferase 27 U/L (14-36); Globulin 3.3 g/dL (1.3-3.2); Total Protein,Serum 7.6 g/dl (6.3-8.2)
[2022-04-14 12:48] LABS: Alanine Aminotransferase 25 U/L (12-78)
== END ==
PROVIDERS: PCP Internal Medicine Adolescent Medicine; Visit Provider Orthopaedic Surgery
DX: Z01.818 Encounter for other preprocedural examination (principal)
CPT/HCPCS: 36415; 71046; 80053; 81001; 85025

== ENCOUNTER 2022-04-19 07:09 | Day surgery (SDC) | payer BC, SELFPAY ==
[2022-04-15 11:06] VITALS: BMI 49.6
[2022-04-19] VITALS (13 sets, daily range): BP systolic 109–164; BP diastolic 51–100; PULSE 71–88; RESP 17–74; TEMP 36.1–37.1; O2SAT 90–96
--- NOTE | 2022-04-19 07:24 | ECG_ITS ---
APPROVED REPORT Exam: Resting ECG HR:75 bpm ECG Measurements Heart Rate 75 AXES IN 166 P 28 QRSd 107 QRS -4 QT 373 T 1 QTc 402 Conclusion SINUS RHYTHM NORMAL ECG UNCONFIRMED REPORT Electronically signed by : Edward Joshi MD 04/19/2022 20:13:16
--- NOTE | 2022-04-19 09:08 | P.PN_ITS ---
[facility] Disclaimer: The information contained in this section may have been updated after the patient was seen, as this information can be updated by other users. Medical History Allergies Anxiety Arthritis CAD (coronary artery disease) Coughing Depression Gallbladder disease History of COVID-19 Hyperlipidemia Hypertension Hypothyroid Migraine Sinus headache Surgical History H/O tubal ligation History of cholecystectomy History of surgery Family History Other Cancer Diabetes Social History Smoking Status: Never smoker alcohol intake: never substance use type: denies use current occupational status: unemployed Travel in the last 8 weeks: None household members: spouse and children housing: house current occupational exposures/hazards: No caffeine: No [facility] Anesthesia Checklist Patient Identification Patient Identification: Arm Band Structural Data Admitted From: Home Planned Operative Procedure/s: Left Knee Arthroscopy, Parial Medial Meniscectomy Consent for Planned Operative Procedure(s) Verified: Yes Verified Documents: Surgical Consent, History and Physical and Cardiac Clearance NPO Status Verified Time NPO: 00:00 Additional verifications Anesthesia Reactions: No Hx Blood Transfusions: No Blood Transfusion Reaction: No Airway Assessment C-Spine Mobility Assessed: Yes TMJ Mobility Assessed: Yes Dentition: Poor Dentition Neurological Assessment Level of Consciousness: Awake and Alert Anesthesia Plan Anesthesia Risk discussed: Yes Anesthesia Plan: Verified ASA Class: III Anesthesia Type: General
--- NOTE | 2022-04-19 10:11 | EXP.ANES.I ---
[facility] Anesthesia Record Part I Anesthesia Record I Intake, IV Amount: 800 Estimated blood loss (mL): 5 Urine output (mL): 0 Blood Products used (#): none Blood Pressure: 113/100 SaO2: 92 Pulse Rate: 88 Respiratory Rate: 18 Temperature: 97.9 F Patient is:: Drowsy Stable to PACU at:: 10:08
--- NOTE | 2022-04-19 10:13 | P.OP_ITS ---
Date of procedure: 04/19/22 Pre-op Diagnosis:: Left knee medial meniscus tear Post-op Diagnosis:: Left knee medial meniscus tear posterior horn and meniscal root Procedure performed:: Left knee arthroscopy with partial medial meniscectomy Surgeon:: Chema Fragoso DO REROLLING MACHINE OPERATOR:: Donato Veliz Anesthesia: GETA Estimated blood loss (mL): 0 Operative findings:: Left knee posterior horn medial meniscus tear along with meniscal root involvement. Most anterior aspect of the meniscal root with intact tissue posteriorly spreading to the posterior horn of the medial meniscus Grade 3 4 chondromalacia medial femoral condyle Grade III chondromalacia patella Operative note:: Patient is identified preoperatively left knee marked yes my initials. Transferred operative suite. Placed upon the operating bed. General anesthesia ministered airway secured. Left lower extremity prepped draped normal sterile fashion. Once prepped and draped final operative timeout performed to identify proper patient procedure and extremity. Everyone involved the case agreed. No counter indication beginning. Did receive preoperative antibiotics. Marking pen was used to sony bony landmarks of the knee and standard portal sites. Esmarch was used to exsanguinate extremity. Pneumatic tourniquet inflated to 300 mmHg. Skin knife was used to incise standard anterior lateral portal. Blunt with trocar was placed in the patellofemoral joint exchange with a camera. Diagnostic arthroscopy began. I swept directly into the medial joint line where the anterior medial portal was made under direct visualization with the help of an 18-gauge spinal needle. This was exchanged with a probe there is tearing of the posterior horn and extending into the meniscal root posterior horn medial meniscus there was some intact tissue posteriorly at the root and it was not completely detached. Therefore not amenable to repair partial medial meniscectomy was performed back to stable rim. This was probed and found to be stable. Attention was then brought to the intercondylar notch where the ACL was seen and intact. Attention was brought into the lateral joint line the lateral cartilage was intact lateral meniscus is intact with a pristine joint line. Attention was brought back into the patellofemoral joint was grade III chondromalacia of the patella and some free hanging cartilage in the undersurface of patella which was lightly debrided with a sucker shaver. Attention was brought back into the medial joint line and the medial joint line there was fraying loose cartilage on the medial femoral condyle adjacent to meniscal tear this loose cartilage was lightly debrided with the sucker shaver. No further pathology was seen in the cameras removed the joint was drained local anesthesia infiltrated to the portal sites. Skin closed with nylon stitch. Sterile dressing placed from toe to thigh. Patient waken anesthesia taken recovery stable condition. Condition: stable Disposition: PACU Complications:: None apparent
--- NOTE | 2022-04-19 13:14 | P.PNANES_ITS ---
[facility] Anesthesia Record Part II Anesthesia Record Part II Discharge Time: 10:38 Destination: Surgical Day Care (OP Surgery) PACU nurse assessment reviewed?: Yes Patient Condition:: Good Anesthesia Complications:: None Swallowing reflex intact?: Yes Cyanosis?: No Blood Pressure: 140/51 Pulse Rate: 84 Temperature: 98.8 F Mental Status: Alert & Oriented Pain level:: 0 Nausea and/or vomitting:: None Intake, IV Amount: 0
== END 2022-04-19 11:35 | disposition home or self-care (01) ==
PROVIDERS: PCP Internal Medicine Adolescent Medicine; Visit Provider Orthopaedic Surgery
PROC: (CPT 29870; principal; 2022-04-19 08:45)
DX: M23.222 Derangement of posterior horn of medial meniscus due to old tear or injury, left knee (principal); M17.12 Unilateral primary osteoarthritis, left knee; I10 Essential (primary) hypertension; I25.118 Atherosclerotic heart disease of native coronary artery with other forms of angina pectoris; E78.5 Hyperlipidemia, unspecified; E66.9 Obesity, unspecified; Z68.42 Body mass index [BMI] 45.0-49.9, adult; Z79.899 Other long term (current) drug therapy; Z79.02 Long term (current) use of antithrombotics/antiplatelets
CPT/HCPCS: 29881; 93005; 96374; J2405

== ENCOUNTER 2022-05-12 13:00 | Outpatient (RCR) | payer BC, SELFPAY ==
--- NOTE | 2022-05-07 16:00 | HMH.PTOPEV ---
PT Outpatient Evaluation Rehab PT Outpatient Evaluation Start: 05/07/22 15:00 Freq: Status: Active Protocol: Document 05/07/22 15:38 ADA (Rec: 05/07/22 16:00 ADA [id number]) E-signed By Al Weiss, PT Outpatient Therapy Subjective History Subjective History This is the initial PT eval for Chandni Morales 52 yowf who presents with increased pain and stiffness in the L knee ~ 2 wks S/P arthroscopic L knee PMM. She reports pain with any movement and prolonged standing/walking on the L LE. She has no c/o numbness or tingling in the L LE. She has PMH of CAD, OA, HL, HTN, Hypothyroid, Migraines. Chief Complaint Pain,Stiff Symptom Type Sharp Symptoms Relieved By Prescription Meds Symptoms Aggravated By Standing,Physical Activity, Walking Prior Functional Limitations None Current Functional Limitations Housework,Driving,Standing, Recreation Activity,Walking, Stairs Symptom Description Constant but Variable Level of pain today (0-10) 6 Pain scale - at its worst (0-10) 10 Hip/Knee Eval Gait Observation General Gait Pattern Observation Antalgic Gait Palpation Tenderness left Knee Palpation Finding Tenderness Knee Palpation Overall Comment med/lat jt line, incisions, hams tendons MMT Hip Flexion Strength Grade 5 Normal Hip Abduction Strength Grade 3 Fair Hip Adduction Strength Grade 3 Fair Hip Extension Strength Grade 5 Normal Knee Extension Strength Grade 3 Fair Knee Flexion Strength Grade 3 Fair ROM Knee Extension Active Range of Motion ( 0 degrees) Knee Flexion Active Range of Motion ( 0-106 degrees) Knee ROM Limitations Pain Outpatient Therapy Assessment Impairments Problems/Impairmments Palpation Tenderness,Impaired Range of Motion,Impaired Strength,Impaired Endurance, Impaired Gait Pattern,Impaired Walking,Impaired Standing, Impaired Stair Climbing, Impaired Incline Stepping, Impaired Stepping on Uneven Surface,Impaired Recreational Activities,Increased Edema,
== END 2022-05-12 13:05 | disposition home or self-care (01) ==
LOC: PT 13:00
PROVIDERS: PCP Internal Medicine Adolescent Medicine; Visit Provider Orthopaedic Surgery
DX: M25.562 Pain in left knee (principal); M23.91 Unspecified internal derangement of right knee; S83.242A Other tear of medial meniscus, current injury, left knee, initial encounter; Z98.890 Other specified postprocedural states
CPT/HCPCS: 97014; 97016; 97110; 97163; 97530; 97760; G0283

== ENCOUNTER → 2022-06-02 12:31 | Outpatient (CLI) | payer BC, SELFPAY ==
--- NOTE | 2022-06-02 12:34 | MR_ITS ---
FINAL REPORT CLINICAL HISTORY: rt knee pain pain when bending knee x 1 year fall in june 2021 COMPARISON: none FINDINGS: Multiplanar MR imaging of the right knee was performed without contrast. There is a tear of the posterior horn of the medial meniscus. The lateral meniscus is intact. The anterior and posterior cruciate ligaments are intact. The medial collateral ligament and lateral ligamentous complex are intact. There is foci of patellar tendinitis. There is no evidence of fracture. There is severe patellar chondromalacia. A small joint effusion is seen. The musculature is intact. No soft tissue mass or cyst is identified. IMPRESSION: Medial meniscus tear as above. Severe patellar chondromalacia. Reviewed, Interpreted and Dictated by Ger Huang III, MD Transcribed by Tamela García Authenticated and [facility]
== END ==
PROVIDERS: PCP Internal Medicine Adolescent Medicine; Visit Provider Orthopaedic Surgery
DX: M25.561 Pain in right knee (principal); M23.91 Unspecified internal derangement of right knee
CPT/HCPCS: 73721

== ENCOUNTER → 2022-06-10 12:03 | Outpatient (CLI) | payer BC, SELFPAY ==
[2022-06-10 12:45] LABS: Basophils # 0.1 K/mm3 (0-0.2); Basophils % 1.2 % (0.1-2.0); Eosinophils # 0.2 K/mm3 (0.0-0.4); Eosinophils % 2.2 % (0.1-12.0); Hemoglobin 14.3 g/dL (12.2-16.2); Lymphocytes # 2.5 K/mm3 (0.7-4.5); Lymphocytes % 35.3 % (10-50); Mean Corpuscular HGB Conc 32.4 g/dL (31.8-35.4); Mean Corpuscular Hemoglobin 27.5 pg (27.0-31.2); Mean Corpuscular Volume 84.9 fl (81-99); Mean Platelet Volume 7.9 fl (7.4-10.4); Monocytes # 0.4 K/mm3 (0.1-1.0); Monocytes % 6.2 % (1.7-9.3); Neutrophils % 55.1 % (37.0-80.0); Platelet Count 319 K/mm3 (142-424); Red Blood Count 5.19 M/mm3 (4.20-5.40); Red Cell Distribution Width 14.5 % (11.5-17.5); White Blood Count 7.2 K/mm3 (4.8-10.8)
[2022-06-10 13:34] LABS: Alanine Aminotransferase 62 U/L (12-78); Albumin Level 4.6 g/dl (3.5-5.0); Albumin/Globulin Ratio 1.4 (1.1-1.8); Alkaline Phosphatase 136 U/L (38-126); Anion Gap 10.9 mEq/L (5-15); Aspartate Amino Transferase 57 U/L (14-36); Bilirubin,Total 0.9 mg/dl (0.2-1.3); Blood Urea Nitrogen 20 mg/dl (7-17); Calcium 9.7 mg/dl (8.4-10.2); Carbon Dioxide 33 mmol/L (22.0-30.0); Chloride 98 mmol/L (98-107); Estimated Glomerular Filt Rate 66 ml/min (>60); GFR (African American) 80 ML/MIN (>60); Globulin 3.2 g/dL (1.3-3.2); Glucose 98 mg/dl (74-100); Potassium 3.9 mmoL/L (3.5-5.1); Sodium 138 mmol/L (136-145); Total Protein,Serum 7.8 g/dl (6.3-8.2)
== END ==
PROVIDERS: PCP Internal Medicine Adolescent Medicine; Visit Provider Orthopaedic Surgery
DX: M25.561 Pain in right knee (principal); M23.91 Unspecified internal derangement of right knee
CPT/HCPCS: 36415; 80053; 85025

== ENCOUNTER 2022-06-16 09:57 | Day surgery (SDC) | payer BC, SELFPAY ==
[2022-06-16] VITALS (15 sets, daily range): BP systolic 135–161; BP diastolic 61–97; PULSE 69–85; RESP 16–18; TEMP 31–43; O2SAT 93–100; BMI 48.6
--- NOTE | 2022-06-16 12:10 | EXP.ANES.CKL ---
[facility] Disclaimer: The information contained in this section may have been updated after the patient was seen, as this information can be updated by other users. Medical History Allergies Anxiety Arthritis CAD (coronary artery disease) Coughing Depression Gallbladder disease History of COVID-19 Hyperlipidemia Hypertension Hypothyroid Migraine Sinus headache Surgical History H/O tubal ligation History of cholecystectomy History of knee replacement History of surgery Family History Other Cancer Diabetes Social History Smoking Status: Never smoker alcohol intake: never substance use type: denies use current occupational status: unemployed Travel in the last 8 weeks: None household members: spouse housing: house marital status: education level: high school current occupational exposures/hazards: No caffeine: No special ivan needs: No agree to transfusion: No working smoke detector in home: No fire extinguisher in home: No carbon monox detector in home: No do you feel safe at home: Yes victim of physical abuse: No victim of emotional abuse: No victim of sexual abuse: No would you like helpful sources: No [facility] Anesthesia Checklist Patient Identification Patient Identification: Arm Band and Family Structural Data Admitted From: Home Planned Operative Procedure/s: ATS right knee Consent for Planned Operative Procedure(s) Verified: Yes NPO Status Verified Time NPO: 00:00 Additional verifications Patient : No Anesthesia Reactions: No Hx Blood Transfusions: No Blood Transfusion Reaction: No Cephalosporin Allergy: No Previous Colonoscopy: No Airway Assessment C-Spine Mobility Assessed: Yes TMJ Mobility Assessed: Yes Dentition: Good Dentition Neurological Assessment Level of Consciousness: Awake, Alert, Appropriate and Follows Commands Hx Seizures: No Numbness or tingling in extremities: No Anesthesia Plan Anesthesia Risk discussed: Yes ASA Class: III Anesthesia Type: General Preoperative Comments Pre-Operative Comments: cardiac stents C7, htn, hdl, hypothiroid
--- NOTE | 2022-06-16 12:36 | EXP.OP.NOTE ---
Date of procedure: 06/16/22 Pre-op Diagnosis:: Right knee medial meniscus tear Post-op Diagnosis:: Right knee macerated tear body anterior horn medial meniscus Procedure performed:: Right knee arthroscopy partial medial meniscectomy Surgeon:: Chema Fragoso DO Anesthesia: GETA Estimated blood loss (mL): 0 Operative findings:: See dictation Operative note:: Patient was identified preoperatively. Right knee marked with yes my initials. Transferred operative suite. Placed upon the operating bed. General anesthesia ministered airway secured. Right lower extremity prepped and draped within the knee greene. Once prepped and draped final operative timeout performed to identify proper patient procedure and extremity. Everyone involved the case agreed. No counter indications beginning. Did receive preoperative antibiotics. Marking pen was used to sony the bony landmarks in the and standard portal sites. Esmarch was used to exsanguinate extremity pneumatic tourniquet inflated to 300 mmHg. Standard anterior lateral portal was made blunt with trocar placed in the patellofemoral joint exchange with a camera. Swept directly into the medial joint line with anterior medial portal was made. This is exchanged with a probe. There is complex tearing of the anterior body of the medial meniscus. Unstable flaps are present. Using combination of straight biter and sucker shaver partial medial meniscectomy was performed back to stable rim. Once stable rim was obtained attention was brought to the intercondylar notch. The ACL was seen and intact. Attention brought to the lateral joint line. There is no evidence of lateral meniscus tear the lateral cartilage is well-preserved. Scope into the medial and lateral gutters no loose bodies or pathology was seen. Swell back in the patellofemoral joint within the patellofemoral joint there is evidence of grade III chondromalacia of the patella patella did track midline within the trochlea there is free mercedes cartilage which was debrided to stable rim. Camera was removed. Joint was drained. Skin closed with nylon stitch. Sterile dressing placed from toe to thigh patient was awakened from anesthesia taken recovery stable condition. Tourniquet time (min): 18 Condition: stable Disposition: PACU Complications:: None apparent
--- NOTE | 2022-06-16 12:37 | P.PNANES_ITS ---
[facility] Anesthesia Record Part I Anesthesia Record I Intake, IV Amount: 600 Estimated blood loss (mL): 30 Urine output (mL): 0 Blood Products used (#): none Blood Pressure: 154/83 SaO2: 93 Pulse Rate: 69 Respiratory Rate: 18 Temperature: 87.8 F Patient is:: Drowsy and Stable Stable to PACU at:: 12:29
--- NOTE | 2022-06-16 13:00 | ECG_ITS ---
APPROVED REPORT Exam: Resting ECG HR:83 bpm ECG Measurements Heart Rate 83 AXES MT 168 P 39 QRSd 110 QRS 1 QT 384 T 2 QTc 424 Conclusion SINUS RHYTHM LOW QRS VOLTAGE IN EXTREMITY LEADS [QRS DEFLECTION < 0.5 mV IN LIMB LEADS] Late R wave progression BORDERLINE ECG UNCONFIRMED REPORT Electronically signed by : Edward Joshi MD 06/18/2022 15:47:22
--- NOTE | 2022-06-17 07:20 | P.PNANES_ITS ---
[facility] Anesthesia Record Part II Anesthesia Record Part II Discharge Time: 13:54 Destination: Surgical Day Care (OP Surgery) PACU nurse assessment reviewed?: Yes Patient Condition:: Good Anesthesia Complications:: None Swallowing reflex intact?: Yes Cyanosis?: No Blood Pressure: 136/89 Pulse Rate: 80 Temperature: 98 F Mental Status: Alert & Oriented Pain level:: 0 Nausea and/or vomitting:: None Intake, IV Amount: 0 Comments:: Pt c/o chest pain/epigastric pain that resolved in PACU. EKG obtained. Vital signs WNL. Educated pt to come back to ER if chest pain persisted
[2022-06-17 07:27] VITALS: BP 136/89; PULSE 80; TEMP 36.6
== END 2022-06-16 14:30 | disposition home or self-care (01) ==
PROVIDERS: PCP Internal Medicine Adolescent Medicine; Visit Provider Orthopaedic Surgery
PROC: (CPT 29870; principal; 2022-06-16 11:45)
DX: M23.221 Derangement of posterior horn of medial meniscus due to old tear or injury, right knee (principal); I10 Essential (primary) hypertension; E78.5 Hyperlipidemia, unspecified; I25.10 Atherosclerotic heart disease of native coronary artery without angina pectoris; E03.9 Hypothyroidism, unspecified; Z79.899 Other long term (current) drug therapy
CPT/HCPCS: 29881; 93005; 96374; J2405

== ENCOUNTER 2022-08-20 16:30 | Outpatient (RCR) | payer BC, SELFPAY ==
--- NOTE | 2022-07-16 10:51 | HMH.PTOPEV ---
PT Outpatient Evaluation Rehab PT Outpatient Evaluation Start: 07/16/22 08:01 Freq: Status: Active Protocol: Document 07/16/22 10:39 ADA (Rec: 07/16/22 10:51 ADA [id number]) E-signed By Al Weiss, PT Outpatient Therapy Subjective History Subjective History This is the initial PT eval for Chandni Morales 52 yowf who presents ~ 1 mo S/P R knee arthroscopy with PMM with continued stiffness, weakness, and pain. She reports no pain at rest, but increased with transfers, prolonged walking, and prolonged standing. She reports she has had a similar surgery on her L knee and has been doing some of her HEP already. Chief Complaint Pain,Stiff Symptom Type Ache Symptoms Relieved By Rest/Positioning Symptoms Aggravated By Physical Activity,Walking Prior Functional Limitations None Current Functional Limitations Squatting,Walking Symptom Description Activity Dependent Level of pain today (0-10) 0 Pain scale - at its worst (0-10) 7 Hip/Knee Eval Gait Observation General Gait Pattern Observation Antalgic Gait MMT right Hip Flexion Strength Grade 4 Good Hip Abduction Strength Grade 4 Good Hip Adduction Strength Grade 4 Good Hip Extension Strength Grade 4 Good Gluteus Shad Strength Grade 4 Good Hip External Rotation Strength Grade 4 Good Hip Internal Rotation Strength Grade 4 Good Knee Extension Strength Grade 4 Good Knee Flexion Strength Grade 4 Good ROM Knee Extension Active Range of Motion ( 0 degrees) Knee Flexion Active Range of Motion ( 0-122 degrees) Special Tests Hip Bowstring (Cram) Test Negative Left,Negative Right Hip Omar Test Negative Left,Negative Right Hip Piriformis Test Negative Left,Negative Right Knee Apprehension Test Negative Left,Negative Right Knee Anterior Drawer Test Negative Left,Negative Right Velazquez 90/90 Test (PCL) Negative Left,Negative Right Knee Anterior Rashmi Test Negative Left,Negative Right Knee Valgus Stress Test Negative Left,Negative Right Knee Varus Stress Test Negative Left,Negative Right Outpatient Therapy Assessment Impairments Problems/Impairmments Impaired Range of Motion, Impaired Strength,Impaired Endurance,Impaired Transfers, Impaired Gait Pattern,Impaired
--- NOTE | 2022-08-17 16:02 | HMH.RHREAS ---
Rehab Reassessment Rehab OP Re-assessment Start: 08/17/22 15:47 Freq: Status: Active Protocol: Document 08/17/22 15:50 PHORNE (Rec: 08/17/22 16:02 PHORNE [id number]) E-signed By Al Weiss, PT Rehab Re-assessment Subjective Subjective Pt c/o increased R knee pain this date, 12/05 currently. She reports increased activity over the weekend with prolonged periods of walking or standing. Otherwise, no known reason for increased knee pain. Objective Objective Notes AROM R knee: 0-125 deg. MMT: R LE hip 5/5 throughout, Knee flex= 4+/5, Knee ext= 4/5 with increased pain during testing. TTP: 2/4 TTP noted to medial R knee jt line, and inferior patella at patellar tendon. Pt has been present for 6 PT visits since initial evaluation. Assessment Progress Assessment Slower Than Expected Assessment Notes Pt continues to show excellent AROM of the R knee with good patellar mobility and good strength in the R hip. Pain fluctuates with activity and presents as significantly increased this date vs typically during therapy sessions. No increaed ligamentous instability noted and no new injuries reported by the pt. No known cause at this time for such a high degree of pain c/o. Pain is mostly in the range of 30-60 deg of R knee flex. Pt continues to need skilled intervention to return to prior level of function. Patient goals met ST Goals Not Met ST,3,4,5 LT,2,3,4,5 Revised Goals none Plan Plan Continue per initial POC with open chain R knee activity as tolerated with limited closed chain until pain is decreased. Frequency of Therapy 2 x/wk D
== END 2022-08-20 16:35 | disposition home or self-care (01) ==
LOC: PT 16:30
PROVIDERS: PCP Internal Medicine Adolescent Medicine; Visit Provider Orthopaedic Surgery
DX: S83.231A Complex tear of medial meniscus, current injury, right knee, initial encounter (principal)
CPT/HCPCS: 97010; 97014; 97035; 97110; 97112; 97140; 97163; 97164; 97535; G0283

== ENCOUNTER 2022-10-10 17:52 | Emergency (ER) | payer BC, SELFPAY ==
[2022-10-10 17:59] VITALS: BP 143/61; PULSE 58; RESP 19; TEMP 37; O2SAT 96; BMI 46.0
--- NOTE | 2022-10-10 18:09 | HMH.EDGENADL ---
Discharge Plan Disposition Patient Disposition: Home, Self-Care Prescriptions Prescriptions: New ibuprofen 800 mg tablet 800 mg PO TID PRN (Reason: pain) 7 Days Qty: 20 0RF cyclobenzaprine 5 mg tablet 5 mg PO TID PRN (Reason: muscle spasm) 5 Days Qty: 15 0RF No Action hydroxyzine pamoate 25 mg capsule 25 mg PO DAILY levothyroxine 200 mcg tablet 200 mcg PO DAILY aspirin 81 mg tablet,delayed release (DR/EC) 81 mg PO DAILY 30 Days Qty: 30 oxybutynin chloride 15 mg tablet extended release 24hr 15 mg PO DAILY Patient Comments: TAKE 1 TABLET BY MOUTH ONCE DAILY citalopram 40 mg tablet 40 mg PO DAILY rosuvastatin 5 mg tablet 5 mg PO DAILY Patient Comments: TAKE 1 TABLET BY MOUTH ONCE DAILY clopidogrel 75 mg tablet 75 mg PO DAILY Qty: 30 11RF tramadol 50 mg tablet 50 mg PO Q12H PRN (Reason: pain) Qty: 30 0RF metformin 500 mg Tablet 500 mg PO DAILY hydrocodone-acetaminophen 5-325 mg tablet 1 tab PO Q4H PRN (Reason: post op pain) Qty: 30 0RF furosemide 40 MG tablet 40 mg PO DAILY nitroglycerin 0.4 MG tablet, sublingual 0.4 mg sublingual Q5MINP PRN (Reason: chest pain) Rx Instructions: do not exceed 3 doses per episode fexofenadine [Nery Allergy] 180 mg tablet 180 mg PO DAILY bisoprolol fumarate 5 mg tablet 5 mg PO DAILY Rx Instructions: Take 1 tablet by mouth once daily (DME) [facility] See Rx Instructions .Route Qty: 1 0RF Rx Instructions: As directed Referrals Follow up/Referrals: Edward Joshi MD [Primary Care Provider] - See instructions Activity Restrictions/Add. Instructions Additional Instructions/Restrictions: Your symptoms today are consistent with a musculoskeletal back strain. Please take the Flexeril and Tylenol as needed. Additionally been prescribed anti-inflammatory dose of ibuprofen. You are on antiplatelet agents including aspirin and Plavix and theoretically ibuprofen can increase the risk of bleeding associated with this. The risk is likely low however you may use this sparingly only if you are not getting better with Tylenol and Flexeril. Please return to the emergency part with any worsening symptoms including bleeding. Additionally you may ice the area and rest from significant exertional activity while this is healing. Clinical Impressions Clinical Impression: Back strain Instructions Patient Instructions: DI for Low Back Pain Discharge ED Provider: Casandra Lees General Adult HPI General Chief complaint: Back Pain/Injury Stated complaint: back pain Time Seen by Provider: 10/10/22 18:05 Mode of Arrival: Wheelchair Source of Information: Patient Limitations: No Limitations Description of Symptoms (Recalled from ER Triage Doc. by RN): pt to ed c/o thoracic pain. pt states she bent over to picker tender a piece of paper and when she stood up her back began to hurt. pt reports taking 2 muscle relaxers with no relief. History of Present Illness HPI narrative: Patient is a 52-year-old female here with back pain. States that she was bending over to pick something up and stood up where she subsequently felt some tensing in the left paraspinal aspect of her back in the thoracic region. She took some Flexeril at home and also administered a topical analgesic without any significant improvement. She did not take Tylenol or ibuprofen. She denies any midline pain any lower extremity weakness any urinary retention or urinary or bowel incontinence no history of injection drug use or cancer or fever. Related Data Home Medications Medication Instructions Recorded Confirmed aspirin 81 mg tablet,delayed 81 mg PO DAILY HEART HEALTH 30 09/05/17 09/09/22 release days ##30 hydroxyzine pamoate 25 mg capsule 25 mg PO DAILY Anxiety 05/14/20 09/09/22 furosemide 40 mg tablet 40 mg PO DAILY Congestion/chest 03/08/21 09/09/22 congesti
--- NOTE | 2022-10-10 18:25 | PC.NURSE ---
WENT IN TO GIVE IM INJECTION PT DID NOT WANT THAT IN HER GLUTS SHE DID NOT WANT TO STAND UP DUE TO BACK PAIN PT REQUESTED IN HER DELTOID
[2022-10-10 19:03] VITALS: BP 121/45; PULSE 72; RESP 16; TEMP 37; O2SAT 93
== END 2022-10-10 19:05 | disposition home or self-care (01) ==
PROVIDERS: Emergency Provider Student in an Organized Health Care Education/Training Program; PCP Internal Medicine Adolescent Medicine
DX: M54.6 Pain in thoracic spine (principal); X50.1XXA Overexertion from prolonged static or awkward postures, initial encounter; E03.9 Hypothyroidism, unspecified; I10 Essential (primary) hypertension; E78.5 Hyperlipidemia, unspecified; F32.A Depression, unspecified; I25.10 Atherosclerotic heart disease of native coronary artery without angina pectoris; F41.9 Anxiety disorder, unspecified
CPT/HCPCS: 96372; 99283

== ENCOUNTER → 2023-01-17 10:02 | Outpatient (CLI) | payer BC, SELFPAY ==
[2023-01-17 11:59] LABS: Alanine Aminotransferase 42 U/L (12-78); Albumin Level 4.3 g/dl (3.5-5.0); Albumin/Globulin Ratio 1.3 (1.1-1.8); Alkaline Phosphatase 111 U/L (38-126); Anion Gap 14.4 mEq/L (5-15); Aspartate Amino Transferase 34 U/L (14-36); Bilirubin,Total 0.5 mg/dl (0.2-1.3); Blood Urea Nitrogen 27 mg/dl (7-17); Calcium 9.9 mg/dl (8.4-10.2); Carbon Dioxide 29 mmol/L (22.0-30.0); Chloride 102 mmol/L (98-107); Chol/HDL Ratio 3.8 (1-3.5); Cholesterol 216 mg/dl (140-200); Estimated Glomerular Filt Rate 88 ml/min (>60); GFR (African American) 107 ML/MIN (>60); Globulin 3.2 g/dL (1.3-3.2); Glucose 88 mg/dl (74-100); HDL Cholesterol 57 mg/dl (40-60); Potassium 4.4 mmoL/L (3.5-5.1); Sodium 141 mmol/L (136-145); Total Protein,Serum 7.5 g/dl (6.3-8.2); Triglycerides 173 mg/dl (30-150); VLDL Cholesterol 35 mg/dL (0-40)
[2023-01-17 12:10] LABS: Direct LDL Cholesterol 115.95 mg/dL (100-129)
[2023-01-17 12:30] LABS: Thyroid Stimulating Hormone < 0.02 uIU/mL (0.465-4.68)
[2023-01-17 17:01] LABS: Hemoglobin A1C 5.2 % (4.0-6.0)
== END ==
PROVIDERS: PCP Internal Medicine Adolescent Medicine; Visit Provider Nurse Practitioner Family
DX: E11.9 Type 2 diabetes mellitus without complications (principal); I10 Essential (primary) hypertension; E03.9 Hypothyroidism, unspecified; Z79.84 Long term (current) use of oral hypoglycemic drugs
CPT/HCPCS: 36415; 80053; 80061; 83036; 84443

== ENCOUNTER → 2023-03-14 10:04 | Outpatient (CLI) | payer BC, SELFPAY ==
--- NOTE | 2023-03-14 10:07 | XR_ITS ---
FINAL REPORT CLINICAL HISTORY: Left foot pain COMPARISON: None FINDINGS: LEFT FOOT Three views of the left foot demonstrate no acute fracture or dislocation. The visualized joint spaces are normally aligned. The soft tissues are unremarkable. IMPRESSION: No acute bony abnormality. Reviewed, Interpreted and Dictated by Kings Rodriguez MD Transcribed by Tamela García Authenticated and [facility]
--- NOTE | 2023-03-14 10:07 | XR_ITS ---
FINAL REPORT CLINICAL HISTORY: Right foot pain COMPARISON: None FINDINGS: RIGHT FOOT 3 views of the right foot were obtained. There is no acute fracture or dislocation. Visualized joint spaces are normally aligned. Soft tissues are unremarkable. IMPRESSION: No acute bony abnormality. Reviewed, Interpreted and Dictated by Kings Rodriguez MD Transcribed by Tamela García Authenticated and [facility]
== END ==
PROVIDERS: PCP Internal Medicine Adolescent Medicine; Visit Provider Podiatrist
DX: M79.671 Pain in right foot (principal); M79.672 Pain in left foot
CPT/HCPCS: 73630

== ENCOUNTER 2023-03-24 18:31 | Emergency (ER) | payer BC, SELFPAY ==
[2023-03-24 18:50] VITALS: BP 100/58; PULSE 107; RESP 20; TEMP 36.8; O2SAT 97; BMI 42.8
--- NOTE | 2023-03-24 19:31 | ED_ITS ---
Discharge Plan Disposition Patient Disposition: Home, Self-Care Condition: Good Prescriptions Prescriptions: New guaifenesin [Mucinex] 600 mg tablet extended release 12hr 1,200 mg PO BID PRN (Reason: cough) Qty: 20 0RF azithromycin [Zithromax Z-Td] 250 mg tablet See Rx Instructions .ROUTE .COMPLEX 5 Days Qty: 6 0RF Rx Instructions: For 250 mg dose pack: take 500 mg today (day 1), then 250 mg for 4 days (days 2-5) benzonatate 100 mg capsule 100 mg PO TID PRN (Reason: cough) Qty: 30 0RF No Action hydroxyzine pamoate 25 mg capsule 25 mg PO DAILY aspirin 81 mg tablet,delayed release (DR/EC) 81 mg PO DAILY 30 Days Qty: 30 oxybutynin chloride 15 mg tablet extended release 24hr 15 mg PO DAILY Patient Comments: TAKE 1 TABLET BY MOUTH ONCE DAILY citalopram 40 mg tablet 40 mg PO DAILY rosuvastatin 5 mg tablet 5 mg PO DAILY Patient Comments: TAKE 1 TABLET BY MOUTH ONCE DAILY clopidogrel 75 mg tablet 75 mg PO DAILY Qty: 30 11RF tramadol 50 mg tablet 50 mg PO Q12H PRN (Reason: pain) Qty: 30 0RF hydroxyzine HCl 50 mg tablet PO Patient Comments: TAKE 1 TO 2 TABLETS BY MOUTH ONCE DAILY AT BEDTIME FOR 30 DAYS levothyroxine 175 mcg tablet PO Patient Comments: TAKE 1 TABLET BY MOUTH ONCE DAILY celecoxib 200 mg capsule PO methylprednisolone 4 mg tablets,dose pack 4 mg PO PER PKG DIR Qty: 21 0RF metformin 500 mg Tablet 500 mg PO DAILY hydrocodone-acetaminophen 5-325 mg tablet 1 tab PO Q4H PRN (Reason: post op pain) Qty: 30 0RF furosemide 40 MG tablet 40 mg PO DAILY nitroglycerin 0.4 MG tablet, sublingual 0.4 mg sublingual Q5MINP PRN (Reason: chest pain) Rx Instructions: do not exceed 3 doses per episode fexofenadine [Nery Allergy] 180 mg tablet 180 mg PO DAILY bisoprolol fumarate 5 mg tablet 5 mg PO DAILY Rx Instructions: Take 1 tablet by mouth once daily ibuprofen 800 mg tablet 800 mg PO TID PRN (Reason: pain) 7 Days Qty: 20 0RF cyclobenzaprine 5 mg tablet 5 mg PO TID PRN (Reason: muscle spasm) 5 Days Qty: 15 0RF Referrals Follow up/Referrals: Edward Joshi MD [Primary Care Provider] - See instructions Activity Restrictions/Add. Instructions Additional Instructions/Restrictions: * Start antibiotic today. Be sure to complete entire prescription even if feeling better * Monitor temp. Tylenol every 4 hours as needed and / or ibuprofen every 6 hours as needed ( As long as your primary care physician has told you that it ok to take both. For fever/aches/pains ER if no less than 101 despite Tylenol or Motrin * Humidifier/vaporizer or hot steamy shower * Mucinex during the day for your cough and cough suppressant only at night. Be sure to drink lots of water. *Tessalon Perles will not cause drowsiness but use at bedtime to help stop cough so that you may get some rest. Follow up IMMEDIATELY for new or worsening of symptoms OR no noticeable improvement over the next 48-72 hours. 911 immediately for any life threatening symptoms such as chest pain or difficulty breathing Clinical Impressions Clinical Impression: Bronchitis Sinusitis Qualifiers: Sinusitis location: unspecified location Chronicity: unspecified Qualified Code(s): J32.9 - Chronic sinusitis, unspecified Instructions Patient Instructions: Acute Bronchitis, DI for Sinusitis Discharge ED Provider: Marion Francis [facility] General Stated complaint: cough,chest pain due to coughing Mode of Arrival: Ambulatory Source of Information: Patient Limitations: No Limitations Time Seen by Provider: 03/24/23 19:32 Description of Symptoms (Recalled from Triage Doc. by RN): PATIENT C/O COUGH WITH BURNING IN CHEST THAT STARTED LAST NIGHT HEENT Symptoms (Recalled from RN notes): No Resp Symptoms (Recalled from RN notes): Yes Skin Symptoms (Recalled from RN notes): No MS Symptoms (Recalled from RN notes): No Functional Status (Recalled from RN notes): WNL History of Present Illness Provider Complaint: Patient states that she has been having some drainage in the back of her throat that makes her cough and last night started having a burning like feeling in her throat and feels like it is trying to move into her chest like bronchitis States that this evening she noticed she was loosing her voice so she came in to get checked States that it feels like it did when she had bronchitis Related Data Home Medications Medication Instructions Recorded Confirmed aspirin 81 mg tablet,delayed 81 mg PO DAILY HEART HEALTH 30 09/05/17 03/14/23 release days ##30 hydroxyzine pamoate 25 mg capsule 25 mg PO DAILY Anxiety 05/14/20 03/14/23 furosemide 40 mg tablet 40 mg PO DAILY Congestion/chest 03/08/21 03/14/23 congesti nitroglycerin 0.4 mg sublingual 0.4 mg sublingual Q5MINP PRN chest 03/09/21 03/14/23 tablet pain citalopram 40 mg tablet 40 mg PO DAILY Anxiety 04/07/22 03/14/23 oxybutynin chloride 15 mg 15 mg PO DAILY BLADDER 04/07/22 03/14/23 tablet,extended release 24 hr rosuvastatin 5 mg tablet 5 mg PO DAILY Cholesterol 04/07/22 03/14/23 bisoprolol fumarate 5 mg tablet 5 mg PO DAILY BP 04/15/22 03/14/23 fexofenadine 180 mg tablet 180 mg PO DAILY ALLERGIES 04/15/22 03/14/23 (Nery Allergy) metformin 500 mg tablet 500 mg PO DAILY Weight loss 06/16/22 03/14/23 celecoxib 200 mg capsule mg PO 03/14/23 03/14/23 hydroxyzine HCl 50 mg tablet mg PO 03/14/23 03/14/23 levothyroxine 175 mcg tablet mcg PO 03/14/23 03/14/23 Previous Rx's Medication Instructions Recorded clopidogrel 75 mg tablet 75 mg PO DAILY [employer]ATE[employer] 04/07/22 #30 tabs hydrocodone 5 mg-acetaminophen 325 1 tab PO Q4H PRN post op pain #30 06/16/22 mg tablet tabs tramadol 50 mg tablet 50 mg PO Q12H PRN pain #30 tabs 07/29/22 cyclobenzaprine 5 mg tablet 5 mg PO TID PRN muscle spasm 5 10/10/22 days #15 tabs ibuprofen 800 mg tablet 800 mg PO TID PRN pain 7 days #20 10/10/22 tabs methylprednisolone 4 mg tablets in 4 mg PO PER PKG DIR Pain, swelling 03/14/23 a dose pack #21 tabs azithromycin 250 mg tablet See Rx Instructions PO .COMPLEX 5 03/24/23 (Zithromax Z-Td) days #6 tabs benzonatate 100 mg capsule 100 mg PO TID PRN cough #30 caps 03/24/23 guaifenesin 600 mg tablet, 1,200 mg PO BID PRN cough #20 tabs 03/24/23 extended release 12 hr (Mucinex) Allergies Allergy/AdvReac Type Severity Reaction Status Date / Time Penicillins [PENICILLINS] Allergy Intermediate ITCHING Verified 03/14/23 10:45 morphine [MORPHINE] Allergy Mild ITCHING Verified 03/14/23 10:45 Iodinated Contrast Media AdvReac Intermediate HIVES,COUGH,NAUSEA,DIZZY Verified 03/14/23 10:45 [Iodinated Contrast Media - - NEED TO Oral and] PREMED BEFORE GIVING Worker's Comp Is this a Worker's Comp case?: No [facility] Disclaimer: The information contained in this section may have been updated after the patient was seen, as this information can be updated by other users. Medical History Allergies Anxiety Arthritis CAD (coronary artery disease) Coughing Depression Gallbladder disease History of COVID-19 Hyperlipidemia Hypertension Hypothyroid Migraine Sinus headache Surgical History H/O tubal ligation History of cholecystectomy History of knee replacement left History of surgery HEART CATH - STENTS X7 Family History Other Cancer Diabetes Social History Smoking Status: Never smoker alcohol intake: never substance use type: denies use current occupational status: unemployed Travel in the last 8 weeks: None household members: spouse housing: house marital status: education level: high school current occupational exposures/hazards: No caffeine: No special ivan needs: No agree to transfusion: No working smoke detector in home: No fire extinguisher in home: No carbon monox detector in home: No do you feel safe at home: Yes victim of physical abuse: No victim of emotional abuse: No victim of sexual abuse: No would you like helpful sources: No ROS Obtained: Yes All systems reviewed & no additional complaints except as documented and Yes Systems reviewed as appropriate & no additional complaints except as documented Constitutional Constitutional: Reports system reviewed and no additional complaints, except as documented and Reports as per HPI ENT Ears, Nose, Mouth, and Throat: Reports system reviewed and no additional complaints, except as documented, Reports as per HPI, Reports sinus pain and Reports sinus pressure Cardiovascular Cardiovascular: Reports system reviewed and no additional complaints, except as documented and Reports as per HPI Respiratory Respiratory: Reports system reviewed and no additional complaints, except as documented, Reports as per HPI, Denies shortness of breath, Reports chest congestion, Reports cough and Denies wheezing Gastrointestinal Gastrointestingal: Reports system reviewed and no additional complaints, except as documented and as per HPI Allergic/Immunologic Allergic/Immunologic: Denies wheezing Physical Exam General General appearance: alert and in no apparent distress ENT ENT exam: Present mucous membranes moist Expanded ENT Exam Nose exam: Present sinus tenderness Throat exam: Present other (Pharyngeal erythema noted with PND) Respiratory Respiratory exam: Present normal lung sounds bilaterally; Absent respiratory distress or wheezes Cardiovascular Cardiovascular exam: Present regular rate, normal rhythm and normal heart sounds Abdominal Exam Abdominal exam: Present soft and normal bowel sounds; Absent distention or tenderness Neurological Exam Neurological exam: Present alert, oriented X3 and normal gait Medical Decision Making Brad Inquiry Pt receiving controlled substance: No Brad was queried for this patient: No Vital Signs: 03/24/23 18:50 Temperature 98.3 F Temperature Source Oral Pulse Rate [Right Brachial] 107 H Respiratory Rate 20 Blood Pressure [Right Arm] 100/58 L Blood Pressure Mean [Right Arm] 72 Blood Pressure Source [Right Arm] Manual Cuff/ Doppler Blood Pressure Position [Right Arm] Sitting 02 Sat by Pulse Oximetry 97 Oxygen Delivery Method Room Air Medical Decision Narrative: Medication discussed with pharmacy Patient states that she has taken azithromyci n and Steriods with her current medication without complications or reactions
[2023-03-24] MEDS: METHYLPREDNISOLONE SOD SUCC 125MG VIAL 125 MG IM (19:55)
[2023-03-24 19:56] VITALS: BP 141/81; PULSE 107; RESP 20; TEMP 36.8; O2SAT 97
== END 2023-03-24 20:08 | disposition home or self-care (01) ==
PROVIDERS: Emergency Provider Nurse Practitioner; PCP Internal Medicine Adolescent Medicine
DX: J20.9 Acute bronchitis, unspecified (principal); J01.90 Acute sinusitis, unspecified; R07.1 Chest pain on breathing; R09.81 Nasal congestion; R09.82 Postnasal drip; R05.9 Cough, unspecified; E78.5 Hyperlipidemia, unspecified; I10 Essential (primary) hypertension; E03.9 Hypothyroidism, unspecified; Z95.5 Presence of coronary angioplasty implant and graft
CPT/HCPCS: 96372; 99212; 99214; G0463

== ENCOUNTER 2023-12-24 11:18 | Emergency (ER) | payer BC, SELFPAY ==
--- NOTE | 2023-12-24 11:54 | XR_ITS ---
PROCEDURE INFORMATION: Exam: XR Chest Exam date and time: 12/24/2023 11:54 AM Age: 53 years old Clinical indication: Sternal or substernal pain TECHNIQUE: Imaging protocol: Radiologic exam of the chest. Views: 2 views. COMPARISON: CR XR CHEST 2V 04/14/2022 11:26 AM FINDINGS: Lungs: Unremarkable. No consolidation. Pleural spaces: Unremarkable. No pleural effusion. No pneumothorax. Heart/Mediastinum: Unremarkable. No cardiomegaly. Bones/joints: Unremarkable. Other findings: Lateral view limited by patient position. IMPRESSION: No acute findings.
--- NOTE | 2023-12-24 11:55 | XR_ITS ---
PROCEDURE INFORMATION: Exam: XR Left Humerus Exam date and time: 12/24/2023 11:56 AM Age: 53 years old Clinical indication: Pain; Upper arm; Left; Additional info: Pain, no known trauma TECHNIQUE: Imaging protocol: Radiologic exam of the left humerus. Views: 2 or more views. COMPARISON: CR XR SHOULDER LT MIN 2V 08/18/2020 5:11 PM FINDINGS: Bones/joints: Normal. Soft tissues: Normal. IMPRESSION: No acute findings.
[2023-12-24 12:03] VITALS: BP 120/69; PULSE 77; RESP 16; TEMP 36.9; O2SAT 96; BMI 38.2
--- NOTE | 2023-12-24 12:42 | ED_ITS ---
Discharge Plan Disposition Patient Disposition: Home, Self-Care Condition: Good Prescriptions Prescriptions: New diclofenac sodium [Voltaren Arthritis Pain] 1 % gel 4 g topical QID Qty: 100 0RF Rx Instructions: apply to single knee, ankle, foot; for foot includes sole/toes/top of foot cyclobenzaprine 5 mg tablet 5 mg PO TID Qty: 30 0RF No Action hydroxyzine pamoate 25 mg capsule 25 mg PO DAILY methylprednisolone [Medrol (Td)] 4 mg tablets,dose pack 4 mg PO PER PKG DIR Qty: 21 0RF diclofenac sodium [Voltaren Arthritis Pain] 1 % gel 4 g topical QID PRN (Reason: pain) Qty: 100 2RF Rx Instructions: apply to single knee, ankle, foot; for foot includes sole/toes/top of foot aspirin 81 mg tablet,delayed release (DR/EC) 81 mg PO DAILY 30 Days Qty: 30 oxybutynin chloride 15 mg tablet extended release 24hr 15 mg PO DAILY Patient Comments: TAKE 1 TABLET BY MOUTH ONCE DAILY citalopram 40 mg tablet 40 mg PO DAILY rosuvastatin 5 mg tablet 5 mg PO DAILY Patient Comments: TAKE 1 TABLET BY MOUTH ONCE DAILY clopidogrel 75 mg tablet 75 mg PO DAILY Qty: 30 11RF hydroxyzine HCl 50 mg tablet PO Patient Comments: TAKE 1 TO 2 TABLETS BY MOUTH ONCE DAILY AT BEDTIME FOR 30 DAYS levothyroxine 175 mcg tablet PO Patient Comments: TAKE 1 TABLET BY MOUTH ONCE DAILY celecoxib 200 mg capsule PO nystatin 100,000 unit/gram powder 1 applic topical BID 30 Days Qty: 45 3RF Rx Instructions: Sprinkle between toes up to twice daily for itchy dry cracked skin ketoconazole 2 % cream 1 applic topical QDAY 30 Days Qty: 30 3RF Rx Instructions: Apply to affected areas. Do not apply between toes. urea 41 % cream 1 applic topical BID 90 Days Qty: 227 3RF metformin 500 mg Tablet 500 mg PO DAILY hydrocodone-acetaminophen 5-325 mg tablet 1 tab PO Q4H PRN (Reason: post op pain) Qty: 30 0RF furosemide 40 MG tablet 40 mg PO DAILY nitroglycerin 0.4 MG tablet, sublingual 0.4 mg sublingual Q5MINP PRN (Reason: chest pain) Rx Instructions: do not exceed 3 doses per episode fexofenadine [Nery Allergy] 180 mg tablet 180 mg PO DAILY bisoprolol fumarate 5 mg tablet 5 mg PO DAILY Rx Instructions: Take 1 tablet by mouth once daily ibuprofen 800 mg tablet 800 mg PO TID PRN (Reason: pain) 7 Days Qty: 20 0RF cyclobenzaprine 5 mg tablet 5 mg PO TID PRN (Reason: muscle spasm) 5 Days Qty: 15 0RF Referrals Follow up/Referrals: Edward Joshi MD [Primary Care Provider] - See instructions Activity Restrictions/Add. Instructions Additional Instructions/Restrictions: Take medication as prescribed. Use Ice/heat as needed for pain. Follow up with primary care provider. Clinical Impressions Clinical Impression: Muscle spasm of left shoulder area, Muscle pain Instructions Patient Instructions: DI for Muscle Spasm Print Language Print Language: Naur[place] Discharge ED Provider: Chandni Eugene [facility] General Stated complaint: left arm pain non movement Mode of Arrival: Ambulatory Source of Information: Patient Limitations: No Limitations Time Seen by Provider: 12/24/23 12:30 HEENT Symptoms (Recalled from RN notes): No Resp Symptoms (Recalled from RN notes): No Skin Symptoms (Recalled from RN notes): No MS Symptoms (Recalled from RN notes): Yes Functional Status (Recalled from RN notes): wnl History of Present Illness Provider Complaint: Pt reports that she is not sure how she has hurt her left arm/shoulder. She reports that she often lifts her 6 yo grandchild and woke up with the arm, shoulder, neck, and upper back hurting. She denies any chest pain or shortness of breath. Related Data Home Medications ?Medication ?Instructions ?Recorded ?Confirmed aspirin 81 mg tablet,delayed 81 mg PO DAILY HEART HEALTH 30 09/05/17 09/19/23 release days ##30 hydroxyzine pamoate 25 mg capsule 25 mg PO DAILY Anxiety 05/14/20 09/19/23 furosemide 40 mg tablet 40 mg PO DAILY Congestion/chest 03/08/21 09/19/23 congesti nitroglycerin 0.4 mg sublingual 0.4 mg sublingual Q5MINP PRN chest 03/09/21 09/19/23 tablet pain citalopram 40 mg tablet 40 mg PO DAILY Anxiety 04/07/22 09/19/23 oxybutynin chloride 15 mg 15 mg PO DAILY BLADDER 04/07/22 09/19/23 tablet,extended release 24 hr rosuvastatin 5 mg tablet 5 mg PO DAILY Cholesterol 04/07/22 09/19/23 bisoprolol fumarate 5 mg tablet 5 mg PO DAILY BP 04/15/22 09/19/23 fexofenadine 180 mg tablet 180 mg PO DAILY ALLERGIES 04/15/22 09/19/23 (Nery Allergy) metformin 500 mg tablet 500 mg PO DAILY Weight loss 06/16/22 09/19/23 celecoxib 200 mg capsule mg PO 03/14/23 09/19/23 hydroxyzine HCl 50 mg tablet mg PO 03/14/23 09/19/23 levothyroxine 175 mcg tablet mcg PO 03/14/23 09/19/23 Previous Rx's ?Medication ?Instructions ?Recorded clopidogrel 75 mg tablet 75 mg PO DAILY PLATE[employer] 04/07/22 #30 tabs hydrocodone 5 mg-acetaminophen 325 1 tab PO Q4H PRN post op pain #30 06/16/22 mg tablet tabs cyclobenzaprine 5 mg tablet 5 mg PO TID PRN muscle spasm 5 10/10/22 days #15 tabs ibuprofen 800 mg tablet 800 mg PO TID PRN pain 7 days #20 10/10/22 tabs diclofenac sodium 1 % topical gel 4 g topical QID PRN pain #100 grams 05/09/23 (Voltaren Arthritis Pain) methylprednisolone 4 mg tablets in 4 mg PO PER PKG DIR #21 tabs 05/09/23 a dose pack (Medrol (Td)) ketoconazole 2 % topical cream 1 applic topical QDAY tinea pedis 07/25/23 30 days #30 grams nystatin 100,000 unit/gram topical 1 applic topical BID tinea 30 days 07/25/23 powder #45 ea urea 41 % topical cream 1 applic topical BID dry skin 3 07/25/23 months #227 grams cyclobenzaprine 5 mg tablet 5 mg PO TID #30 tabs 12/24/23 diclofenac sodium 1 % topical gel 4 g topical QID #100 grams 12/24/23 (Voltaren Arthritis Pain) Allergies Allergy/AdvReac Type Severity Reaction Status Date / Time Penicillins [PENICILLINS] Allergy Intermediate ITCHING Verified 09/19/23 11:30 morphine [MORPHINE] Allergy Mild ITCHING Verified 09/19/23 11:30 Iodinated Contrast Media AdvReac Intermediate HIVES,COUGH,NAUSEA,DIZZY Verified 09/19/23 11:30 [Iodinated Contrast Media - - NEED TO Oral and] PREMED BEFORE GIVING Worker's Comp Is this a Worker's Comp case?: No [facility] Disclaimer: The information contained in this section may have been updated after the patient was seen, as this information can be updated by other users. Medical History History of COVID-19 Sinus headache Migraine Anxiety Depression Arthritis Gallbladder disease Hypothyroid Allergies Hyperlipidemia Hypertension CAD (coronary artery disease) Coughing Surgical History History of knee replacement left History of surgery HEART CATH - STENTS X7 H/O tubal ligation History of cholecystectomy Family History Other Cancer Diabetes Social History Smoking Status: Never smoker alcohol intake: never substance use type: denies use current occupational status: unemployed Travel in the last 8 weeks: None household members: spouse housing: house marital status: education level: high school current occupational exposures/hazards: No caffeine: No special ivan needs: No agree to transfusion: No working smoke detector in home: No fire extinguisher in home: No carbon monox detector in home: No do you feel safe at home: Yes victim of physical abuse: No victim of emotional abuse: No victim of sexual abuse: No would you like helpful sources: No ROS Obtained: Yes All systems reviewed & no additional complaints except as documented Constitutional Constitutional: Reports system reviewed and no additional complaints, except as documented Eyes Eyes: Reports system reviewed and no additional complaints, except as documented ENT Ears, Nose, Mouth, and Throat: Reports system reviewed and no additional complaints, except as documented and Reports neck pain Cardiovascular Cardiovascular: Reports system reviewed and no additional complaints, except as documented Respiratory Respiratory: Reports system reviewed and no additional complaints, except as documented Gastrointestinal Gastrointestingal: Reports system reviewed and no additional complaints, except as documented Genitourinary Female Genitourinary: Reports system reviewed and no additional complaints, except as documented Musculoskeletal Musculoskeletal: Reports system reviewed and no additional complaints, except as documented, Reports arthralgias, Reports limited range of motion, Reports muscle cramps, Reports myalgias and Reports neck pain Integumentary/Breasts Skin/Breast: Reports system reviewed and no additional complaints, except as documented Neurologic Neurologic: Reports system reviewed and no additional complaints, except as documented Endocrine Endocrine: Reports system reviewed and no additional complaints, except as documented Hematologic/Lymphatic Henatologic/Lymphatic: Reports system reviewed and no additional complaints, except as documented Allergic/Immunologic Allergic/Immunologic: Reports system reviewed and no additional complaints, except as documented Physical Exam General General appearance: alert Comment: appears in pain Head Head exam: atraumatic and normocephalic Eye Eye exam: Present normal appearance ENT ENT exam: Present normal exam Expanded Neck Exam Neck exam focused ED: Present paraspinal tenderness Neck image: 2 1. tenderness on palpitation Chest Chest inspection: Present normal inspection and symmetric chest wall rise Respiratory Respiratory exam: Present normal lung sounds bilaterally Cardiovascular Cardiovascular exam: Present regular rate, normal rhythm and normal heart sounds Abdominal Exam Abdominal exam: Present soft Extremities Exam Extremities exam: Present other Expanded Upper Extremity Exam Left: Shoulder exam: Present tenderness and tenderness over AC joint Arm exam: Present tenderness Elbow exam: Present normal inspection Forearm/Wrist exam: Present normal inspection Hand exam: Present normal inspection Vascular exam: Normal capillary refill, radial pulse, ulnar pulse and brachial pulse Back Exam Back exam: Present tenderness and muscle spasm Back 1 view image: 2 1. tenderness on palpitation Neurological Exam Neurological exam: Present alert and oriented X3 Psychiatric Psychiatric exam: Present normal affect and normal mood Skin Skin exam: Present warm, dry and intact Lymphatic Lymphatic Findings: no adenopathy Medical Decision Making Medical Records Screening: Per USPSTF and CDC recommendations, given the prevalence of disease in our region, it is our hospital?s policy to screen for HIV and viral Hepatitis for all patients aged 18 and over and those with ongoing risk factors. Brad Inquiry Pt receiving controlled substance: No Brad was queried for this patient: No Vital Signs: 12/24/23 12:03 Temperature 98.5 F Temperature Source Oral Pulse Rate [Radial] 77 Respiratory Rate 16 Blood Pressure [Right Arm] 120/69 Blood Pressure Mean [Right Arm] 86 Blood Pressure Source [Right Arm] Automatic Cuff Blood Pressure Position [Right Arm] Sitting 02 Sat by Pulse Oximetry 96 Oxygen Delivery Method Room Air Orders (Tests/Meds): ORDERS Category Date Time Status Chest XR 2 view (NOT portable) [XR chest 2V] Stat Exams 12/24/23 11:54 Completed Humerus XR left [XR humerus LT] Stat Exams 12/24/23 11:55 Completed Radiology Data #1: Image(s): Humerus Image Reviewed: Yes I reviewed the patient's radiology results and Yes I have reviewed radiologist's interpretation FINDINGS: Bones/joints: Normal. Soft tissues: Normal. IMPRESSION: No acute findings #2: Image(s): Chest Image Reviewed: Yes I reviewed the patient's radiology results and Yes I have reviewed radiologist's interpretation Other findings: Lateral view limited by patient position. IMPRESSION: No acute findings.
[2023-12-24 13:24] VITALS: BP 120/69; PULSE 77; RESP 16; TEMP 36.9; O2SAT 96
== END 2023-12-24 13:24 | disposition home or self-care (01) ==
PROVIDERS: Emergency Provider Nurse Practitioner Family; PCP Internal Medicine Adolescent Medicine
DX: M25.512 Pain in left shoulder (principal); M62.838 Other muscle spasm
CPT/HCPCS: 71046; 73060; 99212; 99214; G0463

== ENCOUNTER 2023-12-27 19:04 | Emergency (ER) | payer BC, SELFPAY ==
[2023-12-27 19:10] VITALS: BP 122/76; PULSE 58; RESP 20; TEMP 36.8; O2SAT 97; BMI 40.1
--- NOTE | 2023-12-27 19:30 | EXP.UTC ---
Discharge Plan Disposition Patient Disposition: Home, Self-Care Condition: Good Prescriptions Prescriptions: New diphenhydramine HCl 25 mg capsule 25 mg PO Q6HP PRN (Reason: Itching) Qty: 30 0RF methylprednisolone 4 mg Tablets,Dose Pack 4 mg PO DIRECTED 6 Days Qty: 21 0RF Rx Instructions: Take 1 pack as directed for 6 days No Action oxybutynin chloride 15 mg tablet extended release 24hr 15 mg PO DAILY Patient Comments: TAKE 1 TABLET BY MOUTH ONCE DAILY citalopram 40 mg tablet 40 mg PO DAILY Patient Comments: TAKE 1 TABLET BY MOUTH ONCE DAILY doxepin 10 mg capsule 10 mg PO DAILY Patient Comments: TAKE 1 CAPSULE BY MOUTH ONCE DAILY AT BEDTIME levothyroxine 150 mcg tablet 150 mcg PO DAILY Patient Comments: TAKE 1 TABLET BY MOUTH ONCE DAILY cyclobenzaprine 5 mg tablet 5 mg PO DAILY rosuvastatin 5 mg tablet 5 mg PO DAILY Patient Comments: TAKE 1 TABLET BY MOUTH ONCE DAILY bupropion HCl 150 mg tablet extended release 24 hr 150 mg PO DAILY Patient Comments: TAKE 1 TABLET BY MOUTH ONCE DAILY Referrals Follow up/Referrals: Edward Joshi MD [Primary Care Provider] - See instructions Activity Restrictions/Add. Instructions Additional Instructions/Restrictions: Don't start the oral steroids until tomorrow. The diphenhydramine (benedryl) will make you drowsy, so don't drive or operate heavy machinery after taking it. Follow up with your regular doctor. GO TO THE ER FOR ANY WORSENING SYMPTOMS OR CONCERNS Clinical Impressions Clinical Impression: Bee sting Stand Alone Forms Stand Alone Forms: Work/School Release Instructions Patient Instructions: How to Care for an Insect Bite or Sting, Methylprednisolone Injection Print Language Print Language: Citizen Of [place] Discharge ED Provider: Rodrigue Baum [facility] HPI General Stated complaint: bee sting RT eye Mode of Arrival: Ambulatory Source of Information: Patient Limitations: No Limitations Time Seen by Provider: 12/27/23 19:29 Description of Symptoms (Recalled from Triage Doc. by RN): PATIENT C/O SWELLING TO RIGHT EYE AFTER BEING STUNG BY A BEE JUST BELOW THE EYE TODAY HEENT Symptoms (Recalled from RN notes): Yes Resp Symptoms (Recalled from RN notes): No Skin Symptoms (Recalled from RN notes): No MS Symptoms (Recalled from RN notes): No Functional Status (Recalled from RN notes): WNL History of Present Illness Provider Complaint: She states that earlier today she was stung by a yellow jacket on the right side of her face just below her right eye. She has had swelling of her right lower eye lid and right sided facial swelling and redness. She denies any history of bee sting allergy. She denies any swelling of her lips, in her mouth or throat. She denies any chest tightness and chest pain. Related Data Home Medications ?Medication ?Instructions ?Recorded ?Confirmed bupropion HCl 150 mg 24 hr tablet, 150 mg PO DAILY 12/27/23 12/27/23 extended release citalopram 40 mg tablet 40 mg PO DAILY 12/27/23 12/27/23 cyclobenzaprine 5 mg tablet 5 mg PO DAILY 12/27/23 12/27/23 doxepin 10 mg capsule 10 mg PO DAILY 12/27/23 12/27/23 levothyroxine 150 mcg tablet 150 mcg PO DAILY 12/27/23 12/27/23 oxybutynin chloride 15 mg 15 mg PO DAILY 12/27/23 12/27/23 tablet,extended release 24 hr rosuvastatin 5 mg tablet 5 mg PO DAILY 12/27/23 12/27/23 Previous Rx's ?Medication ?Instructions ?Recorded diphenhydramine HCl 25 mg capsule 25 mg PO Q6HP PRN Itching #30 caps 12/27/23 methylprednisolone 4 mg tablets in 4 mg PO DIRECTED 6 days #21 tabs 12/27/23 a dose pack Allergies Allergy/AdvReac Type Severity Reaction Status Date / Time Penicillins [PENICILLINS] Allergy Intermediate ITCHING Verified 09/19/23 11:30 morphine [MORPHINE] Allergy Mild ITCHING Verified 09/19/23 11:30 Iodinated Contrast Media AdvReac Intermediate HIVES,COUGH,NAUSEA,DIZZY Verified 09/19/23 11:30 [Iodinated Contrast Media - - NEED TO Oral and] PREMED BEFORE GIVING Worker's Comp Is this a Worker's Comp case?: No [facility] Disclaimer: The information contained in this section may have been updated after the patient was seen, as this information can be updated by other users. Medical History History of COVID-19 Sinus headache Migraine Anxiety Depression Arthritis Gallbladder disease Hypothyroid Allergies Hyperlipidemia Hypertension CAD (coronary artery disease) Coughing Surgical History History of knee replacement left History of surgery HEART CATH - STENTS X7 H/O tubal ligation History of cholecystectomy Family History Other Cancer Diabetes Social History Smoking Status: Never smoker alcohol intake: never substance use type: denies use current occupational status: unemployed Travel in the last 8 weeks: None household members: spouse housing: house marital status: education level: high school current occupational exposures/hazards: No caffeine: No special ivan needs: No agree to transfusion: No working smoke detector in home: No fire extinguisher in home: No carbon monox detector in home: No do you feel safe at home: Yes victim of physical abuse: No victim of emotional abuse: No victim of sexual abuse: No would you like helpful sources: No ROS Obtained: Yes All systems reviewed & no additional complaints except as documented Constitutional Constitutional: Denies chills and Denies fever(s) Eyes Eyes: Reports as per HPI, Denies change in vision and Denies eye discharge ENT Ears, Nose, Mouth, and Throat: Denies dizziness, Denies otalgia and Denies sore throat Cardiovascular Cardiovascular: Denies chest pain Respiratory Respiratory: Denies shortness of breath, Denies chest congestion, Denies cough, Denies stridor and Denies wheezing Gastrointestinal Gastrointestingal: Denies nausea or vomiting Musculoskeletal Musculoskeletal: Reports system reviewed and no additional complaints, except as documented and Denies arthralgias Integumentary/Breasts Skin/Breast: Reports as per HPI and Reports redness Neurologic Neurologic: Denies dizziness and Denies paresthesias Allergic/Immunologic Allergic/Immunologic: Denies wheezing Physical Exam General General appearance: alert and in no apparent distress Head Head exam: atraumatic, normocephalic and normal inspection Eye Eye exam: Present PERRL, EOMI, periorbital swelling and periorbital tenderness; Absent conjunctival injection, discharge, miosis or mydriasis Expanded Eye Exam Eyelids: left: normal inspection and right: swelling eyelids Pupils: Left: size (2), Right: size (2) and Bilateral: regular, round and reactive Sclera/Conjunctival: bilateral: normal inspection ENT ENT exam: Present normal exam, normal oropharynx, mucous membranes moist, TM's normal bilaterally and normal external ear exam Neck Neck exam: Present normal inspection, full ROM and trachea midline; Absent meningismus or lymphadenopathy Chest Chest inspection: Present normal inspection and symmetric chest wall rise; Absent tenderness Respiratory Respiratory exam: Present normal lung sounds bilaterally; Absent respiratory distress Cardiovascular Cardiovascular exam: Present regular rate and normal rhythm; Absent JVD Abdominal Exam Abdominal exam: Present soft and normal bowel sounds; Absent distention, tenderness or guarding Extremities Exam Extremities exam: Present normal inspection, full ROM and normal capillary refill; Absent calf tenderness Back Exam Back exam: Present normal inspection; Absent tenderness Neurological Exam Neurological exam: Present alert and oriented X3 Psychiatric Psychiatric exam: Present normal affect and normal mood Skin Skin exam: Present warm, dry, intact and normal color Lymphatic Lymphatic Findings: no adenopathy Medical Decision Making Medical Records Medical records reviewed: No I reviewed the patient's medical records. Screening: Per USPSTF and CDC recommendations, given the prevalence of disease in our region, it is our hospital?s policy to screen for HIV and viral Hepatitis for all patients aged 18 and over and those with ongoing risk factors. Brad Inquiry Pt receiving controlled substance: No Vital Signs: 12/27/23 19:10 Temperature 98.2 F Temperature Source Oral Pulse Rate [Left Brachial] 58 L Respiratory Rate 20 Blood Pressure [Left Arm] 122/76 Blood Pressure Mean [Left Arm] 91 Blood Pressure Source [Left Arm] Automatic Cuff Blood Pressure Position [Left Arm] Sitting 02 Sat by Pulse Oximetry 97 Oxygen Delivery Method Room Air
[2023-12-27] MEDS: METHYLPREDNISOLONE SOD SUCC 125MG VIAL 125 MG IM (19:33)
[2023-12-27 19:40] VITALS: BP 122/76; PULSE 58; RESP 20; TEMP 36.8; O2SAT 97
== END 2023-12-27 19:44 | disposition home or self-care (01) ==
PROVIDERS: Emergency Provider Nurse Practitioner Family; PCP Internal Medicine Adolescent Medicine
DX: T63.441A Toxic effect of venom of bees, accidental (unintentional), initial encounter (principal)
CPT/HCPCS: 99212; G0381; J2919

== ENCOUNTER 2024-06-02 12:02 | Outpatient (CLI) | payer MEDICARE, SELFPAY ==
[2024-06-02 20:17] LABS: Coronavirus 19, PCR Not Detected (NotDetected); Human Rhinovirus Not Detected (NotDetected); Influenza A, PCR Not Detected (NotDetected); Influenza B, PCR Not Detected (NotDetected); Respiratory Syncytial Virus Not Detected (NotDetected)
== END 2024-06-02 23:59 | disposition home or self-care (01) ==
LOC: LAB.DROPOF 06-04 16:44
PROVIDERS: PCP Nurse Practitioner Family; Visit Provider Nurse Practitioner Family
DX: J06.9 Acute upper respiratory infection, unspecified (principal)
CPT/HCPCS: 87631

== ENCOUNTER 2024-06-21 11:27 | Outpatient (CLI) | payer MEDICARE, SELFPAY ==
[2024-06-21 12:35] LABS: Free Thyroxine Index 4.9 ug/dL (5.93-13.13); T4 (Thyroxine) 14.7 ug/dl (5.53-11.0); Triiodothryronine (T3) Uptake 33 % (23.5-40.5)
[2024-06-21 12:48] LABS: Thyroid Stimulating Hormone 0.02 uIU/mL (0.465-4.68)
== END 2024-06-21 23:59 | disposition home or self-care (01) ==
LOC: LAB 11:29
PROVIDERS: PCP Internal Medicine Adolescent Medicine; Visit Provider Nurse Practitioner Family
DX: E03.9 Hypothyroidism, unspecified (principal)
CPT/HCPCS: 36415; 84436; 84443; 84479

== ENCOUNTER 2024-08-06 09:37 | Inpatient (IN) | payer MEDICARE, SELFPAY ==
[2024-08-06] VITALS (26 sets, daily range): BP systolic 116–161; BP diastolic 11–77; PULSE 95–185; RESP 12–24; TEMP 37.1–39.3; O2SAT 92–100; BMI 40.7
--- NOTE | 2024-08-06 09:45 | ED_ITS ---
Discharge Plan Disposition Patient Disposition: Admitted Clinical Impressions Clinical Impression: Sepsis, Pyelonephritis Discharge ED Provider: Sy Hernandez General Adult HPI General Chief complaint: Abdominal Pain Stated complaint: Abd pain, can't control urine, vomiting Time Seen by Provider: 08/06/24 09:44 History of Present Illness HPI narrative: Chandni Morales is a 54-year-old female with a history of 6 cardiac stents not on a blood thinner, coronary artery disease, hypertension, hyperlipidemia, status post cholecystectomy, hysterectomy, tubal ligation, who presents to the emergency department for complaints of abdominal pain. Patient states that over the last 3 to 4 days, she has had sharp abdominal pain that is radiating to her right back. She is also reporting pain with urination. She denies any chest pain upon arrival but does report some shortness of breath. She reports some nausea and vomiting over the weekend as well. She denies any bowel habit changes or blood in her stool. Related Data Home Medications ?Medication ?Instructions ?Recorded ?Confirmed bupropion HCl 150 mg 24 hr tablet, 150 mg PO DAILY 12/27/23 08/06/24 extended release doxepin 10 mg capsule 10 mg PO HS 12/27/23 08/06/24 levothyroxine 150 mcg tablet 150 mcg PO DAILY 12/27/23 08/06/24 rosuvastatin 5 mg tablet 5 mg PO DAILY 12/27/23 08/06/24 aspirin 81 mg tablet,delayed 81 mg PO DAILY 06/02/24 08/06/24 release (Adult Low Dose Aspirin) mirabegron 25 mg tablet,extended 25 mg PO DAILY 06/14/24 08/06/24 release 24 hr (Myrbetriq) metformin 500 mg tablet 500 mg PO BID 08/06/24 08/06/24 semaglutide 0.25 mg or 0.5 mg (2 0.5 mg SQ WEEKLY 08/06/24 08/06/24 mg/3 mL) subcutaneous pen injector (Ozempic) Allergies Allergy/AdvReac Type Severity Reaction Status Date / Time Penicillins (PENICILLINS) Allergy Intermediate ITCHING Verified 06/14/24 11:12 morphine (MORPHINE) Allergy Mild ITCHING Verified 06/14/24 11:12 Iodinated Contrast Media AdvReac Intermediate HIVES,COUGH,NAUSEA,DIZZY Verified 06/14/24 11:12 (Iodinated Contrast Media - - NEED TO Oral and) PREMED BEFORE GIVING PFSH PFSH Disclaimer: The information contained in this section may have been updated after the patient was seen, as this information can be updated by other users. Medical History (Updated 08/06/24 @ 15:10 by Gretchen Isbell RN) Conjunctivitis History of COVID-19 Sinus headache Migraine Anxiety Depression Arthritis Gallbladder disease Hypothyroid Allergies Hyperlipidemia Hypertension CAD (coronary artery disease) Coughing Surgical History History of knee replacement History of surgery H/O tubal ligation History of cholecystectomy Family History Other Cancer Diabetes Social History (Updated 08/06/24 @ 16:36 by Nadia Moon RN) Smoking Status: Never smoker alcohol intake: never substance use type: denies use current occupational status: unemployed Travel in the last 8 weeks?: None household members: spouse housing: house marital status: education level: high school current occupational exposures/hazards: No caffeine: No special ivan needs: No agree to transfusion: No working smoke detector in home: No fire extinguisher in home: No carbon monox detector in home: No do you feel safe at home: Yes victim of physical abuse: No victim of emotional abuse: No victim of sexual abuse: No would you like helpful sources: No Have you lived/traveled outside US in past 30 days?: No Contact w/someone who lives/traveled outside US past 30 days?: No Exposure to someone with infectious disease in past 14 days?: No Do you have a fever (greater than 100.4 F or 38 C)?: No Have you tested positive for COVID-19?: No Exposed to someone with COVID-19 in past 14 days?: No Do you have a sore throat?: No Do you have a cough?: No Do you have any weakness?: No Are you experiencing any nausea/vomitting?: No Do you have any diarrhea?: No Are you experiencing any unusual bleeding?: No Do you have any muscle aches/pain?: No Do you have any abdominal pain?: Yes Are you experiencing loss of taste or smell?: No Other Medical History Have you received the Flu Vaccine for this season: Yes Have you received the Pneumonia Vaccine: No ROS Obtained: Yes Systems reviewed as appropriate & no additional complaints except as documented Physical Exam General General appearance: alert Comment: appears uncomfortable Head Head exam: atraumatic Eye Eye exam: Present normal appearance ENT ENT exam: Present normal external ear exam Neck Neck exam: Present full ROM Chest Chest inspection: Present symmetric chest wall rise Respiratory Respiratory exam: Present normal lung sounds bilaterally and respiratory distress (mildly increased work with breathing) Cardiovascular Cardiovascular exam: Present normal rhythm and tachycardia Abdominal Exam Abdominal exam: Present soft and tenderness (generalized, but more focally in the RLQ and epigastric regions); Absent guarding Extremities Exam Extremities exam: Present normal inspection Back Exam Back exam: Present normal inspection and CVA tenderness (R); Absent CVA tenderness (L) Neurological Exam Neurological exam: Present alert and oriented X3 Psychiatric Psychiatric exam: Present anxious Skin Skin exam: Present warm and dry Medical Decision Making Medical Records Screening: Per USPSTF and CDC recommendations, given the prevalence of disease in our region, it is our hospital?s policy to screen for HIV and viral Hepatitis for all patients aged 18 and over and those with ongoing risk factors. Brad Inquiry Pt receiving controlled substance: No Vital Signs: 08/06/24 09:50 08/06/24 09:51 08/06/24 10:05 Temperature 99.9 F H Temperature Source Oral Pulse Rate 119 H 178 H Pulse Rate [Right] 119 H Respiratory Rate 22 Blood Pressure 147/55 H 126/62 Blood Pressure [Right Arm] 147/55 H Blood Pressure Mean [Right Arm] 85 Blood Pressure Source Automatic Cuff Automatic Cuff Blood Pressure Source [Right Arm] Automatic Cuff 02 Sat by Pulse Oximetry 100 98 96 Oxygen Delivery Method Room Air Room Air Room Air Oxygen Flow Rate (LPM) 08/06/24 10:15 08/06/24 10:15 08/06/24 10:51 Temperature Temperature Source Pulse Rate 184 H 185 H 175 H Pulse Rate [Right] Respiratory Rate 24 Blood Pressure Blood Pressure [Right Arm] Blood Pressure Mean [Right Arm] Blood Pressure Source Blood Pressure Source [Right Arm] 02 Sat by Pulse Oximetry 100 97 99 Oxygen Delivery Method Room Air Room Air Oxygen Flow Rate (LPM) 08/06/24 11:20 08/06/24 11:31 08/06/24 11:40 Temperature Temperature Source Pulse Rate 113 H Pulse Rate [Right] Respiratory Rate 18 22 15 Blood Pressure 138/77 131/63 131/66 Blood Pressure [Right Arm] Blood Pressure Mean [Right Arm] Blood Pressure Source Blood Pressure Source [Right Arm] 02 Sat by Pulse Oximetry 100 100 100 Oxygen Delivery Method Nasal Cannula Nasal Cannula Nasal Cannula Oxygen Flow Rate (LPM) 3 3 3 08/06/24 11:50 08/06/24 12:00 08/06/24 12:03 Temperature Temperature Source Pulse Rate 114 H 115 H 112 H Pulse Rate [Right] Respiratory Rate 15 23 17 Blood Pressure 116/65 135/11 L 135/72 Blood Pressure [Right Arm] Blood Pressure Mean [Right Arm] Blood Pressure Source Blood Pressure Source [Right Arm] 02 Sat by Pulse Oximetry 100 100 100 Oxygen Delivery Method Oxygen Flow Rate (LPM) 08/06/24 12:10 08/06/24 12:20 08/06/24 12:30 Temperature Temperature Source Pulse Rate 109 H 116 H 115 H Pulse Rate [Right] Respiratory Rate 12 16 21 Blood Pressure 134/68 142/74 H 135/68 Blood Pressure [Right Arm] Blood Pressure Mean [Right Arm] Blood Pressure Source Blood Pressure Source [Right Arm] 02 Sat by Pulse Oximetry 100 100 100 Oxygen Delivery Method Oxygen Flow Rate (LPM) 08/06/24 12:40 08/06/24 12:50 08/06/24 13:00 Temperature Temperature Source Pulse Rate 113 H 110 H 113 H Pulse Rate [Right] Respiratory Rate 16 24 20 Blood Pressure 150/71 H 138/71 150/72 H Blood Pressure [Right Arm] Blood Pressure Mean [Right Arm] Blood Pressure Source Blood Pressure Source [Right Arm] 02 Sat by Pulse Oximetry 100 96 100 Oxygen Delivery Method Oxygen Flow Rate (LPM) 08/06/24 13:10 08/06/24 13:20 08/06/24 13:30 Temperature Temperature Source Pulse Rate 112 H 110 H 112 H Pulse Rate [Right] Respiratory Rate 19 19 15 Blood Pressure 137/73 143/69 H 134/67 Blood Pressure [Right Arm] Blood Pressure Mean [Right Arm] Blood Pressure Source Blood Pressure Source [Right Arm] 02 Sat by Pulse Oximetry 100 97 98 Oxygen Delivery Method Nasal Cannula Nasal Cannula Nasal Cannula Oxygen Flow Rate (LPM) 3 3 3 08/06/24 13:40 08/06/24 14:00 08/06/24 14:40 Temperature 98.8 F Temperature Source Tympanic Pulse Rate 113 H 112 H Pulse Rate [Right] 117 H Respiratory Rate 20 17 19 Blood Pressure 133/64 122/54 L Blood Pressure [Right Arm] 120/58 L Blood Pressure Mean [Right Arm] 78 Blood Pressure Source Automatic Cuff Blood Pressure Source [Right Arm] Automatic Cuff 02 Sat by Pulse Oximetry 94 L 94 L Oxygen Delivery Method Nasal Cannula Room Air Room Air Oxygen Flow Rate (LPM) 3 Lab Data Lab Results 08/06/24 09:40: Urine Color Yellow, Urine Appearance Clear, Urine pH 7.0, Ur Specific [place] 1.015, Urine Protein 1+ A, Urine Glucose (UA) Negative, Urine Ketones Negative, Urine Blood 2+ A, Urine Nitrate Negative, Urine Bilirubin Negative, Urine Urobilinogen >=8.0, Ur Leukocyte Esterase 3+ A, Urine RBC 3-5, Urine WBC 10-20, Ur Squamous Epith Cells 3-5, Urine Bacteria 1+ 08/06/24 10:01: WBC 15.0 H, RBC 5.08, Hgb 13.4, Hct 41.7, MCV 82.1, MCH 26.4 L, MCHC 32.1, RDW 14.4, Plt Count 293, MPV 9.9, Neut % (Auto) 87.0 H, Lymph % (Auto) 6.6 L, [place] % (Auto) 5.3, Eos % (Auto) 0.3, Baso % (Auto) 0.3, Neut # (Auto) 13.0 H, Lymph # (Auto) 1.0, [place] # (Auto) 0.8, Eos # (Auto) 0.1, Baso # (Auto) 0.0, D-Dimer 1.33 H, VBG pH 7.46 H, VBG pCO2 38.1, VBG pO2 30.8, VBG HCO3 26.5, VBG Total CO2 27.7 H, VBG O2 Saturation 63.3, VBG Base Excess 2.7 H, VBG Lactic Acid 2.6 H, Sodium 137, Potassium 4.2, Chloride 102, Carbon Dioxide 29, Anion Gap 10.2, BUN 15, Creatinine 0.90, Estimated Creat Clear 119, Estimated GFR 65, Est GFR ( Amer) 79, Glucose 130 H, Calcium 9.4, Total Bilirubin 1.7 H, AST 63 H, ALT 40, Alkaline Phosphatase 161 H, Troponin I < 0.01, Total Protein 8.0, Albumin 4.5, Globulin 3.5 H, Albumin/Globulin Ratio 1.3, Lipase 139, HCV Ab SAMY w/Rflx PCR Qn Negative, HIV Ag/Ab Combo Qual Negative 08/06/24 10:01 08/06/24 10:01 Orders (Tests/Meds): ED MEDICATIONS Generic Name Dose Route Start Last Admin Trade Name Freq PRN Reason Stop Dose Admin Acetaminophen 650 mg 08/06/24 14:39 08/06/24 21:29 Acetaminophen 325mg Tab PO 09/05/24 14:38 650 mg Q4HP PRN Administration Fever or Mild Pain (1-3) Doxepin HCl 10 mg 08/07/24 21:00 Doxepin Hcl 10 Mg Capsule PO 09/06/24 20:59 HS SANDRO Enoxaparin Sodium 40 mg 08/07/24 09:00 Enoxaparin 40mg/0.4ml Syringe SUBCUT 09/06/24 08:59 BID SANDRO Famotidine 20 mg 08/06/24 21:34 08/06/24 21:46 Famotidine 20mg/2ml Vial IV 08/06/24 21:35 20 mg ONCE ONE Administration Hydromorphone HCl 1 mg 08/06/24 14:42 08/06/24 21:47 Hydromorphone 2mg/Ml Syringe IV 09/05/24 14:41 1 mg Q4HP PRN Administration Severe Pain (7-10) Hydromorphone HCl 0.5 mg 08/06/24 14:42 Hydromorphone 2mg/Ml Syringe IV 09/05/24 14:41 Q4HP PRN Moderate Pain (4-6) Lactated Ringer's 1,000 mls @ 100 mls/hr 08/06/24 14:45 08/06/24 20:43 Lactated Ringer's 1000 Ml Bag IV 09/05/24 14:44 Not Given .Q10H SANDRO Ceftriaxone Sodium 2 gm/ 100 mls @ 200 mls/hr 08/07/24 09:00 Sodium Chloride IV 08/17/24 08:59 Q24H SANDRO Insulin Human Lispro 0 unit 08/07/24 06:00 Humalog 100 Units/Ml 10ml Vial (Ssi) SUBCUT 09/06/24 05:59 ACHS SANDRO Protocol Metoprolol Succinate 25 mg 08/06/24 22:10 Metoprolol Succinate Xl 25mg Tablet PO 09/05/24 22:09 DAILY SANDRO Non-Formulary Medication 150 mg 08/07/24 09:00 Bupropion Hcl PO 09/06/24 08:59 DAILY SANDRO Ondansetron HCl 4 mg 08/06/24 14:39 08/06/24 21:32 Ondansetron 4mg/2ml Vial IV 09/05/24 14:38 4 mg Q6HP PRN Administration Nausea Promethazine HCl 6.25 mg 08/06/24 21:33 08/06/24 21:46 Promethazine Hcl 25mg/Ml 1ml Vial IV 09/05/24 21:32 6.25 mg Q4HP PRN Administration Nausea And Vomiting Sodium Chloride 10 ml 08/06/24 14:39 Sodium Chloride 0.9% 10ml Flush Syringe IV 09/05/24 14:38 NEEDED PRN Maintain IV Site Sodium Chloride 25 ml 08/06/24 21:33 08/06/24 21:47 Sodium Chloride 0.9% 25ml Bag IV 09/05/24 21:32 25 ml NEEDED PRN Administration for Use with IV Promethazine Sodium Chloride 8 ml 08/06/24 21:34 Sodium Chloride 0.9% 10ml Vial IV 09/05/24 21:33 NEEDED PRN dilute famotidine Discontinued Medications Generic Name Dose Route Start Last Admin Trade Name Freq PRN Reason Stop Dose Admin Adenosine 6 mg 08/06/24 10:43 08/06/24 10:31 Adenosine 6mg/2ml Vial IV 08/06/24 10:44 6 mg ONCE ONE Administration Diphenhydramine HCl 50 mg 08/06/24 10:00 08/06/24 10:22 Diphenhydramine 50mg/Ml Vial IV 08/06/24 10:01 50 mg ONCE ONE Administration Lactated Ringer's 500 mls @ 999 mls/hr 08/06/24 09:54 08/06/24 10:44 Lactated Ringer's 1000 Ml Bag IV 08/06/24 10:24 Not Given .Q31M ONE Lactated Ringer's 1,000 mls @ 999 mls/hr 08/06/24 10:43 08/06/24 10:24 Lactated Ringer's 1000 Ml Bag IV 08/06/24 11:43 999 mls/hr .Q1H1M ONE Administration Ceftriaxone Sodium 2 gm/ 100 mls @ 200 mls/hr 08/06/24 10:44 08/06/24 11:20 Sodium Chloride IV 08/06/24 11:13 200 mls/hr ONCE ONE Administration Lactated Ringer's 500 mls @ 999 mls/hr 08/06/24 11:40 08/06/24 14:27 Lactated Ringer's 1000 Ml Bag IV 08/06/24 12:10 999 mls/hr .Q31M ONE Administration Iopamidol 92 ml 08/06/24 11:07 08/06/24 11:09 Iopamidol-370 (76%);100ml Bottle IV 08/06/24 11:08 92 ml ONCE ONE Administration Morphine Sulfate 4 mg 08/06/24 09:54 08/06/24 10:24 Morphine 4mg/Ml Syringe IV 08/06/24 09:55 4 mg ONCE ONE Administration Morphine Sulfate 4 mg 08/06/24 11:59 08/06/24 12:04 Morphine 4mg/Ml Syringe IV 08/06/24 12:00 4 mg ONCE ONE Administration Ondansetron HCl 4 mg 08/06/24 09:54 08/06/24 10:24 Ondansetron 4mg/2ml Vial IV 08/06/24 09:55 4 mg ONCE ONE Administration Ondansetron HCl 4 mg 08/06/24 12:00 08/06/24 12:03 Ondansetron 4mg/2ml Vial IV 08/06/24 12:01 4 mg ONCE ONE Administration Sodium Chloride 50 ml 08/06/24 11:07 08/06/24 11:09 0.9 % Sodium Chloride 50 Ml Vial IV 08/06/24 11:08 50 ml ONCE ONE Administration Sodium Chloride 10 ml 08/06/24 11:07 08/06/24 11:09 Sodium Chloride 0.9% 10ml Syr (Rad Only) IV 09/05/24 11:06 10 ml NEEDED PRN Administration Maintain IV Site ORDERS Category Date Time Status CT abdomen pelvis w con Stat Cat Scan 08/06/24 09:54 Completed CTA Chest [CT angio chest PE protocol] Stat Cat Scan 08/06/24 10:19 Completed CBC w/Auto Diff [Complete Blood Count Auto Diff] Stat Lab 08/06/24 10:01 Completed CMP [Comprehensive Metabolic Panel] Stat Lab 08/06/24 10:01 Completed D-Dimer Stat Lab 08/06/24 10:01 Completed HIV Combo Stat Lab 08/06/24 10:01 Completed Hepatitis C Ab Qual. W/ RFX Stat Lab 08/06/24 10:01 Completed Troponin I Stat Lab 08/06/24 10:01 Completed UA [Urinalysis and Microscopic] Stat Lab 08/06/24 09:40 Completed Blood Culture Stat Micro 08/06/24 10:51 Received Urine Culture Stat Micro 08/06/24 09:40 Received VBG [Venous Blood Gas] Stat RT 08/06/24 10:01 Completed ECG Data Tracing #1: I reviewed this ECG and interpreted as documented below: Interpreted by me personally at . Normal sinus rhythm with occasional PVC. No ST elevation or depression. Nonspecific T wave inversions in V2. Medical Decision Narrative: Chandni Morales is a 54-year-old female with a history of 6 cardiac stents not on a blood thinner, coronary artery disease, hypertension, hyperlipidemia, status post cholecystectomy, hysterectomy, tubal ligation, who presents to the emergency department for complaints of abdominal pain. Patient states that over the last 3 to 4 days, she has had sharp abdominal pain that is radiating to her right back. She is also reporting pain with urination. She denies any chest pain upon arrival but does report some shortness of breath. She reports some nausea and vomiting over the weekend as well. She denies any bowel habit changes or blood in her stool. On arrival, patient is hypertensive, tachycardic into the 119-125 range. Borderline febrile with temperature of 99.9 ?F. Physical exam, stated above, revealed an overall uncomfortable appearing female in no respiratory distress. Abdomen is diffusely tender without peritonitis. No CVA tenderness but tenderness to the right lumbar paraspinal area. Cardiopulmonary exam is grossly unremarkable except for tachycardia. Differential diagnosis includes, but is not limited to: UTI/pyelonephritis, appendicitis, diverticulitis, ureterolithiasis, ACS, pulmonary embolism, sepsis, among others. Patient's workup in the emergency department included: CBC, CMP, troponin, VBG with lactate, urinalysis, EKG, D-dimer, troponin, lipase, CT abdomen pelvis with IV contrast. Patient was given 1 L of IV fluids. Patient suddenly became significantly more tachycardic into the 180 range and developed sharp chest pains. Defibrillation pads were placed on the patient. Repeat EKG was obtained and showed SVT with a ventricular rate of 186 bpm. Patient's blood pressure was stable at this time. Vagal maneuvers were attempted, however these were unsuccessful. 6 mg of IV adenosine was then administered. Patient's tachycardia improved to the 125 range and P waves are evident on bedside monitor. Repeat EKG showed sinus tachycardia and no ST elevations or depressions. At this time, CT pulmonary embolism was added to patient's workup. Patient does note that she has a contrast allergy and states that she gets hives with IV contrast, however she has had successful contrasted CT scans after Benadryl. Will administer 50 mg of IV Benadryl to help with nausea and vomiting and to pretreat prior to CT as well as IV morphine for pain Laboratory studies show leukocytosis of 15 with neutrophil predominance. D- dimer initially elevated at 1.33. pH mildly elevated at 7.46, pCO2 normal at 38.1, bicarb normal at 26.5. Lactate mildly elevated 2.6. CMP with no YAMEL. Electrolytes within normal limits. Bilirubin mildly elevated at 1.7 with mildly elevated AST of 63. Liver enzymes otherwise unremarkable. Initial troponin less than 0.01. Urine with 3+ leukocyte esterase, 10-20 white blood cells, 1+ bacteria, negative nitrites. Patient was placed on Rocephin 2 g IV for concern for sepsis secondary to pyelonephritis. CT PE negative for pulmonary embolism. No pneumonias. CT abdomen pelvis confirms right-sided perirenal fat stranding concerning for pyelonephritis without abscess. See radiology reports for details. Patient was given additional liter of IV fluids and is felt that she would benefit for admission for continued IV antibiotics. I discussed the patient's case with Dr. Tidwell with the hospital medicine service and they agreed to admit the patient. The patient's tachycardia was slowly improving and was now 110bpm and the pateint was subsequently admitted to the hospitalist service for further management. Critical Care Critical Care Time Critical Care Time: Yes Attestation: On 08/06/24, the high probability of a clinically significant, sudden or life threatening deterioration of the following system(s) required my full and direct attention, intervention and personal management. The time I documented below is in addition to time spent performing reported procedures but includes the following listed in this critical care notation. Total Time Total Critical Care Time: 40
[2024-08-06 09:50] LABS: Microscopic, Urine URINE MICROSCOPIC (MICROSCOPIC)
--- NOTE | 2024-08-06 09:51 | PC.NURSE ---
Dr Dawson at bedside
--- NOTE | 2024-08-06 09:54 | CT_ITS ---
FINAL REPORT TECHNIQUE: After the administration of intravenous contrast, axial images were obtained through the abdomen and pelvis by computed tomography. This study was performed with technique to keep radiation doses as low as reasonably achievable, (ALARA). Individualized dose reduction techniques using automated exposure control or adjustment of the MA and/or KV according to the patient's size were employed. CLINICAL HISTORY: abd pain COMPARISON: 05/14/2021 FINDINGS: Abdomen: The lung bases are clear. The liver is homogeneous. Gallbladder is absent. The spleen is unremarkable. The adrenals are normal. The pancreas is unremarkable. There are multiple areas of abnormal decreased attenuation in both kidneys with stranding in the right perinephric fat. No delayed imaging was provided. Findings are concerning for underlying acute pyelonephritis. The aorta is normal in caliber. There is no free fluid or adenopathy. There is a small to moderate size hiatal hernia. There is moderate disc space narrowing seen at L3-4 and L5-S1. Pelvis: The appendix is not identified. Uterus is anteverted. The urinary bladder is decompressed with wall thickening likely due to incomplete distention. There is no free fluid or adenopathy. IMPRESSION: Areas of decreased attenuation of both kidneys with stranding in the right perinephric fat. Findings are concerning for underlying acute pyelonephritis. Reviewed, Interpreted and Dictated by Kings Rodriguez MD Transcribed by Halle Britton Authenticated and [facility]
[2024-08-06 10:01] LABS: Appearance,Urine CLEAR (Clear); Bilirubin,Urine Negative (Negative); Blood, Urine 2+ (Negative); Color,Urine YELLOW (Yellow); Glucose,Urine (UA) Negative (Negative); Ketones,Urine Negative (Negative); Leukocyte Esterase,Urine 3+ (Negative); Nitrate,Urine Negative (Negative); Protein,Urine 1+ (Negative); Specific Gravity, Urine 1.015 (1.005-1.030); Urobilinogen,Urine >=8.0 EU/dl (0.2)
[2024-08-06 10:10] LABS: Basophils % 0.3 % (0.1-2.0); Eosinophils # 0.1 Kmm3 (0.0-0.4); Eosinophils % 0.3 % (0.1-12.0); Hematocrit 41.7 % (37.0-47.0); Hemoglobin 13.4 g/dL (12.2-16.2); Immature Granulocytes # 0.07 10^3uL; Immature Granulocytes % 0.5 %; Lymphocytes % 6.6 % (10-50); Mean Corpuscular HGB Conc 32.1 g/dL (31.8-35.4); Mean Corpuscular Hemoglobin 26.4 pg (27.0-31.2); Mean Corpuscular Volume 82.1 fl (81-99); Mean Platelet Volume 9.9 fl (7.4-10.4); Monocytes # 0.8 K/mm3 (0.1-1.0); Monocytes % 5.3 % (1.7-9.3); Nucleated Red Blood Cells # 0 10^3/uL; Nucleated Red Blood Cells % 0 %; Platelet Count 293 K/mm3 (142-424); Red Blood Count 5.08 M/mm3 (4.20-5.40); Red Cell Distribution Width 14.4 % (11.5-17.5); Red Cell Distribution Width-SD 43.3 fL
[2024-08-06 10:11] LABS: VBG Base Excess 2.7 mmol/L (-2.4-2.3); VBG HCO3 26.5 mmol/L (23-30); VBG Oxygen Saturation 63.3 % (50-70); VBG PCO2 38.1 mmol/L (35-51); VBG PH 7.46 mmol/L (7.31-7.41); VBG PO2 30.8 mmol/L (28-40); VBG Total CO2 27.7 mmol/L (23-27)
[2024-08-06 10:13] LABS: Lactate Venous 2.6 mmol/L (0.4-2.0)
--- NOTE | 2024-08-06 10:19 | CT_ITS ---
FINAL REPORT TECHNIQUE: The patient was injected with IV contrast. Axial images were obtained through the chest in a PE protocol. 3-D reconstruction images were also performed. Individualized dose reduction techniques using automated exposure control or adjustment of the MA and/or KV according to patient's size were employed. CLINICAL HISTORY: soa, tachy COMPARISON: None FINDINGS: Mediastinal vasculature is adequately opacified. No pulmonary artery filling defects are identified to suggest PE. There is no aortic dissection. There is no axillary adenopathy. There is no hilar or mediastinal adenopathy. The heart size is normal. There is no pericardial or pleural effusion. A small hiatal hernia is present. Limited images of the upper abdomen demonstrate diffuse fatty infiltration of the liver, and patchy decreased areas of attenuation in the kidneys bilaterally, a finding of uncertain significance. Please see CT of the abdomen and pelvis results for further evaluation. No suspicious infiltrate or nodule is identified. IMPRESSION: No pulmonary embolus or dissection. Small hiatal hernia. Patchy decreased areas of attenuation in the kidneys bilaterally, finding of uncertain significance as the kidneys are only partially visualized. Please see CT of the abdomen and pelvis from today's date for further evaluation. Reviewed, Interpreted and Dictated by Kings Rodriguez MD Transcribed by Charu Spaulding Authenticated and [facility]
[2024-08-06 10:20] LABS: Bacteria,Urine 1+ /lpf
--- NOTE | 2024-08-06 10:21 | ECG_ITS ---
APPROVED REPORT Exam: Resting ECG HR:186 bpm ECG Measurements Heart Rate 186 AXES QRSd 99 QRS 134 QT 250 T -11 QTc 346 Conclusion SUPRAVENTRICULAR TACHYCARDIA PATTERN CONSISTENT WITH PULMONARY DISEASE POSSIBLE RIGHT VENTRICULAR HYPERTROPHY [SOME/ALL OF: PROMINENT R IN V1, LATE TRANSITION, RAD, MARTI, SSS] MODERATE ST DEPRESSION [0.05+ mV ST DEPRESSION] ABNORMAL QRS-T ANGLE [QRS-T AXIS DIFFERENCE > 60] CRITICAL TEST RESULT UNCONFIRMED REPORT Electronically signed by : ZAMZAM BARBER, 08/07/2024 01:45:27
[2024-08-06] MEDS: diphenhydrAMINE 50MG/ML VIAL 50 MG IV (10:22)
[2024-08-06] MEDS: ONDANSETRON 4MG/2ML VIAL 4 MG IV ×3 (10:24→21:32)
[2024-08-06] MEDS: LACTATED RINGERS 1000ML 1,000 ML 999 ML IV (10:24)
[2024-08-06] MEDS: MORPHINE 4MG/ML SYRINGE 4 MG IV ×2 (10:24→12:04)
[2024-08-06] MEDS: ADENOSINE 6MG/2ML VIAL 6 MG IV (10:31)
[2024-08-06 10:36] LABS: Alanine Aminotransferase 40 U/L (12-78); Albumin Level 4.5 g/dl (3.5-5.0); Albumin/Globulin Ratio 1.3 (1.1-1.8); Alkaline Phosphatase 161 U/L (38-126); Anion Gap 10.2 mEq/L (5-15); Aspartate Amino Transferase 63 U/L (14-36); Bilirubin,Total 1.7 mg/dl (0.2-1.3); Blood Urea Nitrogen 15 mg/dl (7-17); Calcium 9.4 mg/dl (8.4-10.2); Carbon Dioxide 29 mmol/L (22.0-30.0); Chloride 102 mmol/L (98-107); Creatinine Clearance Estimated 119 mL/min (50-200); Estimated Glomerular Filt Rate 65 ml/min (>60); GFR (African American) 79 ML/MIN (>60); Globulin 3.5 g/dL (1.3-3.2); Glucose 130 mg/dl (74-100); Potassium 4.2 mmoL/L (3.5-5.1); Sodium 137 mmol/L (136-145)
--- NOTE | 2024-08-06 10:37 | ECG_ITS ---
APPROVED REPORT Exam: Resting ECG HR:117 bpm ECG Measurements Heart Rate 117 AXES IA 154 P 50 QRSd 102 QRS 101 QT 320 T 43 QTc 389 Conclusion SINUS TACHYCARDIA RIGHT AXIS DEVIATION [QRS AXIS > 100] ABNORMAL ECG UNCONFIRMED REPORT Electronically signed by : ZAMZAM BARBER, 08/07/2024 01:45:00
[2024-08-06 10:39] LABS: D-Dimer 1.33 ug/mL (0.0-0.5)
[2024-08-06 11:02] LABS: Troponin I < 0.01 ng/ml (0.00-0.034)
--- NOTE | 2024-08-06 11:05 | PC.NURSE ---
pt going for CT at this time. MASON Isbell accompained
[2024-08-06] MEDS: SODIUM CHLORIDE 0.9% 10ML SYR (RAD ONLY) 10 ML IV (11:09)
[2024-08-06] MEDS: 0.9 % SODIUM CHLORIDE 50 ML VIAL IV (11:09)
[2024-08-06] MEDS: IOPAMIDOL-370 (76%);100ML BOTTLE 92 ML IV (11:09)
--- NOTE | 2024-08-06 11:15 | PC.NURSE ---
Patient is back from CT.
[2024-08-06] MEDS: CEFTRIAXONE SODIUM 2 GM in 0.9 % SODIUM CHLORIDE 100 ML IV (11:20)
[2024-08-06 12:59] LABS: HIV Combo NEGATIVE (Negative)
[2024-08-06 13:09] LABS: Hepatitis C Ab Qual. W/ RFX NEGATIVE (Negative)
--- NOTE | 2024-08-06 13:19 | PC.NURSE ---
PHOTOGRAPHY PROFESSOR NOTIFIED OF ADMISSION
--- NOTE | 2024-08-06 13:33 | HMH.PHAINT1 ---
Pharmacy Intervention Comments: MEDICATION RECONCILIATION COMPLETED ON PATIENT USING EXTERNAL FILL HISTORY FROM PHARMACY. -HESHAM MALONEY, YAMILETHD
[2024-08-06 14:14] LABS: Reflex Lactic Add Lactic Reflex
[2024-08-06] MEDS: LACTATED RINGERS 1000ML 500 ML 999 ML IV (14:27)
[2024-08-06 14:56] LABS: Lactic Acid Follow Up (RFLX 1) 1.3 mmol/L (0.7-2.1)
[2024-08-06] MEDS: ACETAMINOPHEN 325MG TAB 650 MG PO ×2 (15:30→21:29)
[2024-08-06 15:40] LABS: Lipase 139 U/L (23-300)
--- NOTE | 2024-08-06 15:50 | CA_ITS ---
APPROVED REPORT EXAM: Comprehensive 2D, Doppler, and color-flow Echocardiogram [place] Equipment Repairer: Erin Cohen RT(R) Ht: 5 ft 3 in Wt: 230lbs BSA: 2.05 BP: 114/68 mmHg Indications: SVT, HTN, hyperlipidemia, CAD, abdominal pain, sepsis, pyelonephritis. M-Mode Dimensions RVDd 2.98 cm (0.9-2.6) LA Diam 2.96 cm (1.9-4.0) LVDd 3.93 cm (3.5-5.7) LVDs 2.95 cm (3.5-5.7) IVSd 0.92 cm (0.6-1.1) PWd 0.72 cm (0.6-1.1) EF (Teich) 49.90% FS 24.90% EDV (Teich) 67.10 mL ESV (Teich) 33.60 mL LV Diastology E Decel Time 163 (160-240 msec) E/A Ratio 0.8 Mitral Valve MV E Max Mahad. 78.0 (40-130 cm/s) MV A Velocity 99.0 (40-130 cm/s) E/A Ratio 0.79 MV PHT 48.0 ms Left Ventricle The left ventricle is normal size. The left ventricular systolic function is normal. The left ventricular ejection fraction is within the normal range. There is increased LV wall thickness. There is normal LV segmental wall motion. Diastolic function is indeterminate. LVEF is 55%. Right Ventricle The right ventricle is normal in size. The right ventricular systolic function is normal. Atria The left atrium size is normal. The right atrium size is normal. There is no Doppler evidence of interatrial shunt. Aortic Valve Aortic valve is mildly thickened. There is no aortic valvular stenosis. No aortic regurgitation is present. Mitral Valve The mitral valve is normal in structure. Trace mitral regurgitation. Tricuspid Valve Tricuspid valve is grossly normal in structure and function. Trace tricuspid regurgitation. There is insufficient TR jet to estimate RVSP. Pulmonic Valve The pulmonary valve is normal in structure. Trace pulmonic regurgitation. Great Vessels The aortic root is normal in size. IVC is normal in size and collapses >50% with inspiration.. Pericardium There is no pericardial effusion. Other Information Study Quality: Fair Conclusion Normal biventricular systolic function. No significant valvular stenosis or regurgitation. Electronically signed by : Samaria Layton MD 08/06/2024 23:32:31
[2024-08-06] MEDS: HYDROMORPHONE 2MG/ML SYRINGE 1 MG IV ×2 (18:37→21:47)
--- NOTE | 2024-08-06 21:38 | EXP.EVENT.NO ---
Problem patient having nausea with active vomiting. exam some abdominal pain with nausea and vomiting at this time, patient is alert able to answer questions. Very uncomfortable plan patient has Zofran ordered every 6 hours is receiving it now also have added Phenergan if the Zofran is not adequate for controlling nausea., 22:52 patient reported itching all over., No signs of hives, had received contrast material earlier today. With Zofran no longer vomiting. Will add Benadryl 25 mg IV every 4 hours as needed for itching but will give 1 dose of 20 mg of Solu-Medrol IV now. There is no respiratory distress and no hives at this point in time. 01:52: Patient is tacky above 100 heart rate. EKG showed a significantly elevated heart rate but nurse tells me it is not that high right now. 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 Noting positive blood culture for E. coli has returned. Patient is presently on IV antibiotic coverage.
[2024-08-06] MEDS: PROMETHAZINE HCL 25MG/ML 1ML VIAL 6.25 MG IV (21:46)
[2024-08-06] MEDS: FAMOTIDINE 20MG/2ML VIAL 20 MG IV (21:46)
[2024-08-06] MEDS: SODIUM CHLORIDE 0.9% 25ML BAG 25 ML IV (21:47)
--- NOTE | 2024-08-06 21:51 | P.HP_ITS ---
History of Present Illness *Admission Date: 08/06/24 *Reason for visit:: Abdominal pain, fever/chills, nausea vomiting *History of present illness: Chandni Dinero is a 59-year-old female with a medical history significant for CAD with 6 stents, type 2 diabetes, hypothyroidism, anxiety/depression presents with 3-day onset of abdominal pain radiating to the back, nausea/vomiting, fever/chills. No significant urinary symptoms. No chest pain, shortness of breath. On arrival, septic with tachycardia, temperature 102.7, WBC 15.0. UA grossly abnormal, pending urine culture. D-dimer elevated, CTA chest without PE. CT abdomen/pelvis showed suggestive of pyonephritis. Case discussed with ED provider and decision was made to admit patient for sepsis secondary to bilateral pyelonephritis. [facility] Disclaimer: The information contained in this section may have been updated after the patient was seen, as this information can be updated by other users. Medical History (Updated 08/06/24 @ 15:10 by Gretchen Isbell RN) Conjunctivitis History of COVID-19 Sinus headache Migraine Anxiety Depression Arthritis Gallbladder disease Hypothyroid Allergies Hyperlipidemia Hypertension CAD (coronary artery disease) Coughing Surgical History History of knee replacement History of surgery H/O tubal ligation History of cholecystectomy Family History Other Cancer Diabetes Social History (Updated 08/06/24 @ 16:36 by Nadia Moon RN) Smoking Status: Never smoker alcohol intake: never substance use type: denies use current occupational status: unemployed Travel in the last 8 weeks?: None household members: spouse housing: house marital status: education level: high school current occupational exposures/hazards: No caffeine: No special ivan needs: No agree to transfusion: No working smoke detector in home: No fire extinguisher in home: No carbon monox detector in home: No do you feel safe at home: Yes victim of physical abuse: No victim of emotional abuse: No victim of sexual abuse: No would you like helpful sources: No Have you lived/traveled outside [place] in past 30 days?: No Contact w/someone who lives/traveled outside US past 30 days?: No Exposure to someone with infectious disease in past 14 days?: No Do you have a fever (greater than 100.4 F or 38 C)?: No Have you tested positive for COVID-19?: No Exposed to someone with COVID-19 in past 14 days?: No Do you have a sore throat?: No Do you have a cough?: No Do you have any weakness?: No Are you experiencing any nausea/vomitting?: No Do you have any diarrhea?: No Are you experiencing any unusual bleeding?: No Do you have any muscle aches/pain?: No Do you have any abdominal pain?: Yes Are you experiencing loss of taste or smell?: No Other Medical History Have you received the Flu Vaccine for this season: No Have you received the Pneumonia Vaccine: No Meds Home Medications and Allergies Home Medications ?Medication ?Instructions ?Recorded ?Confirmed ?Type bupropion HCl 150 mg 24 hr tablet, 150 mg PO DAILY 12/27/23 08/06/24 History extended release doxepin 10 mg capsule 10 mg PO HS 12/27/23 08/06/24 History levothyroxine 150 mcg tablet 150 mcg PO DAILY 12/27/23 08/06/24 History rosuvastatin 5 mg tablet 5 mg PO DAILY 12/27/23 08/06/24 History aspirin 81 mg tablet,delayed 81 mg PO DAILY 06/02/24 08/06/24 History release (Adult Low Dose Aspirin) mirabegron 25 mg tablet,extended 25 mg PO DAILY 06/14/24 08/06/24 History release 24 hr (Myrbetriq) metformin 500 mg tablet 500 mg PO BID 08/06/24 08/06/24 History semaglutide 0.25 mg or 0.5 mg (2 0.5 mg SQ WEEKLY 08/06/24 08/06/24 History mg/3 mL) subcutaneous pen injector (Ozempic) New Prescriptions to Start Prescriptions: Allergies Allergy/AdvReac Type Severity Reaction Status Date / Time Penicillins (PENICILLINS) Allergy Intermediate ITCHING Verified 06/14/24 11:12 morphine (MORPHINE) Allergy Mild ITCHING Verified 06/14/24 11:12 Iodinated Contrast Media AdvReac Intermediate HIVES,COUGH,NAUSEA,DIZZY Verified 06/14/24 11:12 (Iodinated Contrast Media - - NEED TO Oral and) PREMED BEFORE GIVING Exam Data for Last 24 hours Vital signs and Labs for Last 24 Hours: Temp Pulse Resp BP Pulse Ox O2 Del Method O2 Flow Rate 99.6 F 108 H 18 161/74 H 92 L Room Air 3 08/06/24 20:00 08/06/24 20:00 08/06/24 20:00 08/06/24 20:00 08/06/24 20:00 08/06/24 20:46 08/06/24 13:40 Laboratory Results - last 24 hr 08/06/24 09:40: Urine Color Yellow, Urine Appearance Clear, Urine pH 7.0, Ur Specific [place] 1.015, Urine Protein 1+ A, Urine Glucose (UA) Negative, Urine Ketones Negative, Urine Blood 2+ A, Urine Nitrate Negative, Urine Bilirubin Negative, Urine Urobilinogen >=8.0, Ur Leukocyte Esterase 3+ A, Urine RBC 3-5, Urine WBC 10-20, Ur Squamous Epith Cells 3-5, Urine Bacteria 1+ 08/06/24 10:01: WBC 15.0 H, RBC 5.08, Hgb 13.4, Hct 41.7, MCV 82.1, MCH 26.4 L, MCHC 32.1, RDW 14.4, Plt Count 293, MPV 9.9, Neut % (Auto) 87.0 H, Lymph % (Auto) 6.6 L, [place] % (Auto) 5.3, Eos % (Auto) 0.3, Baso % (Auto) 0.3, Neut # (Auto) 13.0 H, Lymph # (Auto) 1.0, [place] # (Auto) 0.8, Eos # (Auto) 0.1, Baso # (Auto) 0.0, D-Dimer 1.33 H, VBG pH 7.46 H, VBG pCO2 38.1, VBG pO2 30.8, VBG HCO3 26.5, VBG Total CO2 27.7 H, VBG O2 Saturation 63.3, VBG Base Excess 2.7 H, VBG Lactic Acid 2.6 H, Sodium 137, Potassium 4.2, Chloride 102, Carbon Dioxide 29, Anion Gap 10.2, BUN 15, Creatinine 0.90, Estimated Creat Clear 119, Estimated GFR 65, Est GFR ( Amer) 79, Glucose 130 H, Calcium 9.4, Total Bilirubin 1.7 H, AST 63 H, ALT 40, Alkaline Phosphatase 161 H, Troponin I < 0.01, Total Protein 8.0, Albumin 4.5, Globulin 3.5 H, Albumin/Globulin Ratio 1.3, Lipase 139, HCV Ab SAMY w/Rflx PCR Qn Negative, HIV Ag/Ab Combo Qual Negative 08/06/24 14:38: Lactate 1.3 I & O for Last 24 hours: Intake & Output 08/03/24 08/04/24 08/05/24 08/06/24 23:59 23:59 23:59 23:59 Intake Total 1769 Output Total 0 / 0 Balance 1769 Weight 104.326 kg Constitutional Constitutional: no acute distress and obese *Routine HEENT Exam Head: Present normocephalic Eye: Present EOMI and PERRL ENT: Present mucous membranes moist *Routine Neck Exam Neck: Present supple; Absent lymphadenopathy *Routine Respiratory Exam Respiratory: Present CTA bilaterally *Routine Cardiovascular Exam Cardiovascular: Present RRR *Routine Abdominal Exam Abdominal: Present soft, normoactive bowel sounds and tenderness Comments: Bilateral flank tenderness. *Routine Rectal Exam Rectal:: deferred *Routine Genitalia Exam Genitalia:: deferred *Routine Extremities Exam Extremities: Absent cyanosis, clubbing or edema *Routine Skin Exam Skin: Present warm; Absent rash *Routine Neurological Exam Neurological: Present alert and oriented X3 Assessment and Plan *Assessment and plan (1) Pyelonephritis: Status: Acute Category: Medical Code(s): N12 - Tubulo-interstitial nephritis, not specified as acute or chronic Plan Chandni Dinero is a 59-year-old female with a medical history significant for CAD with 6 stents, type 2 diabetes, hypothyroidism, anxiety/depression presents with 3-day onset of abdominal pain radiating to the back, nausea/vomiting, fever/chills. No significant urinary symptoms. No chest pain, shortness of breath. On arrival, septic with tachycardia, temperature 102.7, WBC 15.0. UA grossly abnormal, pending urine culture. D-dimer elevated, CTA chest without PE. CT abdomen/pelvis showed suggestive of pyonephritis. Of note, patient reportedly went into SVT in the ED with heart rate in the 170s that improved with adenosine 6 mg. Case discussed with ED provider and decision was made to admit patient for sepsis secondary to bilateral pyelonephritis. #Sepsis #Bilateral pyelonephritis ? Septic findings and CT findings as above. ? Started IV ceftriaxone 2 g daily. No known former cultures here. ? Per fill history, was started on mirabegron for overactive bladder in April 2024. May be causing decreased bladder output and UTIs. Hold for now. ? Follow-up blood, urine culture. ? LR at 100 mL/h. ? Dilaudid, Zofran as needed. ? Renal function stable, creatinine 0.90, GFR 65. ? Follow-up CBC, CMP in the morning. #SVT ? Improved with adenosine. Follow-up ECHO. ? Started metoprolol succinate 25 mg. ? Continuous cardiac telemetry. #Supratherapeutic hypothyroidism ? TSH very low since 2018. Supratherapeutic levothyroxine. ? Will obtain more thyroid history in the morning. Hold levothyroxine for now. ? Follow-up Ivan's antibodies in the morning. #Type 2 diabetes ? Follow-up hemoglobin A1c in the morning. ? ACHS glucose checks, LDSSI. #CAD with stents ? Continue home aspirin. Hold statin due to sepsis. #Anxiety/depression ? Continue home bupropion, doxepin. Full code DVT prophylaxis: Lovenox 40 mg twice daily
[2024-08-06] MEDS: diphenhydrAMINE 50MG/ML VIAL 25 MG IV (22:55)
[2024-08-06] MEDS: METHYLPREDNISOLONE SOD SUCC 40MG VIAL 20 MG IV (23:06)
[2024-08-06] MEDS: METOPROLOL SUCCINATE XL 25MG TABLET 25 MG PO (23:06)
[2024-08-07] VITALS (8 sets, daily range): BP systolic 108–128; BP diastolic 54–63; PULSE 55–100; RESP 14–18; TEMP 36.4–37.3; O2SAT 91–98; BMI 42.2
[2024-08-07] MEDS: LACTATED RINGERS 1000ML 1,000 ML 100 ML IV (00:45)
[2024-08-07] MEDS: ACETAMINOPHEN 325MG TAB 650 MG PO ×3 (03:05→23:52)
--- NOTE | 2024-08-07 06:22 | PC.NURSE ---
V/s, ox4. Son at bedside. Pt c/o nausea and pain, treated per MAY. Pt c/o iching, provider notified, see MAR for new orders. Blood glucose monitored. Plan of care ongoing.
[2024-08-07 06:28] LABS: Thyroglobulin by RIA ND
--- NOTE | 2024-08-07 06:28 | PC.NURSE ---
pt refused insulin. Stated she's not diabetic. Pt is on steroids.
[2024-08-07 06:31] LABS: Basophils % 0.2 % (0.1-2.0); Hematocrit 36.3 % (37.0-47.0); Immature Granulocytes # 0.06 10^3uL; Immature Granulocytes % 0.6 %; Lymphocytes # 0.7 K/mm3 (0.7-4.5); Lymphocytes % 7.5 % (10-50); Mean Corpuscular HGB Conc 31.1 g/dL (31.8-35.4); Mean Corpuscular Hemoglobin 25.7 pg (27.0-31.2); Mean Corpuscular Volume 82.7 fl (81-99); Monocytes # 0.3 K/mm3 (0.1-1.0); Neutrophils # 8.4 K/mm3 (1.8-7.8); Neutrophils % 88.7 % (37.0-80.0); Nucleated Red Blood Cells # 0 10^3/uL; Nucleated Red Blood Cells % 0 %; Platelet Count 240 K/mm3 (142-424); Red Blood Count 4.39 M/mm3 (4.20-5.40); Red Cell Distribution Width 14.2 % (11.5-17.5); Red Cell Distribution Width-SD 42.5 fL; White Blood Count 9.5 K/mm3 (4.8-10.8)
[2024-08-07 06:50] LABS: Alanine Aminotransferase 43 U/L (12-78); Albumin Level 3.7 g/dl (3.5-5.0); Albumin/Globulin Ratio 1.2 (1.1-1.8); Alkaline Phosphatase 184 U/L (38-126); Anion Gap 6.7 mEq/L (5-15); Aspartate Amino Transferase 51 U/L (14-36); Bilirubin,Total 0.8 mg/dl (0.2-1.3); Blood Urea Nitrogen 14 mg/dl (7-17); Carbon Dioxide 29 mmol/L (22.0-30.0); Chloride 103 mmol/L (98-107); Creatinine Clearance Estimated 64 mL/min (50-200); Estimated Glomerular Filt Rate 75 ml/min (>60); GFR (African American) 91 ML/MIN (>60); Globulin 3.2 g/dL (1.3-3.2); Glucose 159 mg/dl (74-100); Magnesium 2.3 mg/dl (1.6-2.3); Potassium 3.7 mmoL/L (3.5-5.1); Sodium 135 mmol/L (136-145); Total Protein,Serum 6.9 g/dl (6.3-8.2)
[2024-08-07 06:56] LABS: Hemoglobin 11.4 g/dL (12.2-16.2)
--- NOTE | 2024-08-07 08:03 | EXP.ACUTE.PN ---
Subjective *Date: 08/07/24 *Time: 17:13 Interval history: Stable on room air. Fever of 102.7 overnight. Blood cultures returned positive for E. coli. White count showing improvement this morning. Tolerating p.o. intake. Denies nausea or vomiting. No chest pain. Having intermittent abdominal pain that radiates to her right flank. Medical Exam Vital signs and Labs for Last 24 Hours: Vital Signs Temp Pulse Pulse Resp BP BP Pulse Ox 08/07/24 06:21 08/07/24 06:00 70 08/07/24 05:00 08/07/24 04:00 97.9 F 74 14 119/60 96 08/07/24 03:00 08/07/24 01:00 08/07/24 00:00 95 H 08/07/24 00:00 99.2 F 100 H 14 128/63 91 L 08/06/24 23:00 08/06/24 20:46 08/06/24 20:00 08/06/24 20:00 95 H 08/06/24 20:00 99.6 F 108 H 18 161/74 H 92 L 08/06/24 18:32 08/06/24 17:05 08/06/24 16:00 120 H 08/06/24 16:00 08/06/24 15:30 102.7 F H 08/06/24 15:12 08/06/24 14:40 98.8 F 112 H 19 122/54 L 08/06/24 14:00 117 H 17 120/58 L 94 L 08/06/24 13:40 113 H 20 133/64 94 L 08/06/24 13:30 112 H 15 134/67 98 08/06/24 13:20 110 H 19 143/69 H 97 08/06/24 13:10 112 H 19 137/73 100 08/06/24 13:00 113 H 20 150/72 H 100 08/06/24 12:50 110 H 24 138/71 96 08/06/24 12:40 113 H 16 150/71 H 100 08/06/24 12:30 115 H 21 135/68 100 08/06/24 12:20 116 H 16 142/74 H 100 08/06/24 12:10 109 H 12 134/68 100 08/06/24 12:03 112 H 17 135/72 100 08/06/24 12:00 115 H 23 135/11 L 100 08/06/24 11:50 114 H 15 116/65 100 08/06/24 11:40 15 131/66 100 08/06/24 11:31 22 131/63 100 08/06/24 11:20 113 H 18 138/77 100 08/06/24 10:51 175 H 99 08/06/24 10:15 185 H 97 08/06/24 10:15 184 H 24 100 08/06/24 10:05 178 H 126/62 96 08/06/24 09:51 99.9 F H 119 H 22 147/55 H 98 08/06/24 09:50 119 H 147/55 H 100 O2 Del Method O2 Flow Rate 08/07/24 06:21 Room Air 08/07/24 06:00 08/07/24 05:00 Room Air 08/07/24 04:00 Room Air 08/07/24 03:00 Room Air 08/07/24 01:00 Room Air 08/07/24 00:00 08/07/24 00:00 Room Air 08/06/24 23:00 Room Air 08/06/24 20:46 Room Air 08/06/24 20:00 Room Air 08/06/24 20:00 08/06/24 20:00 Room Air 08/06/24 18:32 Room Air 08/06/24 17:05 Room Air 08/06/24 16:00 08/06/24 16:00 Room Air 08/06/24 15:30 08/06/24 15:12 Room Air 08/06/24 14:40 Room Air 08/06/24 14:00 Room Air 08/06/24 13:40 Nasal Cannula 3 08/06/24 13:30 Nasal Cannula 3 08/06/24 13:20 Nasal Cannula 3 08/06/24 13:10 Nasal Cannula 3 08/06/24 13:00 08/06/24 12:50 08/06/24 12:40 08/06/24 12:30 08/06/24 12:20 08/06/24 12:10 08/06/24 12:03 08/06/24 12:00 08/06/24 11:50 08/06/24 11:40 Nasal Cannula 3 08/06/24 11:31 Nasal Cannula 3 08/06/24 11:20 Nasal Cannula 3 08/06/24 10:51 Room Air 08/06/24 10:15 08/06/24 10:15 Room Air 08/06/24 10:05 Room Air 08/06/24 09:51 Room Air 08/06/24 09:50 Room Air Intake and Output 08/06/24 08/07/24 08/07/24 23:59 07:59 15:59 Intake Total 270 / 2290 520 / 520 Output Total 0 / 0 Balance 270 / 2290 520 / 520 Intake: Intake, Oral Amount 270 / 390 120 / 120 Intake, Total IV Amount 400 / 400 Lactated Ringers 1000ML 1,000 400 / 400 ml @ 100 mls/hr IV .Q10H [facility] Rx #:[id number] Output: Output, Urine Amount 0 / 0 Other: Number of Unmeasured Voids 1 Weight 108.091 kg Patient Weight 08/07/24 23:59 Weight 108.091 kg Laboratory Results - last 24 hr 08/06/24 09:40: Urine Color Yellow, Urine Appearance Clear, Urine pH 7.0, Ur Specific [place] 1.015, Urine Protein 1+ A, Urine Glucose (UA) Negative, Urine Ketones Negative, Urine Blood 2+ A, Urine Nitrate Negative, Urine Bilirubin Negative, Urine Urobilinogen >=8.0, Ur Leukocyte Esterase 3+ A, Urine RBC 3-5, Urine WBC 10-20, Ur Squamous Epith Cells 3-5, Urine Bacteria 1+ 08/06/24 10:01: WBC 15.0 H, RBC 5.08, Hgb 13.4, Hct 41.7, MCV 82.1, MCH 26.4 L, MCHC 32.1, RDW 14.4, Plt Count 293, MPV 9.9, Neut % (Auto) 87.0 H, Lymph % (Auto) 6.6 L, [place] % (Auto) 5.3, Eos % (Auto) 0.3, Baso % (Auto) 0.3, Neut # (Auto) 13.0 H, Lymph # (Auto) 1.0, [place] # (Auto) 0.8, Eos # (Auto) 0.1, Baso # (Auto) 0.0, D-Dimer 1.33 H, VBG pH 7.46 H, VBG pCO2 38.1, VBG pO2 30.8, VBG HCO3 26.5, VBG Total CO2 27.7 H, VBG O2 Saturation 63.3, VBG Base Excess 2.7 H, VBG Lactic Acid 2.6 H, Sodium 137, Potassium 4.2, Chloride 102, Carbon Dioxide 29, Anion Gap 10.2, BUN 15, Creatinine 0.90, Estimated Creat Clear 119, Estimated GFR 65, Est GFR ( Amer) 79, Glucose 130 H, Calcium 9.4, Total Bilirubin 1.7 H, AST 63 H, ALT 40, Alkaline Phosphatase 161 H, Troponin I < 0.01, Total Protein 8.0, Albumin 4.5, Globulin 3.5 H, Albumin/Globulin Ratio 1.3, Lipase 139, HCV Ab SAMY w/Rflx PCR Qn Negative, HIV Ag/Ab Combo Qual Negative 08/06/24 14:38: Lactate 1.3 08/07/24 06:07: WBC 9.5 D, RBC 4.39, Hgb 11.4 L D, Hct 36.3 L, MCV 82.7, MCH 25.7 L, MCHC 31.1 L, RDW 14.2, Plt Count 240, MPV 10.0, Neut % (Auto) 88.7 H, Lymph % (Auto) 7.5 L, [place] % (Auto) 3.0, Eos % (Auto) 0.0 L, Baso % (Auto) 0.2, Neut # (Auto) 8.4 H, Lymph # (Auto) 0.7, [place] # (Auto) 0.3, Eos # (Auto) 0.0, Baso # (Auto) 0.0, Sodium 135 L, Potassium 3.7, Chloride 103, Carbon Dioxide 29, Anion Gap 6.7, BUN 14, Creatinine 0.80, Estimated Creat Clear 64, Estimated GFR 75, Est GFR ( Amer) 91, Glucose 159 H D, Calcium 9.0, Magnesium 2.3, Total Bilirubin 0.8, AST 51 H, ALT 43, Alkaline Phosphatase 184 H, Total Protein 6.9, Albumin 3.7 D, Globulin 3.2, Albumin/Globulin Ratio 1.2 I & O for Labs for Last 24 Hours: Intake & Output 08/04/24 08/05/24 08/06/24 08/07/24 23:59 23:59 23:59 23:59 Intake Total 1770 / 2290 520 / 520 Output Total 0 / 0 0 / 0 Balance 1770 / 2290 520 / 520 Weight 104.326 kg 108.091 kg Microbiology Reports for the Last 24 Hours: Microbiology 08/06/24 10:01 Blood Blood Culture - Preliminary Constitutional: Present mild distress, morbidly obese, chronically ill appearing and cooperative Head: Present atraumatic and normocephalic ENT: Present normal exam Respiratory: Present normal respiratory effort; Absent respiratory distress, rhonchi, stridor or wheezes Cardiac: Present Reg Rate and Rhythm GI: Present tenderness (Nonfocal) and normal bowel sounds; Absent distention Extremities: Present normal inspection and full ROM Skin: Present intact; Absent erythema Neuro: Present Grossly Intact, alert, awake, oriented x 3 and moves all extremities Assessment and Plan *Assessment and plan (1) Sepsis: Status: Acute Category: Medical Code(s): A41.9 - Sepsis, unspecified organism (2) Pyelonephritis: Status: Acute Category: Medical Code(s): N12 - Tubulo-interstitial nephritis, not specified as acute or chronic (3) E coli bacteremia: Status: Acute Category: Medical Code(s): R78.81 - Bacteremia; B96.20 - Unspecified Escherichia coli [E. coli] as the cause of diseases classified elsewhere (4) Morbid obesity with body mass index (BMI) of 40.0 to 49.9: Status: Acute Category: Medical Code(s): E66.01 - Morbid (severe) obesity due to excess calories (5) HTN (hypertension): Status: Chronic Qualifiers: Hypertension type: primary hypertension Qualified Code(s): I10 - Essential (primary) hypertension Category: Medical Code(s): I10 - Essential (primary) hypertension (6) Hypothyroid: Status: Chronic Category: Medical Code(s): E03.9 - Hypothyroidism, unspecified Plan Chandni Dinero is a 59-year-old female with a medical history significant for CAD with 6 stents, type 2 diabetes, hypothyroidism, anxiety/depression presents with 3-day onset of abdominal pain radiating to the back, nausea/vomiting, fever/chills. No significant urinary symptoms. No chest pain, shortness of breath. On arrival, septic with tachycardia, temperature 102.7, WBC 15.0. UA grossly abnormal, pending urine culture. D-dimer elevated, CTA chest without PE. CT abdomen/pelvis showed suggestive of pyonephritis. Of note, patient reportedly went into SVT in the ED with heart rate in the 170s that improved with adenosine 6 mg. Case discussed with ED provider and decision was made to admit patient for sepsis secondary to bilateral pyelonephritis. Found to be positive for E. coli in her blood. Continues to require inpatient management. Anticipate discharge in the next day or 2. Problems addressed as follows: #Sepsis #Bilateral pyelonephritis secondary to E. coli complicated by bacteremia ? Septic findings and CT findings as above. -Discontinue ceftriaxone, transition to Levaquin 750 mg daily. Will complete at least 10 days of antibiotics due to positive blood cultures. Awaiting coli to speciate out with sensitivities. -Continue Toradol 30 mg IV as needed for pain every 6 hours. Continue hydrocodone 5 mg every 4 hours for breakthrough pain -Tolerating p.o., discontinue IV fluid - Zofran 4 mg ODT every 6 hours for nausea - Kidney function stable with BUN 14, creatinine 0.8. Electrolytes normal with magnesium 2.3, potassium 3.7. White count normalized from 15-9.5. Repeat CBC, CMP, magnesium ordered for the morning #SVT ? Improved with adenosine. Follow-up ECHO. ? Started metoprolol succinate 25 mg. ? Continuous cardiac telemetry. #Supratherapeutic hypothyroidism ? TSH very low since 2019. Supratherapeutic levothyroxine. ? Decrease levothyroxine to 125mcg daily #Type 2 diabetes: A1c ordered for the morning. Continue sliding scale insulin with fingersticks ACHS. Morning glucose 159 #CAD with stents: Continue home aspirin. Hold statin due to sepsis. #Anxiety/depression: Continue home bupropion, doxepin. Full code DVT prophylaxis: Lovenox 40 mg twice daily Regular diet
[2024-08-07] MEDS: buPROPion HCl SR 150MG TAB 150 MG PO (08:17)
[2024-08-07] MEDS: ENOXAPARIN 40MG/0.4ML SYRINGE 40 MG SUBCUT ×2 (08:18→20:32)
[2024-08-07] MEDS: METOPROLOL SUCCINATE XL 25MG TABLET 25 MG PO (08:18)
[2024-08-07] MEDS: HYDROMORPHONE 2MG/ML SYRINGE 0.5 MG IV (09:08)
[2024-08-07] MEDS: CEFTRIAXONE SODIUM 2 GM in 0.9 % SODIUM CHLORIDE 100 ML IV (09:08)
[2024-08-07] MEDS: ONDANSETRON 4MG ODT 4 MG SL ×2 (11:29→23:54)
[2024-08-07] MEDS: humaLOG 100 UNITS/ML 10ML VIAL (SSI) SUBCUT (11:34)
[2024-08-07 11:38] LABS: POC Glucose,Bedside 151 (70-110)
[2024-08-07] MEDS: KETOROLAC 30MG/ML VIAL 30 MG IV (12:00)
--- NOTE | 2024-08-07 15:17 | PC.NURSE ---
VS stable and patient remained on room air. Headache and abdomen pain managed with prn medications. Patient up to chair for lunch. Lung sounds clear.
[2024-08-07 15:24] LABS: POC Glucose,Bedside 152 (70-110)
[2024-08-07] MEDS: HYDROCODONE/APAP 5/325 MG TABLET 1 TAB PO (16:14)
[2024-08-07 16:23] LABS: POC Glucose,Bedside 118 (70-110)
[2024-08-07] MEDS: DOXEPIN HCL 10 MG CAPSULE PO (20:32)
[2024-08-07 20:41] LABS: POC Glucose,Bedside 142 (70-110)
[2024-08-07] MEDS: diphenhydrAMINE 50MG/ML VIAL 25 MG IV (23:41)
[2024-08-08] VITALS: BP 151/74; PULSE 66; RESP 18; TEMP 36.6; O2SAT 97
[2024-08-08] MEDS: KETOROLAC 30MG/ML VIAL 30 MG IV (00:32)
[2024-08-08] MEDS: HYDROCODONE/APAP 5/325 MG TABLET 1 TAB PO (00:57)
--- NOTE | 2024-08-08 03:31 | PC.NURSE ---
Pt AOx4. Doing well through most of the shift. Started complaining of pain around midnight, relieved with prn norco. Pt is currently resting in bed with eyes closed. Respirations even and unlabored. Bed is low, locked, and call light is in reach.
[2024-08-08 03:43] VITALS: BP 98/47; PULSE 65; RESP 16; TEMP 36.6; O2SAT 96
[2024-08-08 04:00] VITALS: BMI 42.5
[2024-08-08 05:35] LABS: POC Glucose,Bedside 99 (70-110)
[2024-08-08 06:46] LABS: Basophils % 0.3 % (0.1-2.0); Eosinophils # 0.1 Kmm3 (0.0-0.4); Eosinophils % 1.1 % (0.1-12.0); Hematocrit 34.3 % (37.0-47.0); Hemoglobin 10.6 g/dL (12.2-16.2); Immature Granulocytes # 0.04 10^3uL; Immature Granulocytes % 0.4 %; Lymphocytes # 1.9 K/mm3 (0.7-4.5); Lymphocytes % 20.8 % (10-50); Mean Corpuscular HGB Conc 30.9 g/dL (31.8-35.4); Mean Corpuscular Hemoglobin 25.7 pg (27.0-31.2); Mean Corpuscular Volume 83.3 fl (81-99); Mean Platelet Volume 10.3 fl (7.4-10.4); Monocytes # 0.6 K/mm3 (0.1-1.0); Monocytes % 6.3 % (1.7-9.3); Neutrophils # 6.3 K/mm3 (1.8-7.8); Neutrophils % 71.1 % (37.0-80.0); Nucleated Red Blood Cells # 0 10^3/uL; Nucleated Red Blood Cells % 0 %; Platelet Count 235 K/mm3 (142-424); Red Blood Count 4.12 M/mm3 (4.20-5.40); Red Cell Distribution Width 14.2 % (11.5-17.5); Red Cell Distribution Width-SD 42.9 fL; White Blood Count 8.9 K/mm3 (4.8-10.8)
[2024-08-08 07:07] LABS: Alanine Aminotransferase 47 U/L (12-78); Albumin Level 3.1 g/dl (3.5-5.0); Alkaline Phosphatase 168 U/L (38-126); Anion Gap 6.2 mEq/L (5-15); Aspartate Amino Transferase 56 U/L (14-36); Bilirubin,Total 0.3 mg/dl (0.2-1.3); Blood Urea Nitrogen 20 mg/dl (7-17); Calcium 8.9 mg/dl (8.4-10.2); Carbon Dioxide 32 mmol/L (22.0-30.0); Chloride 104 mmol/L (98-107); Creatinine Clearance Estimated 57 mL/min (50-200); Estimated Glomerular Filt Rate 65 ml/min (>60); GFR (African American) 79 ML/MIN (>60); Globulin 3.1 g/dL (1.3-3.2); Glucose 101 mg/dl (74-100); Potassium 3.2 mmoL/L (3.5-5.1); Sodium 139 mmol/L (136-145); Total Protein,Serum 6.2 g/dl (6.3-8.2)
--- NOTE | 2024-08-08 07:17 | EXP.DC.SUM ---
General Admission date:: 08/06/24 Discharge date: 08/08/24 HPI HPI HPI: Chandni Dinero is a 59-year-old female with a medical history significant for CAD with 6 stents, type 2 diabetes, hypothyroidism, anxiety/depression presents with 3-day onset of abdominal pain radiating to the back, nausea/vomiting, fever/chills. No significant urinary symptoms. No chest pain, shortness of breath. On arrival, septic with tachycardia, temperature 102.7, WBC 15.0. UA grossly abnormal, pending urine culture. D-dimer elevated, CTA chest without PE. CT abdomen/pelvis showed suggestive of pyonephritis. Case discussed with ED provider and decision was made to admit patient for sepsis secondary to bilateral pyelonephritis. Hospital Course Hospital Course Hospital Course: Chandni Dinero is a 59-year-old female with a medical history significant for CAD with 6 stents, type 2 diabetes, hypothyroidism, anxiety/depression presents with 3-day onset of abdominal pain radiating to the back, nausea/vomiting, fever/chills. No significant urinary symptoms. No chest pain, shortness of breath. On arrival, septic with tachycardia, temperature 102.7, WBC 15.0. UA grossly abnormal, pending urine culture. D-dimer elevated, CTA chest without PE. CT abdomen/pelvis showed suggestive of pyonephritis. Of note, patient reportedly went into SVT in the ED with heart rate in the 170s that improved with adenosine 6 mg. Case discussed with ED provider and decision was made to admit patient for sepsis secondary to bilateral pyelonephritis. Found to be positive for E. coli in her blood. Symptoms defervesced, afebrile for over 24 hours. Tolerating p.o. intake. Stable discharge home to complete oral antibiotic course. Problems addressed as follows: #Sepsis #Bilateral pyelonephritis secondary to E. coli complicated by bacteremia ? Septic findings on presentation with CT findings of bilateral pyelonephritis. Urine grossly abnormal. Blood cultures obtained. Blood cultures returned positive for E. coli along with urine culture positive for E. coli. Initially on ceftriaxone. Showing good response. Was transitioned to levofloxacin to complete 10-day course due to bacteremia. Cultures returned sensitive to Levaquin. Pain improving. Tolerating p.o. intake. Afebrile. No nausea or vomiting. Kidney function stable. Recommend follow-up with PCP in the next 1 to 2 weeks to monitor for resolution. Kidney function BUN of 20, creatinine 0.9 on day of discharge. #SVT ? Presented with SVT. Treated with adenosine with resolution. Started on metoprolol succinate 25 mg daily with good rate control. Monitor on telemetry. No further event improved with adenosine. Echo obtained with normal BiV systolic function and no valvular regurg or stenosis #Supratherapeutic hypothyroidism: TSH very low since 2019. Supratherapeutic levothyroxine. Decreased levothyroxine to 125mcg daily #Type 2 diabetes vs hyperglycemia with acute illness: A1c normal at 5.2. Sliding scale insulin during admission for hyperglycemia. Morning glucose 101 on day of discharge. No further indication for treatment of hyperglycemia at discharge #CAD with stents: Continue home aspirin. Hold statin due to sepsis. #Anxiety/depression: Continue home bupropion, doxepin. Total time spent on discharge 38 minutes in counseling, documentation, chart review, and direct care with patient. Exam Data for Last 24 hours Vital signs and Labs for Last 24 Hours: Temp Pulse Resp BP Pulse Ox O2 Del Method O2 Flow Rate 97.9 F 65 16 98/47 L 96 Room Air 3 08/08/24 03:43 08/08/24 03:43 08/08/24 03:43 08/08/24 03:43 08/08/24 03:43 08/08/24 06:37 08/06/24 13:40 Laboratory Results - last 24 hr 08/07/24 06:27: POC Glucose 152 H 08/07/24 11:30: POC Glucose 151 H 08/07/24 16:14: POC Glucose 118 H 08/07/24 20:31: POC Glucose 142 H 08/08/24 05:27: POC Glucose 99 08/08/24 06:11: WBC 8.9, RBC 4.12 L, Hgb 10.6 L, Hct 34.3 L, MCV 83.3, MCH 25.7 L, MCHC 30.9 L, RDW 14.2, Plt Count 235, MPV 10.3, Neut % (Auto) 71.1, Lymph % (Auto) 20.8, [place] % (Auto) 6.3, Eos % (Auto) 1.1, Baso % (Auto) 0.3, Neut # (Auto) 6.3, Lymph # (Auto) 1.9, [place] # (Auto) 0.6, Eos # (Auto) 0.1, Baso # (Auto) 0.0, Sodium 139, Potassium 3.2 L, Chloride 104, Carbon Dioxide 32 H, Anion Gap 6.2, BUN 20 H D, Creatinine 0.90, Estimated Creat Clear 57, Estimated GFR 65, Est GFR ( Amer) 79, Glucose 101 H, Calcium 8.9, Total Bilirubin 0.3, AST 56 H, ALT 47, Alkaline Phosphatase 168 H, Total Protein 6.2 L, Albumin 3.1 L D, Globulin 3.1, Albumin/Globulin Ratio 1.0 L I & O for Last 24 hours: Intake & Output 08/05/24 08/06/24 08/07/24 08/08/24 23:59 23:59 23:59 23:59 Intake Total 1770 / 2290 1460 / 1460 Output Total 0 / 0 0 / 0 Balance 1770 / 2290 1460 / 1460 Weight 104.326 kg 108.091 kg 108.976 kg Microbiology Reports for the Last 24 Hours: Microbiology 08/06/24 10:51 Blood Blood Culture - Preliminary NO GROWTH AFTER 24 HOURS 08/06/24 09:40 Urine,Clean Catch Urine Culture - Preliminary Constitutional Constitutional: no acute distress, morbidly obese and cooperative *Routine HEENT Exam Head: Present normocephalic Eye: Present EOMI and PERRL ENT: Present mucous membranes moist *Routine Neck Exam Neck: Present supple; Absent lymphadenopathy *Routine Respiratory Exam Respiratory: Present CTA bilaterally; Absent rhonchi, wheezes or crackles *Routine Cardiovascular Exam Cardiovascular: Present RRR *Routine Abdominal Exam Abdominal: Present soft, normoactive bowel sounds and tenderness (mild, improved, non-focal) *Routine Rectal Exam Patient deferred: visual exam *Routine Exam Patient deferred: external exam *Routine Extremities Exam Extremities: Absent cyanosis, clubbing or edema *Routine Skin Exam Skin: Present intact and warm; Absent rash *Routine Neurological Exam Neurological: Present alert, oriented X3 and moving all extremities; Absent altered mental status Results Data Completed and Pending Labs on day of discharge: Labs from last 24 hours 08/08/24 08/08/24 08/07/24 06:11 05:27 20:31 WBC 8.9 RBC 4.12 L Hgb 10.6 L Hct 34.3 L MCV 83.3 MCH 25.7 L MCHC 30.9 L RDW 14.2 Plt Count 235 MPV 10.3 Neut % (Auto) 71.1 Lymph % (Auto) 20.8 [place] % (Auto) 6.3 Eos % (Auto) 1.1 Baso % (Auto) 0.3 Neut # (Auto) 6.3 Lymph # (Auto) 1.9 [place] # (Auto) 0.6 Eos # (Auto) 0.1 Baso # (Auto) 0.0 Sodium 139 Potassium 3.2 L Chloride 104 Carbon Dioxide 32 H Anion Gap 6.2 BUN 20 H D Creatinine 0.90 Estimated Creat Clear 57 Estimated GFR 65 Est GFR ( Amer) 79 Glucose 101 H POC Glucose 99 142 H Calcium 8.9 Total Bilirubin 0.3 AST 56 H ALT 47 Alkaline Phosphatase 168 H Total Protein 6.2 L Albumin 3.1 L D Globulin 3.1 Albumin/Globulin Ratio 1.0 L 08/07/24 08/07/24 08/07/24 16:14 11:30 06:27 WBC RBC Hgb Hct MCV MCH MCHC RDW Plt Count MPV Neut % (Auto) Lymph % (Auto) [place] % (Auto) Eos % (Auto) Baso % (Auto) Neut # (Auto) Lymph # (Auto) [place] # (Auto) Eos # (Auto) Baso # (Auto) Sodium Potassium Chloride Carbon Dioxide Anion Gap BUN Creatinine Estimated Creat Clear Estimated GFR Est GFR ( Amer) Glucose POC Glucose 118 H 151 H 152 H Calcium Total Bilirubin AST ALT Alkaline Phosphatase Total Protein Albumin Globulin Albumin/Globulin Ratio Preliminary micro results at discharge 08/06/24 10:51 Blood Culture - Preliminary Blood NO GROWTH AFTER 24 HOURS 08/06/24 09:40 Urine Culture - Preliminary Urine,Clean Catch 08/06/24 10:01 Blood Culture - Preliminary Blood DS: Diagnosis Discharge Diagnosis (1) Sepsis: Status: Acute Code(s): A41.9 - Sepsis, unspecified organism (2) Pyelonephritis: Status: Acute Code(s): N12 - Tubulo-interstitial nephritis, not specified as acute or chronic (3) E coli bacteremia: Status: Acute Code(s): R78.81 - Bacteremia; B96.20 - Unspecified Escherichia coli [E. coli] as the cause of diseases classified elsewhere (4) Morbid obesity with body mass index (BMI) of 40.0 to 49.9: Status: Acute Code(s): E66.01 - Morbid (severe) obesity due to excess calories (5) HTN (hypertension): Status: Chronic Code(s): I10 - Essential (primary) hypertension Qualifiers: Hypertension type: primary hypertension Qualified Code(s): I10 - Essential (primary) hypertension (6) Hypothyroid: Status: Chronic Code(s): E03.9 - Hypothyroidism, unspecified Meds Home Medications and Allergies Home Medications ?Medication ?Instructions ?Recorded ?Confirmed ?Type bupropion HCl 150 mg 24 hr tablet, 150 mg PO DAILY 12/27/23 08/06/24 History extended release doxepin 10 mg capsule 10 mg PO HS 12/27/23 08/06/24 History rosuvastatin 5 mg tablet 5 mg PO DAILY 12/27/23 08/06/24 History aspirin 81 mg tablet,delayed 81 mg PO DAILY 06/02/24 08/06/24 History release (Adult Low Dose Aspirin) mirabegron 25 mg tablet,extended 25 mg PO DAILY 06/14/24 08/06/24 History release 24 hr (Myrbetriq) metformin 500 mg tablet 500 mg PO BID 08/06/24 08/06/24 History semaglutide 0.25 mg or 0.5 mg (2 0.5 mg SQ WEEKLY 08/06/24 08/06/24 History mg/3 mL) subcutaneous pen injector (Ozempic) levofloxacin 750 mg tablet 750 mg PO 0900 7 days #7 tabs 08/08/24 Rx levothyroxine 125 mcg tablet 125 mcg PO DAILYDM 30 days #30 tabs 08/08/24 Rx (Synthroid) metoprolol succinate 25 mg 25 mg PO DAILY 30 days #30 tabs 08/08/24 Rx tablet,extended release 24 hr New Prescriptions to Start Prescriptions: nataliefloxacin Rodrigue Lanier levothyroxine [Synthroid] Rodrigue Lanier metoprolol succinate Rodrigue Lanier Allergies Allergy/AdvReac Type Severity Reaction Status Date / Time Penicillins (PENICILLINS) Allergy Intermediate ITCHING Verified 06/14/24 11:12 morphine (MORPHINE) Allergy Mild ITCHING Verified 06/14/24 11:12 Iodinated Contrast Media AdvReac Intermediate HIVES,COUGH,NAUSEA,DIZZY Verified 06/14/24 11:12 (Iodinated Contrast Media - - NEED TO Oral and) PREMED BEFORE GIVING Discharge Plan Disposition Patient Disposition: Home, Self-Care Condition: Fair Discharge Order Discharge Orders: Discharge Order (Routine); Ordered 08/08/24 Ordered By: Rodrigue Lanier Follow up Plan Follow up with: Genesis Osuna APRN [Nurse Practitioner] - 08/13/24 12:00 pm Prescriptions/Medication Reconciliation: New levothyroxine [Synthroid] 125 mcg Tablet 125 mcg PO DAILYDM 30 Days Qty: 30 0RF levofloxacin 750 mg Tablet 750 mg PO 0900 7 Days Qty: 7 0RF metoprolol succinate 25 mg Tablet Extended Release 24 Hr 25 mg PO DAILY 30 Days Qty: 30 0RF Continued mirabegron [Myrbetriq] 25 mg tablet extended release 24 hr 25 mg PO DAILY Patient Comments: TAKE 1 TABLET BY MOUTH ONCE DAILY aspirin [Adult Low Dose Aspirin] 81 mg tablet,delayed release (DR/EC) 81 mg PO DAILY doxepin 10 mg capsule 10 mg PO HS Patient Comments: TAKE 1 CAPSULE BY MOUTH ONCE DAILY AT BEDTIME rosuvastatin 5 mg tablet 5 mg PO DAILY Patient Comments: TAKE 1 TABLET BY MOUTH ONCE DAILY bupropion HCl 150 mg tablet extended release 24 hr 150 mg PO DAILY Patient Comments: TAKE 1 TABLET BY MOUTH ONCE DAILY metformin 500 mg tablet 500 mg PO BID Patient Comments: TAKE 1 TABLET BY MOUTH TWICE DAILY Ozempic 0.25 mg or 0.5 mg (2 mg/3 mL) pen injector 0.5 mg SQ WEEKLY Patient Comments: INJECT 0.5 MG SUBCUTANEOUSLY ONCE WEEKLY Discontinued levothyroxine 150 mcg tablet 150 mcg PO DAILY Patient Comments: TAKE 1 TABLET BY MOUTH ONCE DAILY Problem Reconciliation Problems Reviewed?: Yes Patient Discharge Instructions ACTIVITY: Continue current activity DIET: continue same diet Patient Instructions: DI for Kidney Infection, DI for Sepsis -- Adult, Stop Light Infection Print Language: Czech Providers Primary Care Provider: Edward Joshi Provider: Hernesto Tidwell Attending Provider: Hernesto Tidwell
[2024-08-08 07:24] LABS: Magnesium 2.2 mg/dl (1.6-2.3)
[2024-08-08 08:00] VITALS: BP 123/57; PULSE 68; RESP 16; TEMP 36.6; O2SAT 100
[2024-08-08] MEDS: buPROPion HCl SR 150MG TAB 150 MG PO (08:46)
[2024-08-08] MEDS: ENOXAPARIN 40MG/0.4ML SYRINGE 40 MG SUBCUT (08:47)
[2024-08-08] MEDS: METOPROLOL SUCCINATE XL 25MG TABLET 25 MG PO (08:47)
[2024-08-08] MEDS: LEVOTHYROXINE 125MCG (0.125MG) TAB 125 MCG PO (08:47)
[2024-08-08] MEDS: levoFLOXacin 750 MG TABLET PO (08:47)
[2024-08-08 09:53] LABS: Hemoglobin A1C 5.2 % (4.0-6.0)
[2024-08-08] MEDS: ACETAMINOPHEN 325MG TAB 650 MG PO (09:58)
[2024-08-08 11:34] LABS: POC Glucose,Bedside 71 (70-110)
[2024-08-08 12:00] VITALS: BP 124/56; PULSE 83; RESP 18; TEMP 36.5; O2SAT 99
--- NOTE | 2024-08-08 12:12 | PC.NURSE ---
pt tolerated taking a shower and is now ambulating in the [facility].
[2024-08-08 13:11] LABS: Thyroid Peroxidase Antibodies 598 IU/mL (0-34)
[2024-08-08] MEDS: POTASSIUM CHLORIDE 20MEQ TAB 40 MEQ PO (13:51)
--- NOTE | 2024-08-09 09:09 | PC.NURSE ---
I sent the pts culture results to the hospitalist group due to her being admitted.
--- NOTE | 2024-08-09 12:13 | SW/DCPLANNER ---
Spoke with patient on the phone. Patient stated that she is doing good still a little sore. Patient stated that she is aware of her upcoming appointments. Patient stated that she was able to get her new medicine picked up. Patient stated that she has no concerns or questions at this time. Marck Moctezuma
== END 2024-08-08 14:18 | disposition home or self-care (01) | DRG 872 ==
LOC: ER 10:06 → 2ND 13:27
PROVIDERS: Internal Medicine Adolescent Medicine; Admitting Provider Student in an Organized Health Care Education/Training Program; Emergency Provider Student in an Organized Health Care Education/Training Program; PCP Internal Medicine Adolescent Medicine; Visit Provider Student in an Organized Health Care Education/Training Program
DX: A41.51 Sepsis due to Escherichia coli [E. coli] (principal); N12 Tubulo-interstitial nephritis, not specified as acute or chronic; I47.10 Supraventricular tachycardia, unspecified; Z68.41 Body mass index [BMI] 40.0-44.9, adult; I25.10 Atherosclerotic heart disease of native coronary artery without angina pectoris; B96.20 Unspecified Escherichia coli [E. coli] as the cause of diseases classified elsewhere; E03.9 Hypothyroidism, unspecified; E11.65 Type 2 diabetes mellitus with hyperglycemia; R07.9 Chest pain, unspecified; F32.A Depression, unspecified; I10 Essential (primary) hypertension; F41.9 Anxiety disorder, unspecified; R11.2 Nausea with vomiting, unspecified; E66.01 Morbid (severe) obesity due to excess calories; T38.1X5A Adverse effect of thyroid hormones and substitutes, initial encounter; E78.5 Hyperlipidemia, unspecified; Z88.0 Allergy status to penicillin; Z88.5 Allergy status to narcotic agent; Z91.041 Radiographic dye allergy status; Z79.899 Other long term (current) drug therapy; Z79.85 Long-term (current) use of injectable non-insulin antidiabetic drugs; Z79.84 Long term (current) use of oral hypoglycemic drugs; Z79.82 Long term (current) use of aspirin; Z95.5 Presence of coronary angioplasty implant and graft; Z90.79 Acquired absence of other genital organ(s); Z90.49 Acquired absence of other specified parts of digestive tract; Z80.9 Family history of malignant neoplasm, unspecified; Z83.3 Family history of diabetes mellitus; Z91.198 Patient's noncompliance with other medical treatment and regimen for other reason
CPT/HCPCS: 36415; 71275; 74177; 80053; 81001; 82803; 82962; 83036; 83605; 83690; 83735; 84484; 85025; 85378; 86376; 86800; 86803; 87040; 87077; 87086; 87088; 87186; 87389; 93005; 93306; 99291; J0153; J0696; J1171; J1200; J1650; J1885; J2270; J2405; J2550; J2919; J7120; Q0162; Q9967